=== PATIENT | female | born 1985 | race Caucasian/White ===

== ENCOUNTER 2024-03-19 13:34 | Emergency (ER) | payer BC, SELFPAY ==
[2024-03-19 13:40] VITALS: BP 125/85; PULSE 81; RESP 18; TEMP 36.8; O2SAT 100; BMI 30.1
[2024-03-19 14:13] LABS: Appearance Urine Clear (Clear); Bilirubin Urine Negative (Negative); Blood Urine 3+ (Negative); Color Urine Yellow (Yellow); Glucose Urine Negative (Negative); Ketones Urine Negative (Negative); Leukocyte Esterase Urine Trace (Negative); Nitrite Urine Negative (Negative); Protein Urine Negative (Negative); Urobilinogen Urine 0.2 (0.2-1.0)
[2024-03-19 14:26] LABS: Bacteria Urine Few; RBC Urine 0-2 (0-2); Squamous Epithelial Cell Urine Few (None-Few); WBC Urine 0-2 (0-5)
--- NOTE | 2024-03-19 15:16 | ED_ITS ---
HPI - General Adult General Date Seen: 03/19/24 Chief complaint: Unspecified Complaint, Adult Stated complaint: 22 week/4 days P, UTI symptoms Time Seen by Provider: 03/19/24 14:46 Source: patient History of Present Illness HPI narrative: Patient is a 38-year-old woman, , at around 22 weeks who presents with urinary symptoms. She is from [place], [place] is in the [place] [id number] for the time being over the holidays. Her 1st was uncomplicated. This she has noted some abdominal cramping she says kind of throughout. The cramping has been a little worse over the past day, she attributes this to poor dietary choices over [place], for example eating too much cheese. She has noted urinary urgency over the past day without associated other symptoms. She became concerned about possible UTI. She has not had any vaginal bleeding or discharge. She had a little bit of sharp right upper abdominal pain yesterday but that has since resolved. She has not had any flank pain. He has not had fevers, chills, nausea or vomiting. Related Data Home Medications ?Medication ?Instructions ?Recorded ?Confirmed cholecalciferol (vitamin D3) PO 03/19/24 03/19/24 docosahexaenoic acid [ DHA] PO 03/19/24 03/19/24 ondansetron HCl [Zofran] PO 03/19/24 03/19/24 Allergies Allergy/AdvReac Type Severity Reaction Status Date / Time No Known Drug Allergies Allergy Verified 03/19/24 13:48 Review of Systems Status of ROS: Reports: 10 or more systems reviewed and unremarkable except as noted in History and below PFSH [facility] Social History Smoking Status: Never smoker How often do you have a drink containing alcohol: never How often do you have six or more drinks on one occasion: Never AUDIT-C Alcohol total score: 0 Non-prescribed substance use: denies use service: No Exam Narrative: Exam Narrative: Vital signs reviewed In general, alert, nontoxic young woman. Head: Normocephalic, atraumatic. Eyes: Sclera clear. Pupils equal and reactive. ENT: Mucous membranes moist. Neck: Supple without adenopathy. Heart: Regular rate and rhythm without murmur. Lungs: Clear. No increased work of breathing, crackles or wheezes. Abdomen: Soft, nontender to palpation. Gravid. No CVA tenderness. Extremities: Well perfused, pulses intact. No significant edema. Neurologic: Alert, conversant. Speech fluent, face symmetric. Moves all extremities equally. Skin: Warm, dry well perfused. Affect: Normal. Const: Vital Signs, click to edit/add: Vital Signs - 24 hr 03/19/24 13:40 Temperature 98.3 F Pulse Rate [Right Pulse Oximeter] 81 Respiratory Rate 18 Blood Pressure [Ri ght Upper Arm] 125/85 Pulse Oximetry 100 Oxygen Delivery Me thod Room Air Documenting provider has reviewed patient's vital signs: yes Course Course ED Course: Initially, we obtained a urinalysis. This was read as showing 3+ blood on the dip, but 0-2 red cells and 0-2 white cells on the micro. She did have a few bacteria. Overall, I reviewed with her that the urinalysis is not strongly suggestive of urinary tract infection. She has not had symptoms for very long so it is possible that we are simply catching it early. However, I recommended that we do an ultrasound, make sure that her bladder is emptying appropriately and check for hydronephrosis. We also discussed her abdominal cramping. She feels strongly that this does not represent contractions and does not want any kind of monitoring at this time. Bedside ultrasound done by myself showed a fairly nondistended bladder. She had no hydronephrosis on the left, but she did have hydronephrosis on the right. I discussed her care with Dr. Martin, on-call for Ob here. Of course, patient is from out of town, and gets her care in [place] in terms of the . She is going to be in the lower however for a period of time if she is going from here to [place] and a couple of days and then on to [place] for a while. At this time, she is not significantly symptomatic, she does not have signs of systemic infection and urinalysis is unremarkable. I think if she has a kidney stone as an explanation for her hydronephrosis, it is unlikely to be causing significant problems at this time. As such, I do not think CT scan today is necessary or warranted. However, we discussed that if she develops flank pain, has fevers, chills, vomiting or other significant worsening, she should be seen in an ER where she is and consideration of CT scanning should be done at that time. Otherwise, I have asked her to follow-up with her OB when she gets back to [place]. I did prescribe Keflex on the off chance that this represents urinary tract infection. Discussed that hydronephrosis could be related to although she is fairly early for that finding. She is comfortable with that plan. Vital Signs Vital signs: Initial Vital Signs Temperature 98.3 F 03/19/24 13:40 Temperature Source Temporal Artery Scan 03/19/24 13:40 Pulse Rate 81 03/19/24 13:40 Pulse Rhythm Regular 03/19/24 13:40 Pulse Strength 3+ Normal 03/19/24 13:40 Respiratory Rate 18 03/19/24 13:40 Blood Pressure 125/85 03/19/24 13:40 Blood Pressure Mean 98 03/19/24 13:40 Blood Pressure Position Sitting 03/19/24 13:40 Pulse Oximetry 100 03/19/24 13:40 Oxygen Delivery Method Room Air 03/19/24 13:40 Vital Signs Temperature 98.3 F 03/19/24 13:40 Pulse Rate 81 03/19/24 13:40 Respiratory Rate 18 03/19/24 13:40 Blood Pressure 125/85 03/19/24 13:40 Pulse Oximetry 100 03/19/24 13:40 Oxygen Delivery Method Room Air 03/19/24 13:40 Temperature 98.3 F 03/19/24 13:40 Pulse Rate 81 03/19/24 13:40 Respiratory Rate 18 03/19/24 13:40 Blood Pressure 125/85 03/19/24 13:40 Pulse Oximetry 100 03/19/24 13:40 Oxygen Delivery Method Room Air 03/19/24 13:40 Medical Decision Making Lab Data Labs: Lab Results 03/19/24 Range/Units 14:02 Urine Color Yellow (Yellow) Urine Appearance Clear (Clear) Urine pH 6.0 (5.0-8.5) Ur Specific [place] 1.010 (1.000-1.030) Urine Protein Negative (Negative) Urine Glucose (UA) Negative (Negative) Urine Ketones Negative (Negative) Urine Blood 3+ A (Negative) Urine Nitrite Negative (Negative) Urine Bilirubin Negative (Negative) Urine Urobilinogen 0.2 (0.2-1.0) Ur Leukocyte Esterase Trace A (Negative) Urine RBC 0-2 (0-2) Urine WBC 0-2 (0-5) Ur Squamous Epith Cells Few (None-Few) Urine Bacteria Few A (None) Discharge Plan Discharge Clinical Impression: Urinary urgency, Hydronephrosis of right kidney Patient Disposition: Home, Self-Care Condition: Stable Instructions: Hydronephrosis (ED), Urinary Urgency and Frequency (DC) Additional Instructions: Take Keflex as prescribed. This is an antibiotic. Urine will be sent for culture, if this grows a specific bacteria that is resistant to this antibiotic we will call you. With regard to the findings in your right kidney on ultrasou nd, it is possible these could be caused by a kidney stone. Sometimes this can occur naturally during as the uterus gets bigger. For now, no specific treatment or diagnostic testing is needed. However, if you develop pain in your right flank, if you have fevers, chills, vomiting or otherwise feel sick, you should be seen again in an ER, and CT scan may be worthwhile at that time to see if you have a kidney stone. If you remain asymptomatic, I would recommend follow-up with your OB doctor when you get back home. In that case, you can tell them that we noted hydronephrosis of the right kidney, without significant blood in the urine. Prescriptions: No Action cholecalciferol (vitamin D3) PO docosahexaenoic acid [ DHA] PO ondansetron HCl [Zofran] PO Follow Up/Referrals: Provider,Not a Local [Primary Care Provider] - Stand Alone Forms: [employer] Info Instructions
--- OUTSIDE RECORDS SUMMARY | 2024-03-19 15:29 | XMS_ITS | Continuity of Care Document ---
Author Organization [facility] Address [address] [place] [address] Care Team Providers Care Radiation Therapy Technician Name Role Phone Mikayla James Primary Care Physician [phone] Encounter Date(s): 10/04/21 - 10/04/21 [facility] [address] [facility] [address] Discharge Disposition: Discharge Attending Physician: Tammy hCo, PJ, FUNMI Allergies, Adverse Reactions, Alerts No Known Allergies Assessment and Plan Future Scheduled Tests Laboratory* ALT 04/07/21 * ALT 07/06/21 * CBC w/ Auto Diff 09/14/21 * Hepatitis C Antibody 04/07/21 * Hepatitis C Antibody 07/06/21 * Urinalysis Macroscopic 02/15/21 * Urinalysis Microscopic 02/15/21 * HIV 1/2 Ag/Ab Combo 02/18/21 * HIV 1/2 Ag/Ab Combo 04/07/21 * HIV 1/2 Ag/Ab Combo 07/06/21 * COVID-19 PCR (In-House) 10/11/21 * COVID-19 PCR (In-House) 10/18/21 * COVID-19 PCR (In-House) 03/08/21 * COVID-19 PCR (In-House) 03/15/21 * COVID-19 PCR (In-House) 01/11/21 * COVID-19 PCR (In-House) 01/18/21 * COVID-19 PCR (In-House) 06/14/21 * COVID-19 PCR (In-House) 04/12/21 * COVID-19 PCR (In-House) 04/19/21 * COVID-19 PCR (In-House) 02/07/21 * COVID-19 PCR (In-House) 02/14/21 * COVID-19 PCR (In-House) 08/02/21 Immunizations Given and Recorded Vaccine Date Status Refusal Reason diphtheria/pertussis, acel/tetanus adult 1 09/12/21 Given SARS-CoV-2(C-19) mRNA (12y+ purple)-PFZ 12/23/20 G iven SARS-CoV-2(C-19) mRNA (12y+ purple)-PFZ 04/01/20 G iven SARS-CoV-2(C-19) mRNA (12y+ purple)-PFZ 2 03/11/20 Given influenza vaccine quadrivalent PF >36mo 3 01/12/20 Recorded influenza virus vaccine quadrivalent, in 12/25/18 Recorded influenza virus vaccine quadrivalent, in 01/06/18 Recorded influenza virus vaccine quadrivalent, in 02/04/17 Recorded influenza virus vaccine quadrivalent, in 01/02/16 Recorded influenza virus vaccine quadrivalent, in 01/31/15 Recorded tetanus/diphtheria/pertussis, acel(Tdap) 08/01/15 Recorded 1Early/Late Reason: Early/Late Reason: Nursing Judgment 2Result Comment: will get 2nd dose in [place], via [facility] - in 3 weeks (04/01/20) 3Result Comment: 2020-02-15: EMPLOYEE HEALTH, RISK & BENEFITS DISCUSSED Medications doxylamine 25 mg oral tablet = 0.5 tab(s), Oral, TID, PRN: for nausea, take with pyridoxine (vitamin B6), # 30 tab(s), 1 Refill(s), Start: 07/13/21 9:16:00 ELIANA, Pharmacy: [facility], Prescription Type: Internal Fixed Income Analyst, 178, cm, 06/21/21 16:51:00 ELIANA, H... Start Date: 07/13/21 Status: Ordered hydrOXYzine hydrochloride 10 mg oral tablet = 1 tab(s), Oral, QID, PRN: anxiety, # 30 tab(s), 0 Refill(s), Start: 07/11/21 11:25:00 ELIANA, Pharmacy: [facility], Prescription Type: Internal Fixed Income Analyst, Anxiety disorder, 178, cm, 06/21/21 16:51:00 AKDT, Height/Length Dosing,... Start Date: 07/11/21 Status: Ordered Multivitamins 1, Oral, Daily, 0 Refill(s), Start: 01/24/21 14:03:00 AKDT, Prescription Type: Internal Fixed Income Analyst Start Date: 01/24/21 Status: Ordered Vitamin B6 50 mg oral tablet = 1 tab(s), Oral, TID, PRN: Nausea, Take with doxylamine, # 180 tab(s), 0 Refill(s), Start: 04/24/21 8:55:00 AKST, Pharmacy: [facility], Prescription Type: Internal Fixed Income Analyst, 178, cm, 03/03/21 11:20:00 AKST, Height/Length Dosing... Start Date: 04/24/21 Status: Ordered Vitamin D3 25 mcg, Oral, Daily, 0 Refill(s), Start: 01/24/21 14:03:00 AKDT, Prescription Type: Internal Fixed Income Analyst Start Date: 01/24/21 Status: Ordered ZyrTEC Daily, 0 Refill(s), Start: 09/12/21 15:07:00 AKDT, Prescription Type: Internal Fixed Income Analyst Start Date: 09/12/21 Status: Ordered Problem List Condition Effective Dates Status Health Status Inform ant Anxiety disorder(Confirmed) Active AMA (advanced maternal age) primigravida 35+(Confirmed) Active Exercise-induced asthma(Confirmed) Active Maternal family history of dementia(Confirmed) Active Family history of malignant melanoma of skin(Confirmed) Active 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/21 Active Social History Social History Type Response Tobacco Tobacco Use: Denies tobacco use. 1 Sex Female 1in past >3yr pt would spoke only at parties socially, from [id number] Care Team Personnel Name: Mikayla James MD Address: Address: [address], [place] [address]
--- OUTSIDE RECORDS SUMMARY | 2024-03-19 15:29 | XMS_ITS | Continuity of Care Document ---
Author Organization [facility] Address [address] [place] [address] Care Team Providers Care Stonemason Apprentice Name Role Phone Mikayla James Primary Care Physician Encounter Date(s): 05/31/21 - 05/31/21 [facility] [address] [facility] [place] [address] Discharge Disposition: Discharge Attending Physician: Mikayla James MD Referring Physician: Mikayla James MD Allergies, Adverse Reactions, Alerts No Known Allergies Assessment and Plan Diagnostic Tests Pending * COVID-19 PCR (In-House) 05/31/21 Future Scheduled Tests Laboratory* ALT 04/07/21 * ALT 07/06/21 * Hepatitis C Antibody 04/07/21 * Hepatitis C Antibody 07/06/21 * Urinalysis Macroscopic 02/15/21 * Urinalysis Microscopic 02/15/21 * HIV 1/2 Ag/Ab Combo 02/18/21 * HIV 1/2 Ag/Ab Combo 04/07/21 * HIV 1/2 Ag/Ab Combo 07/06/21 * COVID-19 08/10/20 * COVID-19 PCR (In-House) 03/08/21 * COVID-19 PCR (In-House) 03/15/21 * COVID-19 PCR (In-House) 01/11/21 * COVID-19 PCR (In-House) 01/18/21 * COVID-19 PCR (In-House) 05/24/21 * COVID-19 PCR (In-House) 06/07/21 * COVID-19 PCR (In-House) 06/14/21 * COVID-19 PCR (In-House) 04/12/21 * COVID-19 PCR (In-House) 04/19/21 * COVID-19 PCR (In-House) 02/07/21 * COVID-19 PCR (In-House) 02/14/21 Immunizations Given and Recorded Vaccine Date Status Refusal Reason SARS-CoV-2 mRNA(tozinameran) vaccine-Pfz 12/23/20 Given SARS-CoV-2 mRNA(tozinameran) vaccine-Pfz 04/01/20 Given SARS-CoV-2 mRNA(tozinameran) vaccine-Pfz 1 03/11/20 Given influenza vaccine quadrivalent PF >36mo 2 01/12/20 Recorded influenza virus vaccine quadrivalent, in 12/25/18 Recorded influenza virus vaccine quadrivalent, in 01/06/18 Recorded influenza virus vaccine quadrivalent, in 02/04/17 Recorded influenza virus vaccine quadrivalent, in 01/02/16 Recorded influenza virus vaccine quadrivalent, in 01/31/15 Recorded tetanus/diphtheria/pertussis, acel(Tdap) 08/01/15 Recorded 1Result Comment: will get 2nd dose in [place], via [facility] - in 3 weeks (04/01/20) 2Result Comment: 2020-02-15: EMPLOYEE HEALTH, RISK & BENEFITS DISCUSSED Medications doxylamine 25 mg oral tablet = 0.5 tab(s), Oral, TID, PRN: for nausea, take with pyridoxine (vitamin B6), # 30 tab(s), 0 Refill(s), Start: 04/24/21 8:55:00 AKST, Pharmacy: [facility], Prescription Type: Internal Scuba Diving Instructor, 178, cm, 03/03/21 11:20:[address]... Start Date: 04/24/21 Status: Ordered Multivitamins 1, Oral, Daily, 0 Refill(s), Start: 01/24/21 14:03:00 AKDT, Prescription Type: Internal Scuba Diving Instructor Start Date: 01/24/21 Status: Ordered Vitamin B6 50 mg oral tablet = 1 tab(s), Oral, TID, PRN: Nausea, Take with doxylamine, # 180 tab(s), 0 Refill(s), Start: 04/24/21 8:55:00 AKST, Pharmacy: [facility], Prescription Type: Internal Scuba Diving Instructor, 178, cm, 03/03/21 11:20:00 AKST, Height/Length Dosing... Start Date: 04/24/21 Status: Ordered Vitamin D3 25 mcg, Oral, Daily, 0 Refill(s), Start: 01/24/21 14:03:00 AKDT, Prescription Type: Internal Scuba Diving Instructor Start Date: 01/24/21 Status: Ordered Problem List Condition Effective Dates Status Health Status Inform ant Anxiety disorder(Confirmed) Active AMA (advanced maternal age) primigravida 35+(Confirmed) Active Exercise-induced asthma(Confirmed) Active Maternal family history of dementia(Confirmed) Active Family history of malignant melanoma of skin(Confirmed) Active (Confirmed) 02/27/21 Active Social History Social History Type Response Tobacco Tobacco Use: Denies tobacco use. 1 Sex Female 1in past >3yr pt would spoke only at parties socially, from [phone]
--- OUTSIDE RECORDS SUMMARY | 2024-03-19 15:29 | XMS_ITS | Continuity of Care Document ---
Author Organization [facility] Address [address] [place] [address] Care Team Providers Care Cashier Credit Name Role Phone Mikayla James Primary Care Physician [phone] Encounter Date(s): 11/01/21 - 11/01/21 [facility] [address] [place] [facility] [place] [address] Discharge Disposition: Discharge Attending Physician: Tammy Cho, PJ, FUNMI Allergies, Adverse Reactions, Alerts No [...] Ag/Ab Combo 07/06/21 * COVID-19 PCR (In-House) 03/08/21 * COVID-19 PCR (In-House) 03/15/21 * COVID-19 PCR (In-House) 01/11/21 * COVID-19 PCR (In-House) 01/18/21 * COVID-19 PCR (In-House) 06/14/21 * COVID-19 PCR (In-House) 04/12/21 * COVID-19 PCR (In-House) 04/19/21 * COVID-19 PCR (In-House) 11/08/21 * COVID-19 PCR (In-House) 11/15/21 * COVID-19 PCR (In-House) 11/22/21 * COVID-19 PCR (In-House) 02/07/21 * COVID-19 [...] 2Result Comment: will get 2nd dose in [place], via [facility] - in 3 weeks (04/01/20) 3Result Comment: 2020-02-15: EMPLOYEE HEALTH, RISK & BENEFITS DISCUSSED Medications famotidine 10 mg oral tablet = 1 tab(s), Oral, BID, # 60 tab(s), 1 Refill(s), Start: 10/11/21 13:59:00 AKDT, Pharmacy: [facility], Prescription Type: Internal Hydrator, 178, cm, 10/11/21 13:31:00 AKDT, Height/Length Dosing, 92.9, kg, 10/11/21 13:31:00 AKDT... Start Date: 10/11/21 Status: Ordered hydrOXYzine hydrochloride 10 mg oral tablet = 1 tab(s), Oral, QID, PRN: anxiety, # 30 tab(s), 0 Refill(s), Start: 07/11/21 11:25:00 AKDT, Pharmacy: [facility], Prescription Type: Internal Hydrator, Anxiety disorder, 178, cm, 06/21/21 16:51:00 AKDT, Height/Length Dosing,... Start Date: 07/11/21 Status: Ordered Multivitamins 1, Oral, Daily, 0 Refill(s), Start: 01/24/21 14:03:00 AKDT, Prescription Type: Internal Hydrator Start Date: 01/24/21 Status: Ordered Vitamin B6 50 mg oral tablet = 1 tab(s), Oral, TID, PRN: Nausea, Take with doxylamine, # 180 tab(s), 0 Refill(s), Start: 04/24/21 8:55:00 AKST, Pharmacy: [facility], Prescription Type: Internal Hydrator, 178, cm, 03/03/21 11:20:00 AKST, Height/Length Dosing... Start Date: 04/24/21 Status: Ordered Vitamin D3 25 mcg, Oral, Daily, 0 Refill(s), Start: 01/24/21 14:03:00 AKDT, Prescription Type: Internal Hydrator Start Date: 01/24/21 Status: Ordered ZyrTEC Daily, 0 Refill(s), Start: 09/12/21 15:07:00 AKDT, Prescription Type: Internal Hydrator Start Date: 09/12/21 Status: Ordered Problem List Condition Effective Dates Status Health Status Inform ant Anxiety disorder(Confirmed) Active AMA (advanced maternal age) primigravida 35+(Confirmed) Active Exercise-induced asthma(Confirmed) Active Maternal family history of dementia(Confirmed) Active Family history of malignant melanoma of skin(Confirmed) Active 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/21 Active Results Radiology Reports * Exam Date Time Procedure Performing Provider Status 11/01/21 8:40 AM US OB Limited - One or More Fetuses Elzbieta Webber; Auth (Verified) Notes: (US OB Limited - One or More Fetuses) Reason For Exam: BPP Report Patient Name: DYLON HEREDIA Patient : 1985 Referring Physician: Tammy Cho Exam: US OB Limited - One or More Fetuses Exam Reason: BPP Follow-up OB ultrasound. Comparison: None Findings: Single intrauterine is again demonstrated with fetus in cephalic presentation. The placenta is located posteriorly. The lower uterine segment is obscured by baby's head. The amniotic fluid index measured 12.3 cm. heart rate measured 138 bpm. biophysical profile was assessed as follows: breathing 2/2 tone 2/2 general body movement 2/2 Impression: Single intrauterine with biophysical profile score / Radiologist: Leonora Rodriguez MD Signed: 11/01/2021 8:53 AM Transcribed: 11/01/2021 8:50 AM Leonora Rodriguez MD Final Report Dictated by: Leonora Rodriguez MD Signed by: Leonora Rodriguez MD Signed (Electronic Signature): 11/01/2021 08:53 Transcribed by: LE Social History Social History Type Response Tobacco Tobacco Use: Denies tobacco use. 1 Sex Female 1in past >3yr pt would spoke only at parties socially, from [id number] Imaging * CONTRIBUTOR_SYSTEM, NUANCE: PERFORM Leonora Rodriguez MD: VERIFY, VERIFY Leonora Rodriguez MD: VERIFY, TRANSCRIBE Leonora Rodriguez MD: TRANSCRIBE Event Display: Report Authored Date: [id number] Patient Name: DYLON HEREDIA Patient : 1985 Referring Physician: Tammy Cho Exam: US OB Limited - One or More Fetuses Exam Reason: BPP Follow-up OB ultrasound. Comparison: None Findings: Single intrauterine is again demonstrated with fetus in cephalic presentation. The placenta is located posteriorly. The lower uterine segment is obscured by baby's head. The amniotic fluid index measured 12.3 cm. heart rate measured 138 bpm. biophysical profile was assessed as follows: breathing 2/2 tone 2/2 general body movement 2/2 Impression: Single intrauterine with biophysical profile score / Radiologist: Leonora Rodriguez MD Signed: 11/01/2021 8:53 AM Transcribed: 11/01/2021 8:50 AM Leonora Rodriguez MD Final Report Dictated by: Leonora Rodriguez MD Signed by: Leonora Rodriguez MD Signed (Electronic Signature): 11/01/2021 08:53 Transcribed by: RUSLAN Care Team Care Team Personnel Name: Mikayla James MD Position: Rural Provider ([facility]) Member Role: Primary Care Provider Address: Address: [address] [address]- [place] Care Team Related Persons Name: EARNEST HEREDIA Address: Home [place] Name: EARNEST HEREDIA Address: Home [address] [place] [address] Name: MANJEET ARIAS Address: [address] [address] Address: Home [address] [place] [id number] Address: Mailing [address] [place] [id number]
--- OUTSIDE RECORDS SUMMARY | 2024-03-19 15:29 | XMS_ITS | Continuity of Care Document ---
Author Organization [facility] Address [address] [facility] [place] [address] Care Team Providers Care Curator Of Manuscripts Name Role Phone Mikayla James Primary Care Physician [phone] Encounter Date(s): 06/21/21 - 06/21/21 [facility] [address] [facility] [place] [address] [place] [phone] Encounter Diagnosis (Discharge Diagnosis) - 06/21/21 Rash(Discharge Diagnosis) - 06/21/21 Discharge Disposition: Discharge Attending Physician: Tammy Cho FNP, DNP Allergies, Adverse Reactions, Alerts No Known Allergies Assessment and Plan Extracted from: Title:[facility]: rash Author:Scott Cho FNP, DNP Date:06/21/21 Overall doing well except nausea and now noted rash Continue with conservative management of nausea with small frequent meals. She did not find meds particularly helpful and trying to avoid Delivery- [place] - interested Circumcision- need to discuss at next visit her thoughts Post delivery contraception- need to discuss at next visit Ordered: Office Visit Est 10-19 Min Rash Pictures obtained and sent to [facility] [employer] DDx is broad- could just be eczema that is now more pronounced. Seems early in for PUPPS or intrahepatic cholestasis and it is not itchy. Labs obtained showing now significant red flags Ordered: CBC w/ Auto Diff CMP WB Office Visit Est 10-19 Min Future Scheduled Tests Laboratory* ALT 04/07/21 * [...] PCR (In-House) 01/18/21 * COVID-19 PCR (In-House) 06/28/21 * COVID-19 PCR (In-House) 07/05/21 * COVID-19 PCR (In-House) 07/12/21 * COVID-19 PCR (In-House) 07/19/21 * COVID-19 PCR (In-House) 06/14/21 * COVID-19 [...] 1Result Comment: will get 2nd dose in [place],her [place], via [facility] - in 3 weeks (04/01/20) 2Result Comment: 2020-02-15: EMPLOYEE HEALTH, RISK & BENEFITS DISCUSSED Medications doxylamine 25 mg oral tablet = 0.5 tab(s), Oral, TID, PRN: for nausea, take with pyridoxine (vitamin B6), # 30 tab(s), 1 Refill(s), Start: 06/07/21 14:49:00 AKDT, Pharmacy: [facility], Prescription Type:Internal Coffee Roaster Helper, 178, cm, 03/03/21 11:20:00 AKST,... Start Date: 06/07/21 Status: Ordered Multivitamins 1, Oral, Daily, 0 Refill(s), Start: 01/24/21 14:03:00 AKDT, Prescription Type: Internal Coffee Roaster Helper Start Date: 01/24/21 Status: Ordered Vitamin B6 50 mg oral tablet = 1 tab(s), Oral, TID, PRN: Nausea, Take with doxylamine, # 180 tab(s), 0 Refill(s), Start: 04/24/21 8:55:00 AKST, Pharmacy: [facility], Prescription Type: Internal Coffee Roaster Helper, 178, cm, 03/03/21 11:20:00 AKST, Height/Length Dosing... Start Date: 04/24/21 Status: Ordered Vitamin D3 25 mcg, Oral, Daily, 0 Refill(s), Start: 01/24/21 14:03:00 AKDT, Prescription Type: Internal Coffee Roaster Helper Start Date: 01/24/21 Status: Ordered Problem List Condition Effective Dates Status Health Status Inform ant Anxiety disorder(Confirmed) Active AMA (advanced maternal age) primigravida 35+(Confirmed) Active Exercise-induced asthma(Confirmed) Active Maternal family history of dementia(Confirmed) Active Family history of malignant melanoma of skin(Confirmed) Active (Confirmed) 02/27/21 Active Diagnosis Diagnosis Type Effective Dates Health Status Clini veronique Service Informant Discharge Diagnosis 06/21/21 Non-Specified Rash Discharge Diagnosis 06/21/21 Non-Specified Vital Signs Most recent to oldest [Reference Range]: 1 Temperature Temporal Artery [97.3-100.6 DegF] 97.8 DegF (06/21/21 4:51 PM) Peripheral Pulse Rate [60-100 bpm] 68 bp m (06/21/21 4:51 PM) Respiratory Rate [14-20 br/min] 12 br/mi n *LOW* (06/21/21 4:51 PM) Blood Pressure [90-140/60-90 mmHg] 105/7 3mmHg (06/21/21 4:51 PM) Mean Arterial Pressure, Cuff [59-90 mmHg ] 84 mmHg (06/21/21 4:51 PM) SpO2 100 % (06/21/21 4:51 PM) Social History Social History Type Response Tobacco Tobacco Use: Denies tobacco use. 1 Sex Female 1in past >3yr pt would spoke only at parties socially, from [phone]
--- OUTSIDE RECORDS SUMMARY | 2024-03-19 15:29 | XMS_ITS | Continuity of Care Document ---
Author Organization [facility] [place] [facility] Address [address] [place] [address], [place] [address] Care Team Providers Care Highway Patrol Commander Name Role Phone Mikayla James Primary Care Physician Encounter Date(s): 10/27/21 - 10/27/21 [facility] [address] [facility] [place] [address] [place] [phone] Encounter Diagnosis Circumvallate placenta(Discharge Diagnosis) - 10/27/21 AMA (advanced maternal age) primigravida 35+(Discharge Diagnosis) - 10/27/21 (Discharge Diagnosis) - 10/27/21 Discharge Disposition: Discharge Attending Physician: Tammy Cho FNP, FUNMI Allergies, Adverse Reactions, Alerts No Known Allergies Assessment and Plan Extracted from: Title:[facility]: f/u ob Author:Tammy Cho F FARM TRACTOR OPERATOR, DNP Date:10/27/21 1. Suspect round ligament pain after playing freebee: UA unremarkable -offered pelvic exam to evaluate for BV and /or candidiasis-declines at this time -open to exam if sx continue Due for GBS at 36 weeks Delivery- [place] with Dr. Cuellar or Dr. Frederick - interested Circumcision- if boy would like circumcision Post delivery contraception- condoms Ordered: Office Visit Est 20-29 Min Referral Urinalysis with Reflex Microscopic US OB Limited - One or More Fetuses 2. Circumvallate placenta Will obtain follow up u/s next week to ensure ongoing stable placental and good growth. Ordered: Office Visit Est 20-29 Min 3. AMA (advanced maternal age) primigravida 35+ antepartum monitoring (NST 2x/week and JACQUES weekly) began at 34 weeks or BPP weekly-u/s clinic next week so will obtain BPP-order placed. -Transfer of care at 37 weeks-has housing and apt with tablet coater established Point of Care Ultrasound (POCUS) images JACQUES calculated at 13.9 . No fluid pocket less than cm. Active FM and cardiac activity observed. NST showing good HR variability and no contractures. Plan face to face follow up in 1 week or RTC/call sooner if health status worsens or concerns develop. 20-29 minutes were spent performing the following activities on the day of service: reviewing the patient's medical record, obtaining and/or reviewing separately obtained history, performing a medically appropriate history and examination, counseling and educating the patient/family/caregiver, ordering prescription medications/tests/procedures, referring and communicating with other health care providers during visit, documenting clinical information in the electronic health record, independently interpreting results, communicating results to the patient/family/caregiver, and/or coordinating the care of the patient. Future Scheduled Tests Laboratory* ALT 04/07/21 * [...] PCR (In-House) 04/19/21 * COVID-19 PCR (In-House) 11/01/21 * COVID-19 PCR (In-House) 11/08/21 * COVID-19 PCR (In-House) 11/15/21 * COVID-19 PCR (In-House) 11/22/21 * COVID-19 PCR (In-House) 02/07/21 * COVID-19 PCR (In-House) 02/14/21 * COVID-19 PCR (In-House) 08/02/21 Radiology* US OB Limited - One or More Fetuses 11/01/21 Immunizations Given and Recorded Vaccine Date Status [...] 2Result Comment: will get 2nd dose in [place],her hometown, via [facility] - in 3 weeks (04/01/20) 3Result Comment: 2020-02-15: EMPLOYEE HEALTH, RISK & BENEFITS DISCUSSED Medications famotidine 10 mg oral tablet = 1 tab(s), Oral, BID, # 60 tab(s), 1 Refill(s), Start: 10/11/21 13:59:00 AKDT, Pharmacy: [facility], Prescription Type: Internal Stock Feeder, 178, cm, 10/11/21 13:31:00 AKDT, Height/Length Dosing, 92.9, kg, 10/11/21 13:31:00 AKDT... Start Date: 10/11/21 Status: Ordered hydrOXYzine hydrochloride 10 mg oral tablet = 1 tab(s), Oral, QID, PRN: anxiety, # 30 tab(s), 0 Refill(s), Start: 07/11/21 11:25:00 AKDT, Pharmacy: [facility], Prescription Type: Internal Stock Feeder, Anxiety disorder, 178, cm, 06/21/21 16:51:00 AKDT, Height/Length Dosing,... Start Date: 07/11/21 Status: Ordered Multivitamins 1, Oral, Daily, 0 Refill(s), Start: 01/24/21 14:03:00 AKDT, Prescription Type: Internal Stock Feeder Start Date: 01/24/21 Status: Ordered Vitamin B6 50 mg oral tablet = 1 tab(s), Oral, TID, PRN: Nausea, Take with doxylamine, # 180 tab(s), 0 Refill(s), Start: 04/24/21 8:55:00 AKST, Pharmacy: [facility], Prescription Type: Internal Stock Feeder, 178, cm, 03/03/21 11:20:00 AKST, Height/Length Dosing... Start Date: 04/24/21 Status: Ordered Vitamin D3 25 mcg, Oral, Daily, 0 Refill(s), Start: 01/24/21 14:03:00 AKDT, Prescription Type: Internal Stock Feeder Start Date: 01/24/21 Status: Ordered ZyrTEC Daily, 0 Refill(s), Start: 09/12/21 15:07:00 AKDT, Prescription Type: Internal Stock Feeder Start Date: 09/12/21 Status: Ordered Problem List Condition Effective Dates Status Health Status Inform ant Anxiety disorder(Confirmed) Active AMA (advanced maternal age) primigravida 35+(Confirmed) Active Exercise-induced asthma(Confirmed) Active Maternal family history of dementia(Confirmed) Active Family history of malignant melanoma of skin(Confirmed) Active 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/21 Active Diagnosis Diagnosis Type Effective Dates Health Status Clinical Service Informant Discharge Diagnosis 10/27/21 Circumvallate placenta Discharge Diagnosis 10/27/21 AMA (advanced maternal age) primigravida 35+ Discharge Diagnosis 10/27/21 Results Laboratory List Name Date Urinalysis with Reflex Microscopic 2 Most recent to oldest [Reference Range]: 1 Specific Alba [1.005-1.030] 1.015 (10/27/21 11:22 AM) pH - Urine [5-8] 7.0 (10/27/21 11:22 AM) Leukocytes Esterase [NEGATIVE-NEGATIVE] NEGATIVE (10/27/21: AM) Nitrites [NEGATIVE-NEGATIVE] NEGATIVE (10/27/21 AM) Protein [NEGATIVE-NEGATIVE mg/dL] NEGATI VE mg/dL (10/27/21 11:22 AM) Ketones [NEGATIVE-NEGATIVE mg/dL] NEGATI VE mg/dL (10/27/21: AM) Urobilinogen [0.2-1.0 EU/dL] 0.2 EU/dL (10/27/21 11:22 AM) Bilirubin [NEGATIVE-NEGATIVE] NEGATIVE (10/27/21 AM) Blood [NEGATIVE-NEGATIVE] NEGATIVE (10/27/21 AM) COLOR - Urine [YELLOW] YELLOW (10/27/21: AM) Glucose UA [NEGATIVE-NEGATIVE mg/dL] NEG ATIVE mg/dL (10/27/21: AM) Urine Appearance [CLEAR] CLEAR (10/27/21: AM) Urine Source Clean Catch (10/27/21 11: AM) Vital Signs Most recent to oldest [Reference Range]: 1 Temperature Temporal Artery [97.3-100.6 DegF] 96.8 DegF *LOW* (10/27/21 10:54 AM) Peripheral Pulse Rate [60-100 bpm] 75 bp m (10/27/21 10:54 AM) Respiratory Rate [14-20 br/min] 16 br/mi n (10/27/21 10:54 AM) Blood Pressure [90-140/60-90 mmHg] 116/7 9mmHg (10/27/21 10:54 AM) Mean Arterial Pressure, Cuff [59-90 mmHg ] 91 mmHg *HI* (10/27/21 10:54 AM) SpO2 100 % (10/27/21 10:54 AM) Height/Length Dosing 178 cm (10/27/21 10:54 AM) Height/Length Measured 178 cm (10/27/21 10:54 AM) Weight Measured 94.3 kg (10/27/21 10:54 AM) Weight Dosing 94.3 kg (10/27/21 10:54 AM) Body Mass Index Measured 29.76 kg/m2 (10/27/21 10:54 AM) Social History Social History Type Response Tobacco Tobacco Use: Denies tobacco use. 1 Sex Female 1in past >3yr pt would spoke only at parties socially, from [id number] OB Documentation-Provider * Tammy Cho, INSPECTOR SUBASSEMBLIES, DNP: PERFORM Event Display: OB Documentation-Provider Authored Date: [id number] Chief Complaint OB here for NST and JACQUES Para Information: ??:??1 ??Para Term:??0 ??Para :??0 ??Para Abortions:??0 ??Para Living:??0 BUTCH/EGA Gestational Age (EGA) and BUTCH? * Note: EGA calculated as of 10/27/2021 ?? BUTCH:??12/04/2021?EGA*:??34 weeks 4 days ?Type:??Initial?Method Date:??02/27/2021 ?Method:??Last Menstrual Period??(02/27/2021) ?Confirmation:??Confirmed ?Description:??-- ?Comments:??-- ?Entered by:??Teresa Brooks, LENI on 04/14/2021? Other BUTCH Calculations for this : ?No additional BUTCH calculations have been recorded for this History of Present Illness Ms. Heredia is a evert 35 yo female who is . Today gestation??34 wk and??4 days. BUTCH 12/04/2021. ?? Presents today for OB follow up. Initially evaluated at [place] [facility] for circumvallate placenta but she and baby have been doing well. Now established with Dr. Cuellar/Dr. Frederick in [place]. Plans to travel at 37 weeks to [place] and await delivery. Still having occasional nausea, but much improved. Finds that taking famotidine has been helpful. ?? Shares that she to a nice walk with partner the other day and then played frishbee. Noted after to have lower abd cramping that has been persistent. No BH or contractions. Denies any vaginal discharge. Good movement. Has noted this issues intermittently in , but usually resolves. Review of Systems Patient has vitamins and is compliant. Patient does not have scotoma or other visual disturbance. Patient does not have headache. Patient does occcasionally??have nausea or vomiting. Patient does not have back pain. Patient does??have lower abdominal /pelvic pain. Patient does not have contractions. Patient does not have Anurag Feldman contractions. Patient does not have vaginal discharge present. Patient does not have vaginal bleeding. Patient does not have dysuria. Patient is having?? movement. Patient does not have swelling in the legs/ankles/hands. ?? Physical Exam Vitals & Measurements T:??96.8?F ??(Temporal Artery)?? HR:??75??(Peripheral)?? RR:??16?? BP:??116/79?? SpO2:??100%?? HT:??178??cm?? WT:??94.3??kg?? BMI:??29.76?? Visit Assessment EGA, per Visit: 34W 4D (10/27/21) Weight Measured: 94.3 kg (10/27/21) Fundal Height: 33 cm (10/27/21) Systolic Blood Pressure: 116 mmHg (10/27/21) Diastolic Blood Pressure: 79 (10/27/21) Mean Arterial Pressure, Cuff:??91 mmHg??High (10/27/21) Labor Signs/Symptoms: Pelvic pain (10/27/21) Next Appointment: 1 week(s) (10/27/21) Baby A - Heart Tones: 135 bpm (10/27/21) Baby A - Activity: Present per palpation (10/27/21) GEN: Well developed well nourished??. Patient appears alert and oriented, in no apparent distress. HEENT: Normocephalic, atraumatic. NECK: Symmetrical and Supple without lymphadenopathy or masses. RESP: Lungs clear to auscultation bilaterally. Good air movement and chest expansion. HEART: Regular rate. Capillary refill <2 seconds. Radial pulses +2 bilaterally. ABD: FH 33cm. FHR 135-140 EXT: No clubbing, cyanosis or pedal edema. NEURO: No focal deficits noted.?? Equal strength and coordination noted bilaterally. PSYCH: Normal mood and affect. Good eye contact and engages easily. Reliable historian. ?? 03/31/2021 U HCG Positive ?? 05/14/2021 HBsAg negative HIV non reactive HCV negative RPR negative gluc 94 Hgb A1c 4.7% Vitamin D 53.2 ABO (0) RH (Positive) CBC: wbc 7.5, H/H 13.4/37.2, PLT 308 UA : gluc neg, bili neg, ket neg, SG 1.025, Bld Neg, PH 5.5, Pro neg, Nit neg, leuk neg Chl/GC- negative Urine culture- no growth ? 05/17/2021 [id number]: negative for all testing??completed?06/21/2021 CMP: NA 134, K 3.5, Glu 122 (just ate), CA 9.6, Bun 11, Creat 0.6, ALKP 62, ALT 21, AST 21, Tbil 0.5, TP 6.9, eGFR 113 CBC wbc 10.8, H/H 12.9/35.7, PLT 302: ?? 08/15/2021: 2GTT: 1 Hr (95) 2HR (64) FBS 87 ? CBC: wbc 10.2, HH 10.2/12.9, PLT 313 ?? 09/12/2021: Tdap ? 05/17/2021 U/s [facility] [place]:??per rad read: consistent with 12 weeks 0 days gestation. Large gestational sac showing echogenic structure suggestive of placenta which seems overly large compared to the size of the poles and there is echogenicity surrounding the large portion of this structure concerning??for subchorionic hemorrhage and possible abruption. ?? 05/24/2021 U/s [place]??[place]: per rad read: u/s consistent with 12 w 2d corresponding with BUTCH 12/04/2021. Nuchal translucency is normal measuring 0.9mm. JACQUES normal for a gestation. Placenta posterior with superior eccentric PCI. Early appearance of circumvallate development with no retroplacental collection or abruption suspected. Hyperechoic area on the anterior uterine wall is noted and may represent an old subchorionic collection or previously identified uterine polyp. Follow up recommended at 18 weeks gestation. ?? 05/24/[address] Patel at [place] notes: recommend repeating evaluation??at 18 weeks gestation. Area of concern possible subchorionic collection. posterior placenta??appears to be developing circumvallate with slightly eccentric superior cord insertion. Small anterior retromembranous ech ogenic area may represent prior subchorionic hemorrhage or previously noted polyp. ?? 07/03/[address] Patel at [place] notes: recommended repeating u/s in 8weeks to followup circumvallate placenta and for better visualization of face and heart which were not fully seen on u/s. U/s showed growth 61% and AC is at 55%. Placenta posterior and abnormal in appearance demonstrating folding of the lateral edges. Findings suspected to be that of circumvallate placenta.Uterine wall contraction was note don u/s. ?? 10/05/2021 u/s [facility] rad read: 32 w 4d. appropriate growth. Posterior placenta. CL 3.4. circumvallate placenta unchanged. JACQUES 14.6 Assessment/Plan 1.?? Suspect round ligament pain after playing freebee: UA unremarkable -offered pelvic exam to evaluatefor BV and /or candidiasis-declines at this time -open to exam if sx continue ?? Due for GBS at 36 weeks ?? Delivery- [place] with Dr. Cuellar or Dr. Frederick - interested Circumcision- if boy would like circumcision Post delivery contraception- condoms Ordered: Office Visit Est 20-29 Min Referral Urinalysis with Reflex Microscopic US OB Limited - One or More Fetuses ?? 2.??Circumvallate placenta Will obtain follow up u/s next week to ensure ongoing stable placental and good growth. Ordered: Office Visit Est 20-29 Min ?? 3.??AMA (advanced maternal age) primigravida 35+ antepartum monitoring (NST 2x/week and JACQUES weekly) began at?? 34 weeks or BPP weekly-u/s clinic next week so will obtain BPP-order placed. -Transfer of care at 37 weeks-has housing and apt with tablet coater established ?? Point of Care Ultrasound (POCUS) images? JACQUES calculated at 13.9??.?? No fluid pocket less than cm.?? Active FM and cardiac activity observed.? NST showing good HR variability and no contractures. ? Plan face to face follow up in 1 week??or RTC/call sooner if health status worsens or concerns develop. ?? 20-29 minutes were spent performing the following activities on the day of service:?? reviewing the patient's medical record, obtaining and/or reviewing separately obtained history, performing a medically appropriate history and examination, counseling and educating the patient/family/caregiver,ordering prescription medications/tests/procedures, referring and communicating with other health care providers during visit, documenting clinical information in the electronic health record, independently interpreting results, communicating results to the patient/family/caregiver, and/or coordinating the care of the patient.? Plan No qualifying data available. Medications famotidine 10 mg oral tablet, 10 mg= 1 tab(s), Oral, BID, 1 refills hydrOXYzine hydrochloride 10 mg oral tablet, 10 mg= 1 tab(s), Oral, QID, PRN Multivitamins, 1, Oral, Daily Vitamin B6 50 mg oral tablet, 50 mg= 1 tab(s), Oral, TID, PRN Vitamin D3, 25 mcg, Oral, Daily ZyrTEC, Daily Allergies NKA Gynecological History ?? History?(0,0,0,0)?No previous pregnancies history have been recorded Problem List/Past Medical History Ongoing AMA (advanced maternal age) primigravida 35+ Anxiety disorder Circumvallate placenta Exercise-induced asthma Family history of malignant melanoma of skin Maternal family history of dementia Historical Dysuria Social History Alcohol Denies alcohol use, not drinking due to , 06/21/2021 Current, Beer, Wine, Liquor, 1-2 times per week, Household alcohol concerns: No., 02/15/2020 Substance Abuse Denies substance abuse, 02/15/2020 Tobacco Tobacco Use: Denies tobacco use., 02/15/2020 Risk Factors, Ethnic & Genetic Disorder Screening Risk Factors (Current ) ?No risk factors have been recorded for this . ?? Ethnic Screening ?No ethnicities have been recorded. ?? Genetic Disorders Screening ?No genetic disorders have been recorded. PJ Tate, DNP Care Team Care Team Personnel Name: Mikayla James MD Position: Rural Provider ([facility]) Member Role: Primary Care Provider Address: Address: [address] [address]- Care Team Related Persons Name: EARNEST HEREDIA Address: [facility] Name: EARNEST HEREDIA Address: Home [address] [place] [address] Name: MANJEET ARIAS Address: [address] [address] Address: Home [address] [place] [id number] Address: Mailing [address] [place] [id number]
--- OUTSIDE RECORDS SUMMARY | 2024-03-19 15:29 | XMS_ITS | Continuity of Care Document ---
Author Organization [facility] Address [address] [facility] [place] [address] Care Team Providers Care Signal Helper Name Role Phone Mikayla aJmes Primary Care Physician [phone] Encounter Date(s): 04/12/21 - 04/12/21 [facility] [address] [facility] [place] [address] Discharge Disposition: Discharge Attending Physician: Mikayla James [...] HIV 1/2 Ag/Ab Combo 07/06/21 * COVID-19 05/04/20 * COVID-19 05/11/20 * COVID-19 08/10/20 * COVID-19 PCR (In-House) 03/08/21 * COVID-19 PCR (In-House) 03/15/21 * COVID-19 PCR (In-House) 01/11/21 * COVID-19 PCR (In-House) 01/18/21 * COVID-19 PCR (In-House) 04/12/21 * COVID-19 PCR (In-House) 04/19/21 * COVID-19 PCR (In-House) 02/07/21 * COVID-19 PCR (In-House) 02/14/21 Radiology* US OB 1st Trimester Single Gestation 05/17/21 * US OB Transvaginal 05/17/21 Immunizations Given and Recorded Vaccine Date Status [...] 1Result Comment: will get 2nd dose in [place], via [facility] - in 3 weeks (04/01/20) 2Result Comment: 2020-02-15: EMPLOYEE HEALTH, RISK & BENEFITS DISCUSSED Medications Ativan 1 mg oral tablet = 1 tab(s), Oral, BID, PRN: flight anxiety, # 6 tab(s), 0 Refill(s), Start: 03/02/21 11:51:00 AKST,Stop: 08/23/21 8:00:00 AKDT, Pharmacy: [facility], Prescription Type: Internal Spanish Lecturer, 178, cm, 02/15/21 15:47:00 AKST, Height... Start Date: 03/02/21 Stop Date: 08/23/21 Status: Ordered hydrOXYzine hydrochloride 25 mg oral tablet = 1 tab(s), Oral, QID, PRN: anxiety, # 15 tab(s), 0 Refill(s), Start: 03/02/21 16:46:00 AKST, Stop:05/23/21 12:03:00 AKST, Pharmacy: [facility], Prescription Type: Internal Spanish Lecturer, 178, cm, 02/15/21 15:47:00 AKST, Height/Jessica... Start Date: 03/02/21 Stop Date: 3/1/22 Status: Ordered Multivitamins 1, Oral, Daily, 0 Refill(s), Start: 01/24/21 14:03:00 AKDT, Prescription Type: Internal Spanish Lecturer Start Date: 01/24/21 Status: Ordered Vitamin D3 25 mcg, Oral, Daily, 0 Refill(s), Start: 01/24/21 14:03:00 AKDT, Prescription Type: Internal Spanish Lecturer Start Date: 01/24/21 Status: Ordered Problem List Condition Effective Dates Status Health Status Inform ant Anxiety disorder(Confirmed) Active Exercise-induced asthma(Confirmed) Active Family history of malignant melanoma of skin(Confirmed) Active Social History Social History Type Response Tobacco Tobacco Use: Denies tobacco use. 1 Sex Female 1in past >3yr pt would spoke only at parties socially, from [id number]
--- OUTSIDE RECORDS SUMMARY | 2024-03-19 15:29 | XMS_ITS | Continuity of Care Document ---
Author Organization [facility] Address [address] [place] [id number] Care Team Providers Care Corporate Security Officer Name Role Phone Mikayla James Primary Care Physician [phone] Encounter Date(s): 11/10/21 - 11/10/21 [facility] [address] [place] [address] Encounter Diagnosis (Discharge Diagnosis) - 11/10/21 Febrile(Discharge Diagnosis) - 11/10/21 Nausea(Discharge Diagnosis) - 11/10/21 Headache(Discharge Diagnosis) - 11/10/21 COVID(Discharge Diagnosis) - 11/10/21 Discharge Disposition: Discharge Attending Physician: Tammy Cho FNP, DNP Allergies, Adverse Reactions, Alerts No Known Allergies Assessment and Plan Extracted from: Title:[facility]: COVID and Author:Deb Cho FNP, DNP Date:11/10/21 1. 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 Bebtelovimab 175mg IVP given x1 LR 1 liter x2 Understands need to quarantine for five days then strict mask wearing for 5 days. may use acetaminophen 1000mg po every 6 hours prn - no more than 4000mg in 24 hours Ordered: bebtelovimab, 175 mg, IV Push, Once, Start date: 11/10/21 15:59:00 AKDT, Stop date: 11/10/21 15:59:00 AKDT, Special Instruction: Administer over at least 30 seconds, 11/10/21 15:59:00 AKDT diphenhydrAMINE, 25 mg, Oral, Cap, Once, Start date: 11/10/21 17:51:00 AKDT, Stop date: 11/10/21 17:51:00 AKDT, 11/10/21 17:51:00 AKDT diphenhydrAMINE, = 1 cap(s), Oral, q6hr, PRN: Nausea/Vomiting (NPO), *Dispensed in [place]*, # 15 cap(s), 0 Refill(s), Start: 11/10/21 18:23:00 AKDT, Pharmacy: [facility], Prescription Type: [facility] Dispense, SARS-CoV-2 positive Nause... Lactated Ringers Solution, 175 mL, IV, Once, Stop date: 11/10/21 15:59:00 AKDT metoclopramide, 10 mg, Oral, Tab, Once, Start date: 11/10/21 17:21:00 AKDT, Stop date: 11/10/21 17:21:00 AKDT, 11/10/21 17:21:00 AKDT metoclopramide, 10 mg, IV Push, Soln-Inj, Once, Start date: 11/10/21 17:23:00 AKDT, Stop date: 11/10/21 17:23:00 AKDT, 11/10/21 17:23:00 AKDT Charge - Bebtelovimab 175 mg/2 mL IVP Charge - Metoclopramide 5 mg [id number] Office Visit Est 40-54 Min Urinalysis with Reflex Microscopic 2. NST today showing good heart rate variabilities and no contractions. JACQUES 12.67 with good heart activity and no pockets less than 1cm Ordered: Office Visit Est 40-54 Min 3. Nausea Ondansetron 4mg ODT given x1-nausea relieved Given pre pack of diphenhydramine 25mg po #15 given one to two tablets every six hours for nausea or headache. Ordered: acetaminophen, 325 mg, Oral, Tab, Once, Start date: 11/10/21 16:13:00 AKDT, Stop date: 11/10/21 16:13:00 AKDT, 11/10/21 16:13:00 AKDT diphenhydrAMINE, = 1 cap(s), Oral, q6hr, PRN: Nausea/Vomiting (NPO), *[place]*, # 15 cap(s), 0 Refill(s), Start: 11/10/21 18:23:00 AKDT, Pharmacy: [facility], Prescription Type: [facility] Dispense, SARS-CoV-2 positive Nause... Lactated Ringers Solution, 1,000 mL, IV, Soln-IV, Once, Stop date: 11/10/21 16:13:00 AKDT ondansetron, 4 mg, Oral, Tab-Dis, Once, Start date: 11/10/21 16:13:00 AKDT, Stop date: 11/10/21 16:13:00 AKDT, 11/10/21 16:13:00 AKDT Charge - Ondansetron Oral Dissolving 4 mg Tab [id number] Charge - Tylenol 325mg [id number] Office Visit Est 40-54 Min 4. Febrile Had taken acetaminophen 650mg prior to coming to the clinic. Given another 325mg po on arrival. Afebrile upon d/c Ordered: acetaminophen, 325 mg, Oral, Tab, Once, Start date: 11/10/21 16:13:00 AKDT, Stop date: 11/10/21 16:13:00 AKDT, 11/10/21 16:13:00 AKDT Lactated Ringers Solution, 1,000 mL, IV, Soln-IV, Once, Stop date: 11/10/21 16:13:00 AKDT ondansetron, 4 mg, Oral, Tab-Dis, Once, Start date: 11/10/21 16:13:00 AKDT, Stop date: 11/10/21 16:13:00 AKDT, 11/10/21 16:13:00 AKDT Charge - Ondansetron Oral Dissolving 4 mg Tab [id number] Charge - Tylenol 325mg [id number] Office Visit Est 40-54 Min 5. Headache Headache not improved with acetaminophen Per UTD Given metoclopramide 10mg IV and diphenhydramine 25mg po [place] significantly better with headache resolved after meds and IVFs. UA obtained with no protein in the urine noted. Ordered: Office Visit Est 40-54 Min Orders: COVID-19 (In-House) Rapid Plan face to face follow up in 1 week or RTC/call sooner if health status worsens or concerns develop. Time In 1530 Time Out 1630 Prolonged visit Time was spent performing the following activities on the [...] PCR (In-House) 04/19/21 * COVID-19 PCR (In-House) 11/15/21 * COVID-19 PCR (In-House) 11/22/21 * COVID-19 PCR (In-House) 02/07/21 * COVID-19 PCR (In-House) 02/14/21 * COVID-19 PCR (In-House) 08/02/21 Immunizations Given and Recorded Vaccine Date Status Refusal Reason diphtheria/pertussis, acel/tetanus adult 1 09/12/21 Given SARS-CoV-2(C-19) mRNA (12y+ purple)-PFZ 12/23/20 G iven SARS-CoV-2(C-19) mRNA (12y+ purple)-PFZ 04/01/20 Bucky hernandez SARS-CoV-2(C-19) mRNA (12y+ purple)-PFZ 2 03/11/20 Given [...] 2Result Comment: will get 2nd dose in [place],her hometown, via [facility] - in 3 weeks (04/01/20) 3Result Comment: 2020-02-15: EMPLOYEE HEALTH, RISK & BENEFITS DISCUSSED Medications acetaminophen 325 mg oral tablet 325 mg, Oral, Tab, Once, Start date: 11/10/21 16:13:00 AKDT, Stop date: 11/10/21 16:13:00 AKDT, 11/10/21 16:13:00 AKDT Start Date: 11/10/21 Stop Date: 11/10/21 Status: Completed famotidine 10 mg oral tablet = 1 tab(s), Oral, BID, # 60 tab(s), 1 Refill(s), Start: 10/11/21 13:59:00 AKDT, Pharmacy: [facility], Prescription Type: Internal Family Counselor, 178, cm, 10/11/21 13:31:00 AKDT, Height/Length Dosing, 92.9, kg, 10/11/21 13:31:00 AKDT... Start Date: 10/11/21 Status: Ordered hydrOXYzine hydrochloride 10 mg oral tablet = 1 tab(s), Oral, QID, PRN: anxiety, # 30 tab(s), 0 Refill(s), Start: 07/11/21 11:25:00 AKDT, Pharmacy: [facility], Prescription Type: Internal Family Counselor, Anxiety disorder, 178, cm, 06/21/21 16:51:00 AKDT, Height/Length Dosing,... Start Date: 07/11/21 Status: Ordered Multivitamins 1, Oral, Daily, 0 Refill(s), Start: 01/24/21 14:03:00 AKDT, Prescription Type: Internal Family Counselor Start Date: 01/24/21 Status: Ordered Vitamin B6 50 mg oral tablet = 1 tab(s), Oral, TID, PRN: Nausea, Take with doxylamine, # 180 tab(s), 0 Refill(s), Start: 04/24/21 8:55:00 AKST, Pharmacy: [facility], Prescription Type: Internal Family Counselor, 178, cm, 03/03/21 11:20:00 AKST, Height/Length Dosing... Start Date: 04/24/21 Status: Ordered Vitamin D3 25 mcg, Oral, Daily, 0 Refill(s), Start: 01/24/21 14:03:00 AKDT, Prescription Type: Internal Family Counselor Start Date: 01/24/21 Status: Ordered VPP diphenhydrAMINE 25 mg oral capsule = 1 cap(s), Oral, q6hr, PRN: Nausea/Vomiting (NPO), *[place]*, # 15 cap(s), 0 Refill(s), Start: 11/10/21 18:23:00 AKDT, Pharmacy: [facility], Prescription Type: [facility] Dispense, SARS-CoV-2 positive Nause... Start Date: 11/10/21 Status: Ordered ZyrTEC Daily, 0 Refill(s), Start: 09/12/21 15:07:00 AKDT, Prescription Type: Internal Family Counselor Start Date: 09/12/21 Status: Ordered Problem List Condition Effective Dates Status Health Status Inform ant Anxiety disorder(Confirmed) Active COVID(Confirmed) Active AMA (advanced maternal age) primigravida 35+(Confirmed) Active Exercise-induced asthma(Confirmed) Active Maternal family history of dementia(Confirmed) Active Family history of malignant melanoma of skin(Confirmed) Active Febrile(Confirmed) Active Headache(Confirmed) Active Nausea(Confirmed) Active 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/21 Active (Confirmed) Active Diagnosis Diagnosis Type Effective Dates Health Status Clini veronique Service Informant Nausea Discharge Diagnosis 11/10/21 Febrile Discharge Diagnosis 11/10/21 Discharge Diagnosis 11/10/21 Headache Discharge Diagnosis 11/10/21 COVID Discharge Diagnosis 11/10/21 Results Laboratory List Name Date Urinalysis with Reflex Microscopic Most recent to oldest [Reference Range]: 1 Specific [place] [1.005-1.030] 1.010 (11/10/21 5:21 PM) pH - Urine [5-8] 7.0 (11/10/21 5:21 PM) Leukocytes Esterase [NEGATIVE-NEGATIVE] Negative (11/10/21 5:21 PM) Nitrites [NEGATIVE-NEGATIVE] Negative (11/10/21 5:21 PM) Protein [NEGATIVE-NEGATIVE mg/dL] Negati ve mg/dL (11/10/21 5:21 PM) Ketones [NEGATIVE-NEGATIVE mg/dL] Negati ve mg/dL (11/10/21 5:21 PM) Urobilinogen [0.2-1.0 EU/dL] 0.2 E.U./dL EU/dL (11/10/21 5:21 PM) Bilirubin [NEGATIVE-NEGATIVE] Negative (11/10/21 5:21 PM) Blood [NEGATIVE-NEGATIVE] Negative (11/10/21 5:21 PM) Microscopic NO (11/10/21 5:21 PM) COLOR - Urine [YELLOW] Yellow (11/10/21 5:21 PM) Glucose UA [NEGATIVE-NEGATIVE mg/dL] Neg ative mg/dL (11/10/21 5:21 PM) Urine Appearance [CLEAR] Clear (11/10/21 5:21 PM) Urine Source Clean Catch (11/10/21 5:21 PM) Vital Signs Most recent to oldest [Reference Range]: 1 2 3 Temperature Oral [96.4-99.1 DegF] 99.7 DegF *HI* (11/10/21 6:00 PM) 100.6 DegF *HI* (11/10/21 4:14 PM) 100.6 DegF *HI* (11/10/21 4:00 PM) Peripheral Pulse Rate [60-100 bpm] 103 bpm *HI* (11/10/21 6:00 PM) 108 bpm *HI* (11/10/21 5:30 PM) 119 bpm *HI* (11/10/21 4:15 PM) Respiratory Rate [14-20 br/min] 25 br/min *HI* (11/10/21 4:15 PM) 22 br/min *HI* (11/10/21 4:00 PM) 18 br/min (11/10/21 3:45 PM) Blood Pressure [90-140/60-90 mmHg] 115/79mmHg (11/10/21 6:00 PM) 110/72mmHg (11/10/21 5:30 PM) 132/78mmHg (11/10/21 4:15 PM) Mean Arterial Pressure, Cuff [59-90 mmHg] 91 mmHg *HI* (11/10/21 6:00 PM) 85 mmHg (11/10/21 5:30 PM) 96 mmHg *HI* (11/10/21 4:15 PM) SpO2 100 % (11/10/21 6:00 PM) 100 % (11/10/21 5:30 PM) 100 % (11/10/21 4:15 PM) Oxygen Therapy Room air (11/10/21 4:15 PM) Social History Social History Type Response Tobacco Tobacco Use: Denies tobacco use. 1 Sex Female 1in past >3yr pt would spoke only at parties socially, from [id number] Primary Care Provider Note * Tammy Cho, INDUSTRIAL PSYCHOLOGY TEACHER, DNP: PERFORM Event Display: Primary Care Provider Note Authored Date: Chief Complaint COVID History of Present Illness Ms. Heredia is a 35 yo female who is 36 weeks 4 days gestation who is . BUTCH 12/04/2021. Initially scheduled today for NST and JACQUES, but notes that she tested positive today for COVID and is not feeling well. Began with a slight tickle in her throat and this morning has had nausea, headache, body aches, and fever up to 103. Attempting to stay hydrated. States she has not vomited, but does not feelwell enough to push fluids or eat anything. ?? COVID vaccine Pfizer 2 vaccines and one booster??last dose 12/23/2020 Review of Systems see HPI Physical Exam Vitals & Measurements T:??99.7?F ??(Oral)?? HR:??103??(Peripheral)?? RR:??25?? BP:??115/79?? SpO2:??100%?? GEN: Well developed well nourished??. Patient appears alert and oriented, in no apparent distress. HEENT: Normocephalic, atraumatic. NECK: Symmetrical and Supple without lymphadenopathy or masses. RESP: Lungs clear to auscultation bilaterally. Good air movement and chest expansion. HEART: Regular rate. Capillary refill <2 seconds. Radial pulses +2 bilaterally. ABD:FHR 135-140 EXT: No clubbing, cyanosis or pedal edema. NEURO: No focal deficits noted.?? Equal strength and coordination noted bilaterally. Able to get on and off exam table without assistance. PSYCH: Normal mood and affect. Good eye contact and engages easily. Reliable historian. ?? Assessment/Plan 1.??COVID COVID positive Symptom day #2 Criteria for treatment 36 weeks 4 days ?? 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 ?? Bebtelovimab 175mg IVP given x1 LR 1 liter x2 ?? Understands need to quarantine for five days then strict mask wearing for 5 days. ?? may use acetaminophen 1000mg po every 6 hours prn - no more than 4000mg in 24 hours Ordered: bebtelovimab, 175 mg, IV Push, Once, Start date: 11/10/21 15:59:00 AKDT, Stop date: 11/10/21 15:59:00 AKDT, Special Instruction: Administer over at least 30 seconds, 11/10/21 15:59:00 AKDT diphenhydrAMINE, 25 mg, Oral, Cap, Once, Start date: 11/10/21 17:51:00 AKDT, Stop date: 11/10/21 17:51:00 AKDT, 11/10/21 17:51:00 AKDT diphenhydrAMINE, = 1 cap(s), Oral, q6hr, PRN: Nausea/Vomiting (NPO), *[place]*, # 15 cap(s), 0 Refill(s), Start: 11/10/21 18:23:00 AKDT, Pharmacy: [facility], Prescription Type: [facility] Dispense, SARS-CoV-2 positive Nause... Lactated Ringers Solution, 175 mL, IV, Once, Stop date: 11/10/21 15:59:00 AKDT metoclopramide, 10 mg, Oral, Tab, Once, Start date: 11/10/21 17:21:00 AKDT, Stop date: 11/10/21 17:21:00 AKDT, 11/10/21 17:21:00 AKDT metoclopramide, 10 mg, IV Push, Soln-Inj, Once, Start date: 11/10/21 17:23:00 AKDT, Stop date: 11/10/21 17:23:00 AKDT, 11/10/21 17:23:00 AKDT Charge - Bebtelovimab 175 mg/2 mL IVP Charge - Metoclopramide 5 mg [id number] Office Visit Est 40-54 Min Urinalysis with Reflex Microscopic ?? 2.?? NST today showing good heart rate variabilities and no contractions. JACQUES 12.67 with good heart activity and no pockets less than 1cm Ordered: Office Visit Est 40-54 Min ?? 3.??Nausea Ondansetron 4mg ODT given x1-nausea relieved ?? Given pre pack of diphenhydramine 25mg po #15 given one to two??tablets every six hours for nausea or headache. Ordered: acetaminophen, 325 mg, Oral, Tab, Once, Start date: 11/10/21 16:13:00 AKDT, Stop date: 11/10/21 16:13:00 AKDT, 11/10/21 16:13:00 AKDT diphenhydrAMINE, = 1 cap(s), Oral, q6hr, PRN: Nausea/Vomiting (NPO), *[place]pensed in [place]*, # 15 cap(s), 0 Refill(s), Start: 11/10/21 18:23:00 AKDT, Pharmacy: [facility], Prescription Type: [facility] Dispense, SARS-CoV-2 positive Nause... Lactated Ringers Solution, 1,000 mL, IV, Soln-IV, Once, Stop date: 11/10/21 16:13:00 AKDT ondansetron, 4 mg, Oral, Tab-Dis, Once, Start date: 11/10/21 16:13:00 AKDT, Stop date: 11/10/21 16:13:00 AKDT, 11/10/21 16:13:00 AKDT Charge - Ondansetron Oral Dissolving 4 mg Tab [id number] Charge - Tylenol 325mg [id number] Office Visit Est 40-54 Min ?? 4.??Febrile Had taken acetaminophen 650mg prior to coming to the clinic. Given another 325mg po on arrival. Afebrile upon d/c Ordered: acetaminophen, 325 mg, Oral, Tab, Once, Start date: 11/10/21 16:13:00 AKDT, Stop date: 11/10/21 16:13:00 AKDT, 11/10/21 16:13:00 AKDT Lactated Ringers Solution, 1,000 mL, IV, Soln-IV, Once, Stop date: 11/10/21 16:13:00 AKDT ondansetron, 4 mg, Oral, Tab-Dis, Once, Start date: 11/10/21 16:13:00 AKDT, Stop date: 11/10/21 16:13:00 AKDT, 11/10/21 16:13:00 AKDT Charge - Ondansetron Oral Dissolving 4 mg Tab [id number] Charge - Tylenol 325mg [id number] Office Visit Est 40-54 Min ?? 5.??Headache Headache not improved with acetaminophen Per UTD Given metoclopramide 10mg IV and diphenhydramine 25mg po [place] significantly better with headache resolved after meds and IVFs. ?? UA obtained with no protein in the urine noted. Ordered: Office Visit Est 40-54 Min ?? Orders: COVID-19 (In-House) Rapid Plan face to face follow up in 1 week or??RTC/call sooner if health status worsens or concerns develop. ?? Time In 1530 Time Out 1630 ?? Prolonged visit ?? Time was??spent performing the following activities on the day of service:?? reviewing the patient's medical record, obtaining and/or reviewing separately obtained history, performing a medically appropriate history and examination, counseling and educating the patient/family/caregiver, orderingprescription medications/tests/procedures, referring and communicating with other health care providers during visit, documenting clinical information in the electronic health record, independently interpreting results, communicating results to the patient/family/caregiver, and/or coordinating the care of the patient.? Lab Results Test Name Test Result Date/TimeCOLOR - Urine Yellow 11/10/2021 17:21 AKDT Urine Appearance Clear 11/10/2021 17:21 AKDT Urine Source Clean Catch 11/10/2021 17:21 AKDT Specific [place] 1.010 11/10/2021 17:21 AKDT pH - Urine 7.0 11/10/2021 17:21 AKDT Leukocytes Esterase Negative 11/10/2021 17:21 AKDT Nitrites Negative 11/10/2021 17:21 AKDT Protein Negative 11/10/2021 17:21 AKDT Glucose UA Negative 11/10/2021 17:21 AKDT Ketones Negative 11/10/2021 17:21 AKDT Urobilinogen 0.2 E.U./dL 11/10/2021 17:21 AKDT Bilirubin Negative 11/10/2021 17:21 AKDT Blood Negative 11/10/2021 17:21 AKDT Medications famotidine 10 mg oral tablet, 10 mg= 1 tab(s), Oral, BID, 1 refills hydrOXYzine hydrochloride 10 mg oral tablet, 10 mg= 1 tab(s), Oral, QID, PRN Multivitamins, 1, Oral, Daily Vitamin B6 50 mg oral tablet, 50 mg= 1 tab(s), Oral, TID, PRN Vitamin D3, 25 mcg, Oral, Daily VPP diphenhydrAMINE 25 mg oral capsule, 25 mg= 1 cap(s), Oral, q6hr, PRN ZyrTEC, Daily Allergies NKA Problem List/Past Medical History Ongoing AMA (advanced maternal age) primigravida 35+ Anxiety disorder Circumvallate placenta COVID Exercise-induced asthma Family history of malignant melanoma of skin Febrile Headache Maternal family history of dementia Nausea Historical Dysuria Social History Alcohol Denies alcohol use, not drinking due to , 06/21/2021 Current, Beer, Wine, Liquor, 1-2 times per week, Household alcohol concerns: No., 02/15/2020 Substance Abuse Denies substance abuse, 02/15/2020 Tobacco Tobacco Use: Denies tobacco use., 02/15/2020 Health Maintenance Health Maintenance ?Pending??(in the next year) ?OverDue ?SCR - Cervical Cancer Screening - Age 21-65 PAP every 3 Yrs OR Age 30-65 PAP/HPV every5 Yrs due?11/06/19?and every 3?yr ?SCR - Alcohol Abuse Screening due?02/14/21?and every 1?yr ?SCR - Domestic Violence Screening due?02/14/21?and every 1?yr ?Due?COU - Abnormal Weight Counseling due?11/10/21?and every 1?yr ?IMM - Hepatitis B Vaccine Dose 1 due?11/10/21?One-time only ?Due In Future?IMM - Influenza Vaccine - Age 9 + not due until?11/23/21?and every 1?yr ?DEN - Dental Exam not due until?09/13/22?and every 1?yr ?SCR - Depression Screening not due until?10/27/22?and every 1?yr ?Satisfied??(in the past 1 year) ?Satisfied?DEN - Dental Exam on?09/13/21.?Satisfied by Janet Sandoval?Reason: ExpectationSatisfied Elsewhere ?IMM - Tetanus Vaccine - Age 19+ (Verify that Tdap has been given after age 11yrs. ??Ifnot give Tdap instead) on?09/12/21.?Satisfied by Irasema Morel RN ?SCR - Depression Screening on?08/05/22.?Satisfied by Adina Hernandes, RN ?SCR - HIV Screening on?01/07/21.?Satisfied by UNKNOWN, PERSONNEL ?SCR - Hepatitis C Screening on?01/07/21.?Satisfied by UNKNOWN, PERSONNEL ?? PJ Tate, DNP Care Team Care Team Personnel Name: Mikayla James MD Position: Rural Provider ([facility]) Member Role: Primary Care Provider Address: Address: [address] [address]- Care Team Related Persons Name: EARNEST HEREDIA Address: [facility] Name: EARNEST HEREDIA Address: Home [address] [place] [address] Name: MANJEET ARIAS Address: [address] [address] Address: Home [address] [place] [id number] Address: Mailing [address] [place] [phone]
--- OUTSIDE RECORDS SUMMARY | 2024-03-19 15:30 | XMS_ITS | Continuity of Care Document ---
Author Organization [facility] Address [address] [place] [id number] Care Team Providers Care Orthodontist Small Business Owner Name Role Phone Mikayla James Primary Care Physician Encounter Date(s): 09/20/21 - 09/20/21 [facility] [place] [facility] [address] [facility] [place] [id number] Discharge Disposition: Discharge Attending Physician: Mikayla James MD Referring Physician: Mikayla James MD Allergies, Adverse Reactions, Alerts No Known Allergies Assessment and Plan Diagnostic Tests Pending * COVID-19 PCR (In-House) 09/20/21 Future Scheduled Tests Laboratory* ALT 04/07/21 * [...] COVID-19 PCR (In-House) 08/02/21 Radiology* US OB Follow Up 10/04/21 Immunizations Given and Recorded Vaccine Date Status [...] 2Result Comment: will get 2nd dose in [place],her hometown, via [facility] - in 3 weeks (04/01/20) 3Result Comment: 2020-02-15: EMPLOYEE HEALTH, RISK & BENEFITS DISCUSSED Medications doxylamine 25 mg oral tablet = 0.5 tab(s), Oral, TID, PRN: for nausea, take with pyridoxine (vitamin B6), # 30 tab(s), 1 Refill(s), Start: 07/13/21 9:16:00 ELIANA, Pharmacy: [facility], Prescription Type: Internal Insurance Specialist, 178, cm, 06/21/21 16:51:00 ELIANA, H... Start Date: 07/13/21 Status: Ordered hydrOXYzine hydrochloride 10 mg oral tablet = 1 tab(s), Oral, QID, PRN: anxiety, # 30 tab(s), 0 Refill(s), Start: 07/11/21 11:25:00 ELIANA, Pharmacy: [facility], Prescription Type: Internal Insurance Specialist, Anxiety disorder, 178, cm, 06/21/21 16:51:00 AKDT, Height/Length Dosing,... Start Date: 07/11/21 Status: Ordered Multivitamins 1, Oral, Daily, 0 Refill(s), Start: 01/24/21 14:03:00 AKDT, Prescription Type: Internal Insurance Specialist Start Date: 01/24/21 Status: Ordered Vitamin B6 50 mg oral tablet = 1 tab(s), Oral, TID, PRN: Nausea, Take with doxylamine, # 180 tab(s), 0 Refill(s), Start: 04/24/21 8:55:00 AKST, Pharmacy: [facility], Prescription Type: Internal Insurance Specialist, 178, cm, 03/03/21 11:20:00 AKST, Height/Length Dosing... Start Date: 04/24/21 Status: Ordered Vitamin D3 25 mcg, Oral, Daily, 0 Refill(s), Start: 01/24/21 14:03:00 AKDT, Prescription Type: Internal Insurance Specialist Start Date: 01/24/21 Status: Ordered ZyrTEC Daily, 0 Refill(s), Start: 09/12/21 15:07:00 AKDT, Prescription Type: Internal Insurance Specialist Start Date: 09/12/21 Status: Ordered Problem List [...] would spoke only at parties socially, from [id number] Care Team Personnel Name: Mikayla James MD Address: Address: [address], [place] [address]
--- OUTSIDE RECORDS SUMMARY | 2024-03-19 15:30 | XMS_ITS | Continuity of Care Document ---
Author Organization [facility] Address [address] [place] [address] Care Team Providers Care Allergist/Immunologist Name Role Phone Mikayla James Primary Care Physician Encounter Date(s): 10/04/21 - 10/04/21 [facility] [place] [facility] [address] [facility] [address] Discharge Disposition: Discharge Attending Physician: Mikayla James MD Referring Physician: Mikayla James MD Allergies, Adverse Reactions, Alerts No Known Allergies Assessment and Plan Diagnostic Tests Pending * COVID-19 PCR (In-House) 10/04/21 Future Scheduled Tests Laboratory* ALT 04/07/21 * [...] 2Result Comment: will get 2nd dose in [place], via [facility] - in 3 weeks (04/01/20) 3Result Comment: 2020-02-15: EMPLOYEE HEALTH, RISK & BENEFITS DISCUSSED Medications doxylamine 25 mg oral tablet = 0.5 tab(s), Oral, TID, PRN: for nausea, take with pyridoxine (vitamin B6), # 30 tab(s), 1 Refill(s), Start: 07/13/21 9:16:00 ELIANA, Pharmacy: [facility], Prescription Type: Internal Instrumentation And Controls Designer, 178, cm, 06/21/21 16:51:00 ELIANA, H... Start Date: 07/13/21 Status: Ordered hydrOXYzine hydrochloride 10 mg oral tablet = 1 tab(s), Oral, QID, PRN: anxiety, # 30 tab(s), 0 Refill(s), Start: 07/11/21 11:25:00 AKDT, Pharmacy: [facility], Prescription Type: Internal Instrumentation And Controls Designer, Anxiety disorder, 178, cm, 06/21/21 16:51:00 AKDT, Height/Length Dosing,... Start Date: 07/11/21 Status: Ordered Multivitamins 1, Oral, Daily, 0 Refill(s), Start: 01/24/21 14:03:00 AKDT, Prescription Type: Internal Instrumentation And Controls Designer Start Date: 01/24/21 Status: Ordered Vitamin B6 50 mg oral tablet = 1 tab(s), Oral, TID, PRN: Nausea, Take with doxylamine, # 180 tab(s), 0 Refill(s), Start: 04/24/21 8:55:00 AKST, Pharmacy: [facility], Prescription Type: Internal Instrumentation And Controls Designer, 178, cm, 03/03/21 11:20:00 AKST, Height/Length Dosing... Start Date: 04/24/21 Status: Ordered Vitamin D3 25 mcg, Oral, Daily, 0 Refill(s), Start: 01/24/21 14:03:00 AKDT, Prescription Type: Internal Instrumentation And Controls Designer Start Date: 01/24/21 Status: Ordered ZyrTEC Daily, 0 Refill(s), Start: 09/12/21 15:07:00 AKDT, Prescription Type: Internal Instrumentation And Controls Designer Start Date: 09/12/21 Status: Ordered Problem List [...] would spoke only at parties socially, from [id number] Care Team Personnel Name: Mikayla James MD Address: Address: [address] [place] [address]- [place]
--- OUTSIDE RECORDS SUMMARY | 2024-03-19 15:30 | XMS_ITS | Continuity of Care Document ---
Author Organization [facility] Address [address] [place] [address] Care Team Providers Care Qc Manager Name Role Phone Mikayla James Primary Care Physician [phone] Encounter Date(s): 08/16/21 - 08/16/21 [facility] [place] [facility] [address] [facility] [place] [address] Discharge Disposition: Discharge Attending Physician: Mikayla James MD Referring Physician: Mikayla James MD Allergies, Adverse Reactions, Alerts No Known Allergies Assessment and Plan Diagnostic Tests Pending * COVID-19 PCR (In-House) 08/16/21 Future Scheduled Tests Laboratory* ALT 04/07/21 * [...] PCR (In-House) 01/18/21 * COVID-19 PCR (In-House) 08/23/21 * COVID-19 PCR (In-House) 08/30/21 * COVID-19 PCR (In-House) 09/06/21 * COVID-19 PCR (In-House) 09/13/21 * COVID-19 PCR (In-House) 09/20/21 * COVID-19 PCR (In-House) 06/14/21 * COVID-19 PCR (In-House) 04/12/21 * COVID-19 PCR (In-House) 04/19/21 * COVID-19 PCR (In-House) 02/07/21 * COVID-19 PCR (In-House) 02/14/21 * COVID-19 PCR (In-House) 08/02/21 Immunizations Given and Recorded Vaccine Date Status Refusal Reason SARS-CoV-2(C-19) mRNA (12y+ purple)-PFZ 12/23/20 G iven SARS-CoV-2(C-19) mRNA (12y+ purple)-PFZ 04/01/20 G iven SARS-CoV-2(C-19) mRNA (12y+ purple)-PFZ 1 03/11/20 Given influenza vaccine quadrivalent PF >36mo 2 01/12/20 Recorded influenza virus vaccine quadrivalent, in 12/25/18 Recorded influenza virus vaccine quadrivalent, in 01/06/18 Recorded influenza virus vaccine quadrivalent, in 02/04/17 Recorded influenza virus vaccine quadrivalent, in 01/02/16 Recorded influenza virus vaccine quadrivalent, in 01/31/15 Recorded tetanus/diphtheria/pertussis, acel(Tdap) 08/01/15 Recorded 1Result Comment: will get 2nd dose in [place],her hometown, via [facility] - in 3 weeks (04/01/20) 2Result Comment: 2020-02-15: EMPLOYEE HEALTH, RISK & BENEFITS DISCUSSED Medications doxylamine 25 mg oral tablet = 0.5 tab(s), Oral, TID, PRN: for nausea, take with pyridoxine (vitamin B6), # 30 tab(s), 1 Refill(s), Start: 07/13/21 9:16:00 ELIANA, Pharmacy: [facility], Prescription Type: Internal Energy Trading Analyst, 178, cm, 06/21/21 16:51:00 ELIANA H... Start Date: 07/13/21 Status: Ordered hydrOXYzine hydrochloride 10 mg oral tablet = 1 tab(s), Oral, QID, PRN: anxiety, # 30 tab(s), 0 Refill(s), Start: 07/11/21 11:25:00 AKDT, Pharmacy: [facility], Prescription Type: Internal Energy Trading Analyst, Anxiety disorder, 178, cm, 06/21/21 16:51:00 AKDT, Height/Length Dosing,... Start Date: 07/11/21 Status: Ordered Multivitamins 1, Oral, Daily, 0 Refill(s), Start: 01/24/21 14:03:00 AKDT, Prescription Type: Internal Energy Trading Analyst Start Date: 01/24/21 Status: Ordered Vitamin B6 50 mg oral tablet = 1 tab(s), Oral, TID, PRN: Nausea, Take with doxylamine, # 180 tab(s), 0 Refill(s), Start: 04/24/21 8:55:00 AKST, Pharmacy: [facility], Prescription Type: Internal Energy Trading Analyst, 178, cm, 03/03/21 11:20:00 AKST, Height/Length Dosing... Start Date: 04/24/21 Status: Ordered Vitamin D3 25 mcg, Oral, Daily, 0 Refill(s), Start: 01/24/21 14:03:00 AKDT, Prescription Type: Internal Energy Trading Analyst Start Date: 01/24/21 Status: Ordered Problem List [...] would spoke only at parties socially, from [id number]
--- OUTSIDE RECORDS SUMMARY | 2024-03-19 15:30 | XMS_ITS | Continuity of Care Document ---
Author Organization [facility] Address [address] [facility] [place] [address] Care Team Providers Care Manager Organizational Name Role Phone Mikayla James Primary Care Physician [phone] Encounter Date(s): 09/13/21 - 09/13/21 [facility] [place] [facility] [address] [facility] [place] [address] Discharge Disposition: Discharge Attending Physician: Mikayla James MD Referring Physician: Mikayla James MD Allergies, Adverse Reactions, Alerts No Known Allergies Assessment and Plan Diagnostic Tests Pending * COVID-19 PCR (In-House) 09/13/21 Future Scheduled Tests Laboratory* ALT 04/07/21 * [...] PCR (In-House) 01/18/21 * COVID-19 PCR (In-House) 09/20/21 * COVID-19 [...] 2Result Comment: will get 2nd dose in [place], via [facility] - in 3 weeks (04/01/20) 3Result Comment: 2020-02-15: EMPLOYEE HEALTH, RISK & BENEFITS DISCUSSED Medications doxylamine 25 mg oral tablet = 0.5 tab(s), Oral, TID, PRN: for nausea, take with pyridoxine (vitamin B6), # 30 tab(s), 1 Refill(s), Start: 07/13/21 9:16:00 ELIANA, Pharmacy: [facility], Prescription Type: Internal Foster Care Case Manager, 178, cm, 06/21/21 16:51:00 ELIANA, H... Start Date: 07/13/21 Status: Ordered hydrOXYzine hydrochloride 10 mg oral tablet = 1 tab(s), Oral, QID, PRN: anxiety, # 30 tab(s), 0 Refill(s), Start: 07/11/21 11:25:00 AKDT, Pharmacy: [facility], Prescription Type: Internal Foster Care Case Manager, Anxiety disorder, 178, cm, 06/21/21 16:51:00 AKDT, Height/Length Dosing,... Start Date: 07/11/21 Status: Ordered Multivitamins 1, Oral, Daily, 0 Refill(s), Start: 01/24/21 14:03:00 AKDT, Prescription Type: Internal Foster Care Case Manager Start Date: 01/24/21 Status: Ordered Vitamin B6 50 mg oral tablet = 1 tab(s), Oral, TID, PRN: Nausea, Take with doxylamine, # 180 tab(s), 0 Refill(s), Start: 04/24/21 8:55:00 AKST, Pharmacy: [facility], Prescription Type: Internal Foster Care Case Manager, 178, cm, 03/03/21 11:20:00 AKST, Height/Length Dosing... Start Date: 04/24/21 Status: Ordered Vitamin D3 25 mcg, Oral, Daily, 0 Refill(s), Start: 01/24/21 14:03:00 AKDT, Prescription Type: Internal Foster Care Case Manager Start Date: 01/24/21 Status: Ordered ZyrTEC Daily, 0 Refill(s), Start: 09/12/21 15:07:00 AKDT, Prescription Type: Internal Foster Care Case Manager Start Date: 09/12/21 Status: Ordered Problem List [...] would spoke only at parties socially, from [phone] Care Team Personnel Name: Mikayla James MD Address: Address: [address], [place] [address]
--- OUTSIDE RECORDS SUMMARY | 2024-03-19 15:30 | XMS_ITS | Continuity of Care Document ---
Author Organization [facility] Address [address] [place] [id number] Care Team Providers Care Motor Expert Name Role Phone Mikayla James Primary Care Physician Encounter Date(s): 03/10/24 - 03/10/24 [facility] [address] [place] [address] [place] [phone] Encounter Diagnosis (Discharge Diagnosis) - 03/10/24 Discharge Disposition: Discharge Attending Physician: Mikayla James MD Allergies, Adverse Reactions, Alerts No Known Allergies Assessment and Plan Extracted from: Title:[facility] Return Pre Visit Note Author:Mikayla James MD Date:03/10/24 38 y/o at 21w 1d per LM P c/w first trimester US, BUTCH 07/20/24 Father _: Jair Doty s Doctor: ALEX Aneuploidy screening: low risk Carrier screening: discussed labs: GC/C: neg Syphilis 04/27 trim: [_] Pap: 02/13 NILM Influenza vaccine: UTD Tdap: 28w RSV: 32-36w RhoGam: n/a Gestational diabetes screen: [_] GBS: [_] Term Packet: [_] : _ yes Contraception: [ considering_] Delivery Location: [[place]] ULTRASOUND: 12/25/23: Single IUP at 10w 3d, BUTCH 07/20/23 02/27/24: EFW 63%, anterior placenta, inadequate cardiac and digit visualization #AMA: low risk NIPT, consider antepartum monitoring prior to transfer #h/o exercise induced asthma #h/o circumvallate placenta: normal placenta per recent anatomy scan #h/o anxiety, now off sertraline 1. Second trimester precautions reviewed. F/u q4 weekly until 32 weeks, then q2 weekly. 24-28 week labs ordered. F/u anatomy US ordered. Covid vaccine today. Ordered: Referral Orders: SARS-CoV-2 (COVID-19) mRNA-LNP vaccine (cvx 312), 0.5 mL, IM, Once, Stop date: 03/10/24 13:55:00 AKST Charge - COVID-19 20-29 minutes were spent performing the following [...] of the patient. Future Scheduled Tests Laboratory* RPR, Quant 04/12/24 * CBC w/ Auto Diff 04/12/24 * POC Urinalysis 11/18/23 * 2HR Glucose Tolerance (GTT) 04/12/24 Radiology* US OB Follow Up 03/02/24 * US Lower Extremity Limited Non-Vascular Right 02/25/24 Immunizations Given and Recorded Vaccine Date Status Refusal Reason SARS-CoV-2 (COVID-19) mRNA-LNP (cvx 312) 03/10/24 Given diphtheria/pertussis, acel/tetanus adult 1 09/12/21 Given SARS-CoV-2(C-19) mRNA (12y+ purple)-PFZ 12/23/20 G iven SARS-CoV-2(C-19) mRNA (12y+ purple)-PFZ 04/01/20 G iven SARS-CoV-2(C-19) mRNA (12y+ purple)-PFZ 2 03/11/20 Given influenza vaccine quadrivalent PF 3 01/12/20 Recor ded influenza virus vaccine quadrivalent, in 12/25/18 Recorded influenza virus vaccine quadrivalent, in 01/06/18 Recorded influenza virus vaccine quadrivalent, in 02/04/17 Recorded influenza virus vaccine quadrivalent, in 01/02/16 Recorded influenza virus vaccine quadrivalent, in 01/31/15 Recorded tetanus/diphtheria/pertussis, acel(Tdap) 5/9/16 Recorded 1Early/Late Reason: Early/Late Reason: Nursing Judgment 2Result Comment: will get 2nd dose in [place], via [facility] - in 3 weeks (04/01/20) 3Result Comment: 2020-02-15: EMPLOYEE HEALTH, RISK & BENEFITS DISCUSSED Medications albuterol 90 mcg/inh inhalation aerosol = 2 puff(s), INH, q6hr, PRN PRN Wheezing or Shortness of Breath, # 1 EA, 0 Refill(s), Start: 02/13/24 10:15:00 AM AKST, Pharmacy: [facility], Prescription Type: Internal PickUp, Exercise-induced asthma, 178, cm, 01/01/24 9:56:00 AKDT, Height/Length Dosing, 90.72, kg, 02/13/24 9:04:00 AKST, Weight Dosing Start Date: 02/13/24 Status: Ordered Multivitamins 1, Oral, Daily, 0 Refill(s), Start: 01/24/21 2:03:00 PM AKDT, Prescription Type: Internal Food Production Supervisor Start Date: 01/24/21 Status: Ordered Senna-docusate 8.6 mg-50 mg oral tablet = 1 tab(s), Oral, Once a day (at bedtime), PRN PRN Constipation, # 12 tab(s), 0 Refill(s), Start: 01/01/24 11:51:00 AM AKDT, Pharmacy: [facility], Prescription Type: Internal Food Production Supervisor, Nausea and vomiting in , 178, cm, 01/01/24 9:56:00 AKDT, Height/Length Dosing, 85.7, kg, 11/18/23 16:08:00 AKDT, Weight Dosing Start Date: 01/01/24 Status: Ordered SPACER CHAMBER SPACER CHAMBER, See Instructions, Attach to inhaler and use for each dose for improved medication delivery to lungs, # 1 EA, 0 Refill(s), Pharmacy: [facility], Prescription Type: External Prescription, 178, cm, 01/01/24 9:56:00 AKDT, Height/Length Dosing, 90.72, kg, 02/13/24 9:04:00 AKST, Weight Dosing Start Date: 02/13/24 Status: Ordered spacer, chamber See Instructions, use with inhaler, # 1 EA, 0 Refill(s), Start: 02/13/24 9:32:00 AM AKST, Prescription Type: Internal Food Production Supervisor, Exercise-induced asthma Start Date: 02/13/24 Status: Ordered Vitamin D3 25 mcg, Oral, Daily, 0 Refill(s), Start: 01/24/21 2:03:00 PM AKDT, Prescription Type: Internal Food Production Supervisor Start Date: 01/24/21 Status: Ordered Zofran ODT 4 mg oral tablet, disintegrating 1 - 2 tab(s), Oral, TID, PRN: nausea and vomiting, # 30 tab(s), 1 Refill(s), Start: 02/13/24 9:39:00 AM AKST, Pharmacy: [facility], Prescription Type: Internal Food Production Supervisor, Nausea Positive test, 178, cm, 01/01/24 9:56:00 AKDT, Height/Length Dosing, 90.72, kg, 02/13/24 9:04:00 AKST, Weight Dosing Start Date: 02/13/24 Status: Ordered Problem List Condition Confirmation Course Effective Dates Status H ealth Status Informant Anxiety disorder Confirmed Active AMA (advanced maternal age) primigravida 35+ Confirmed Active Exercise-induced asthma Confirmed Active Maternal family history of dementia Confirmed Active Family history of malignant melanoma of skin Confirmed Active Nausea and vomiting in Confirmed Active 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 Rt groin pain Confirmed Active Diagnosis Diagnosis Type Effective Dates Health Status Clini veronique Service Informant Discharge Diagnosis 03/10/24 Vital Signs Most recent to oldest [Reference Range]: 1 Temperature Oral [96.4-99.1 DegF] 98.1 D egF (03/10/24 1:33 PM) Peripheral Pulse Rate [60-100 bpm] 88 bp m (03/10/24 1:33 PM) Respiratory Rate [14-20 br/min] 18 br/mi n (03/10/24 1:33 PM) Blood Pressure [90-140/60-90 mmHg] 113/7 7mmHg (03/10/24 1:33 PM) SpO2 97 % (03/10/24 1:33 PM) Height/Length Measured 178 cm (03/10/24 1:33 PM) Weight Measured 94 kg (03/10/24 1:33 PM) Weight Dosing 94 kg (03/10/24 1:33 PM) Body Mass Index Measured 29.67 kg/m2 (03/10/24 1:33 PM) Social History Social History Type Response Tobacco Tobacco Use: Denies tobacco use. 1 Sex Female 1in past >3yr pt would spoke only at parties socially, from [id number] OB Documentation-Provider * Mikayla James MD: PERFORM Event Display: OB Documentation-Provider Authored Date: [id number] Chief Complaint 21 1/ week gestation Para Information: ??:??2 ??Para Term:??1 ??Para :??0 ??Para Abortions:??0 ??Para Living:??1 BUTCH/EGA Gestational Age (EGA) and BUTCH? * Note: EGA calculated as of 03/10/2024 ?? BUTCH:??07/20/2024?EGA*:??21 weeks 1 day ?Type:??Authoritative?MethodDate:??10/14/2023 ?Method:??Last Menstrual Period??(10/14/2023) ?Confirmation:??Confirmed ?Description:??-- ?Comments:??-- ?Entered by:??Teresa Brooks RN on 11/20/2023? Other BUTCH Calculations for this : ?Method:??Ultrasound ?Method Date:??12/25/2023 ?BUTCH:??07/19/2024 ?EGA (At Entry):??10 weeks 3 days ?Type:??Non-Authoritative ?Comments:??-- ?Entered by:??Teresa Brooks RN on 12/29/2023 Subjective Visit Date:??03/10/2024 11:59:02 Provider:??Mikayla James MD Gestational Age:?? 21w 1d Comments:?? Reports continued nausea, worse at night.??Also struggling with constipation.?? Has trialed increased fruits/veg in diet, increased hydration, movement all of which helps.?? Has yet to trial bulking agent due to nausea.?? Still using docusate prn.?? Also notes some round ligament discomfort with standing that relieves with movement.?? Good movement.? Visit Date: 02/13/24 Provider: Deb Cho NP Gestational Age 17w 3d Comments: Reports nausea improving and not occurring every day still using ondansetron prn.??Notingsome lower abd cramping not associated with activity or full bladder, maybe associated with constipation as does improve with passing flatus. Had similar events with previous . Right groin pain resolved- feels maybe related to previous constipation. Has upcoming u/s scheduled to evaluate for hernia. States has had three URIs the past several months and has lingering cough. Requesting refill of inhaler prn if??needed.? Visit Date:??01/14/2024 09:27:01 Provider:??Mikayla James MD Gestational Age:?? 13w 1d Comments:?? Dyoln presents with continued persistent nausea/anorexia and occasional vomiting.?? Thinks it may be getting better (had period of time yesterday morning where she felt good).?? Notes symptoms better in the morning, worse in the evening.?? Feels like she is chronically dehydrated; has tried to drink both hot and cold liquids but struggles with both.?? Notes urine is often concentrated.?? Does not vomit every day but feels nauseous and fatigued most of the time.?? Currently taking Zofran during the days (usually 4mg BID) and Benadryl at night.?Notes??self d/c of all meds including PNVs since??around 8 weeks.?? Just got ??gummies and is trying to take those.?? Notes co nstipation as well.?? Had mostly normal BM yesterday but prior to that went 4 days.?? Docusate makes her stomach feel upset.?? Has h/o circumvallate placenta and notes concerns for possible recurrence.?? Also notes some R groin discomfort with cough/sneezing, some movements.?? This was present during her first but not apparent after she delivered. ?? Visit Date: 01/01/2024?? Provider:??Deb Cho NP Gestataional??Age: 11w 2d Comments:??ongoing nausea that has not been controlled with ondansetron, vitamin B6, and Benadryl.??Has been struggling with n/v since beginning of . She reports that while her vomiting is not constant, she has not vomited since Saturday. However, she remains extremely nauseous, consuming only sips of water and a small amount of food. She has been unable to keep her vitamins down for the past few days to weeks. Additionally, she is struggling with constipation and is unsure if this is related to the ondansetron.??She also reports left ear pain and sinus fullness. Her and 2-year-old son have also been ill. She conducted a home COVID-19 test, which returned negative res ults. ?? Visit??Date 12/09/23 Provider:??Vidal James?? Gestational Age: 8w0d?? Comments:?A0 at??with complicated by AMA??presenting to clinic this morning reporting??persistent??nausea and intermittent??emesis.??Patient notes??waxing and waning intense nausea??with occasional episode of emesis??and associated anorexia??that is persistent over the past 7 days at a level??that is more intense than my last .?? No report of subjective fevers, chills, myalgias,??headache, photophobia, neck stiffness, chest pain/pressure, discernible palpitations,??SOA/FAY,??hematemesis,??localized abdominal??cramping/pain, wo rsening constipation in the context of daily??docusate use,??known sick contacts, associated condition taste aversion, or known adverse effect from her current??doxylamine??and pyridoxine??regimen.??Patient notes that she would be amenable??to IVF??and a trial of antihistamine therapy??this afternoon.??NKDA confirmed. ? Visit Date??12/04/23- telephone call Provider: Erika,??Vidal ALICIA Gestational Age: Comments:?Called and spoke with Dylon.?? Having severe related nausea without vomiting, feeling essentially like she needs to throw up at all times.?? Able to keep relatively hydrated.?? Is using behavioral interventions such as small meals, crackers by the bedside, etc. 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 She??has also tried??oral Zofran, but feels that this does not work as well.?? Reports she has read the??up-to-date and a cog guidance on??the use of Zofran in ??and understands??the rationale behind using it??on an as-needed basis.?? Currently she is using 1-2??tabs of Zofran daily, but feels like they are not working??as well as the ODT's did.?? Reviewed risks/benefits and alternative options.?? New prescription wrote for Zofran??ODT.?? Dosing discussed, recommended??4-8mg Zofran ODT??up to 3 times daily as needed. ?? Visit Date 11/18/23 Provider: Erika,?Ari ALICIA Gestational Age: Comments:??Dylon presents for confirmation.?? Reports she is only a few weeks ; LMP 10/14/23.?? Feeling well overall.?? Went a week without her SSRI and really noticed the difference.?? Wishes to continue with SSRI during ; has researched risks.?? Does note that she feels her anxiety is not optimally controlled and wonders if she might actually have ADHD.?? Has been reading a lot about the diagnosis online and feels like the sensation of internal agitation/irritabilitymight actually be ADHD.?? Filled out ADHD self report scale together; see Ad Hoc form.?? Also notes light brown lesion on her leg which has been there a while and is not changing.?? She notes family history of melanoma in both of her parents.? Objective Vitals & Measurements T:??98.1?F ??(Oral)?? HR:??88??(Peripheral)?? RR:??18?? BP:??113/77?? SpO2:??97%?? HT:??178??cm?? WT:??94??kg?? BMI:??29.67?? Visits Assessment EGA, per Visit: 21W 1D (03/10/24) Weight Measured: 94 kg (03/10/24) Systolic Blood Pressure: 113 mmHg (03/10/24) Diastolic Blood Pressure: 77 (03/10/24) Labor Signs/Symptoms: None (03/10/24) Next Appointment: 4 week(s) (03/10/24) Baby A - Heart Tones: 145 bpm (03/10/24) Assessment/Plan 38 y/o at 21w 1d per LMP c/w first trimester US, BUTCH 07/20/24 ?? Father???_: Jair Baby???s Doctor: TBD Aneuploidy screening: low risk Carrier screening:??discussed labs:?? GC/C: neg Syphilis 04/27 trim:??[_] Pap: 02/13 NILM Influenza vaccine: UTD Tdap: 28w RSV:??32-36w RhoGam: n/a Gestational diabetes screen: [_] GBS: [_] Term Packet: [_] :?_??yes Contraception:??[ considering_] Delivery Location:??[[place]_] ?? ULTRASOUND: 12/25/23:?? Single IUP at 10w 3d, BUTCH 07/20/23 02/27/24:?? EFW 63%, anterior placenta, inadequate cardiac and digit visualization ?? #AMA:?? low risk NIPT, consider antepartum monitoring prior to transfer?? #h/o exercise induced asthma #h/o circumvallate placenta:?? normal placenta per recent anatomy scan #h/o anxiety, now off sertraline ?? 1.?? Second trimester precautions reviewed.?? F/u q4 weekly until 32 weeks, then q2 weekly. 24-28 week labs ordered. F/u anatomy US ordered. Covid vaccine today. Ordered: Referral ?? Orders: SARS-CoV-2 (COVID-19) mRNA-LNP vaccine (cvx 312), 0.5 mL, IM, Once, Stop date: 03/10/24 13:55:00 MACIEL Charge - COVID-19 20-29 minutes were spent performing the following activities on the day of service:?? reviewing thepatient's medical record, obtaining and/or reviewing separately obtained history, performing a medically appropriate history and examination, counseling and educating the patient/family/caregiver, ordering prescription medications/tests/procedures, referring and communicating with other health careproviders during visit, documenting clinical information in the electronic health record, independently interpreting results, communicating results to the patient/family/caregiver, and/or coordinating the care of the patient.? Medications albuterol 90 mcg/inh inhalation aerosol, 2 puff(s), INH, q6hr, PRN Multivitamins, 1, Oral, Daily Senna-docusate 8.6 mg-50 mg oral tablet, 1 tab(s), Oral, Once a day (at bedtime), PRN SPACER CHAMBER, See Instructions spacer, chamber, See Instructions Vitamin D3, 25 mcg, Oral, Daily Zofran ODT 4 mg oral tablet, disintegrating, 1 - 2 tab(s), Oral, TID, PRN, 1 refills Allergies NKA Mikayla James MD Patient Care team information Care Team Personnel Name: Mikayla James MD Position: Rural Provider ([facility]) Member Role: Primary Care Provider Address: Address: [address] [address]- Care Team Related Persons Name: EARNEST HEREDIA Address: Home [place] Name: EARNEST HEREDIA Address: Home [address] [place] [address] Name: MANJEET ARIAS Address: [address] [address] Address: Home [address] [place] [id number] Address: Mailing [address] [place] [id number]
--- OUTSIDE RECORDS SUMMARY | 2024-03-19 15:30 | XMS_ITS | Continuity of Care Document ---
Author Organization [facility] Address [address] [place] [address] Care Team Providers Care Community Life Director Name Role Phone Mikayla James Primary Care Physician Encounter Date(s): 07/05/21 - 07/05/21 [facility] [address] [place] [address] Discharge Disposition: Discharge Attending Physician: Mikayla James MD Referring Physician: Mikayla James MD Allergies, Adverse Reactions, Alerts No Known Allergies Assessment and Plan Diagnostic Tests Pending * COVID-19 PCR (In-House) 07/05/21 Future Scheduled Tests Laboratory* ALT 04/07/21 * [...] PCR (In-House) 01/18/21 * COVID-19 PCR (In-House) 07/12/21 * COVID-19 [...] 1Result Comment: will get 2nd dose in [place], via [facility] - in 3 weeks (04/01/20) 2Result Comment: 2020-02-15: EMPLOYEE HEALTH, RISK & BENEFITS DISCUSSED Medications doxylamine 25 mg oral tablet = 0.5 tab(s), Oral, TID, PRN: for nausea, take with pyridoxine (vitamin B6), # 30 tab(s), 1 Refill(s), Start: 06/07/21 14:49:00 AKDT, Pharmacy: [facility], Prescription Type:Internal Manufacturing Industrial Engineer, 178, cm, 03/03/21 11:20:00 AKST,... Start Date: 06/07/21 Status: Ordered Multivitamins 1, Oral, Daily, 0 Refill(s), Start: 01/24/21 14:03:00 AKDT, Prescription Type: Internal Manufacturing Industrial Engineer Start Date: 01/24/21 Status: Ordered Vitamin B6 50 mg oral tablet = 1 tab(s), Oral, TID, PRN: Nausea, Take with doxylamine, # 180 tab(s), 0 Refill(s), Start: 04/24/21 8:55:00 AKST, Pharmacy: [facility], Prescription Type: Internal Manufacturing Industrial Engineer, 178, cm, 03/03/21 11:20:00 AKST, Height/Length Dosing... Start Date: 04/24/21 Status: Ordered Vitamin D3 25 mcg, Oral, Daily, 0 Refill(s), Start: 01/24/21 14:03:00 AKDT, Prescription Type: Internal Manufacturing Industrial Engineer Start Date: 01/24/21 Status: Ordered Problem List [...] would spoke only at parties socially, from [id number]
--- OUTSIDE RECORDS SUMMARY | 2024-03-19 15:30 | XMS_ITS | Continuity of Care Document ---
Author Organization [facility] Address [address] [place] [address], [place] [address] Care Team Providers Care Tab Machine Operator Name Role Phone Mikayla James Primary Care Physician Encounter Date(s): 12/26/23 - 12/26/23 [facility] [address] [place] [address] Discharge Disposition: Discharge Attending Physician: Mikayla James MD Allergies, Adverse Reactions, Alerts No Known Allergies Assessment and Plan Diagnostic Tests Pending * [id number] Plus Core ESS SCA - No Sex 12/26/23 * Hemoglobin A1c 12/26/23 * Glucose Random 12/26/23 * Rubella Antibody IgG 12/26/23 * Hepatitis B Surface Antigen 12/26/23 * Hepatitis C Antibody 12/26/23 * HIV 1/2 Ag/Ab Combo 12/26/23 * RPR, Quant 12/26/23 * Vitamin D 25 OH, Total 12/26/23 Future Scheduled Tests Laboratory* Urine Culture 11/18/23 * CT/NG (Swab/Urine/PAP) 11/18/23 * POC Urinalysis 11/18/23 Immunizations Given and Recorded Vaccine Date Status Refusal Reason diphtheria/pertussis, acel/tetanus adult 1 09/12/21 Given SARS-CoV-2(C-19) mRNA (12y+ purple)-PFZ 12/23/20 G iven SARS-CoV-2(C-19) mRNA (12y+ purple)-PFZ 04/01/20 G iven SARS-CoV-2(C-19) mRNA (12y+ purple)-PFZ 2 03/11/20 Given influenza vaccine quadrivalent PF 3 10/20/20 Recor ded influenza virus vaccine quadrivalent, in 12/25/18 Recorded influenza virus vaccine quadrivalent, in 01/06/18 Recorded influenza virus vaccine quadrivalent, in 02/04/17 Recorded influenza virus vaccine quadrivalent, in 01/02/16 Recorded influenza virus vaccine quadrivalent, in 01/31/15 Recorded tetanus/diphtheria/pertussis, acel(Tdap) 08/01/15 Recorded 1Early/Late Reason: Early/Late Reason: Nursing Judgment 2Result Comment: will get 2nd dose in [place],her hometown, via [facility] - in 3 weeks (04/01/20) 3Result Comment: 2020-02-15: EMPLOYEE HEALTH, RISK & BENEFITS DISCUSSED Medications diphenhydrAMINE 25 mg oral capsule = 1 cap(s), Oral, q6hr, PRN: Nausea/Vomiting (NPO), Take 1-2 tablets every 6 hours., # 100 cap(s), 0 Refill(s), Start: 12/09/23 10:00:00 AM AKDT, Pharmacy: [facility], Prescription Type: Internal Business Analytics Intern, Nausea and vomiting in , 178, cm, 12/09/23 8:51:00 AKDT, Height/Length Dosing, 85.7, kg, 11/18/23 16:08:00 AKDT, Weight Dosing Start Date: 12/09/23 Status: Ordered doxylamine 25 mg oral tablet = 0.5 tab(s), Oral, TID, PRN: for nausea, take with pyridoxine (vitamin B6), # 45 tab(s), 0 Refill(s), Start: 11/29/23 9:52:00 AM AKDT, Stop: 12/29/23 8:00:00 AM AKDT, Pharmacy: [facility], Prescription Type: Internal Business Analytics Intern, Positive test Nausea, 178, cm, 11/18/23 16:08:00 AKDT, Height/Length Dosing, 85.7, kg, 11/18/23 16:08:00 AKDT, Weight Dosing Start Date: 11/29/23 Stop Date: 12/29/23 Status: Ordered Multivitamins 1, Oral, Daily, 0 Refill(s), Start: 01/24/21 2:03:00 PM AKDT, Prescription Type: Internal Business Analytics Intern Start Date: 01/24/21 Status: Ordered pyridoxine 50 mg oral tablet = 1 tab(s), Oral, TID, PRN: Nausea, Take with doxylamine, # 90 tab(s), 0 Refill(s), Start: 11/29/23 9:52:00 AM AKDT, Stop: 12/29/23 8:00:00 AM AKDT, Pharmacy: [facility], Prescription Type: Internal Business Analytics Intern, Positive test Nausea, 178, cm, 11/18/23 16:08:00 AKDT, Hei ght/Length Dosing, 85.7, kg, 11/18/23 16:08:00 AKDT, Weight Dosing Start Date: 11/29/23 Stop Date: 12/29/23 Status: Ordered sertraline 25 mg oral tablet = 1 tab(s), Oral, Daily, # 90 tab(s), 4 Refill(s), Start: 05/30/23 12:56:00 PM AKST, Pharmacy: [facility], Prescription Type: Internal Business Analytics Intern, 178, cm, 09/17/22 13:29:00 AKDT,Height/Length Dosing, 87, kg, 09/17/22 13:29:00 AKDT, Weight Dosing Start Date: 05/30/23 Status: Ordered Vitamin D3 25 mcg, Oral, Daily, 0 Refill(s), Start: 01/24/21 2:03:00 PM AKDT, Prescription Type: Internal Business Analytics Intern Start Date: 01/24/21 Status: Ordered Zofran 4 mg oral tablet = 1 tab(s), Oral, TID, PRN for nausea, # 30 tab(s), 0 Refill(s), Start: 11/29/23 10:02:00 AM AKDT, Stop: 12/29/23 8:00:00 AM AKDT, Pharmacy: [facility], Prescription Type: Internal Business Analytics Intern, Positive test Nausea, 178, cm, 11/18/23 16:08:00 AKDT, Height/Length Dosing, 85.7, kg, 11/18/23 16:08:00 AKDT, Weight Dosing Start Date: 11/29/23 Stop Date: 12/29/23 Status: Ordered Zofran ODT 4 mg oral tablet, disintegrating 1 - 2 tab(s), Oral, TID, PRN: nausea and vomiting, # 30 tab(s), 1 Refill(s), Start: 12/04/23 3:00:00PM AKDT, Stop: 12/03/24 8:00:00 AM AKDT, Pharmacy: [facility], PrescriptionType: Internal Business Analytics Intern, Nausea Positive test, 178, cm, 11/18/23 16:08:00 AKDT, Height/Length Dosing, 85.7, kg, 11/18/23 16:08:00 AKDT, Weight Dosing Start Date: 12/04/23 Stop Date: 12/03/24 Status: Ordered Problem List Condition Confirmation Course Effective Dates Status H ealth Status Informant Anxiety disorder Confirmed Active AMA (advanced maternal age) primigravida 35+ Confirmed Active Exercise-induced asthma Confirmed Active Maternal family history of dementia Confirmed Active Family history of malignant melanoma of skin Confirmed Active Nausea and vomiting in Confirmed Active 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 Results Laboratory List Name Date CBC w/ Auto Diff 12/26/23 Most recent to oldest [Reference Range]: 1 WBC [4.0-12.0 K/uL] 9.0 K/uL (12/26/23 7:34 AM) RBC [3.43-5.21 M/uL] 4.39 M/uL (12/26/23 7:34 AM) HGB [10.3-14.8 gm/dL] 14.0 gm/dL (12/26/23 7:34 AM) HCT [32.5-46.2 %] 39.3 % (12/26/23 7:34 AM) MCV [82.5-98.0 fL] 89.5 fL (12/26/23 7:34 AM) MCH [26.1-32.9 pg] 31.9 pg (12/26/23 7:34 AM) MCHC [30.7-34.9 gm/dL] 35.6 gm/dL *HI* (12/26/23 7:34 AM) RDW [11.8-16.4 %] 12.4 % (12/26/23 7:34 AM) MPV [7.9-13.1 fL] 9.1 fL (12/26/23 7:34 AM) Platelet Count [136.0-388.0 K/uL] 337.0 K/uL (12/26/23 7:34 AM) Neutrophils, Percentage: [49.1-76.9 %] 6 7.4 % (12/26/23 7:34 AM) Lymphocytes, Percentage: [13.9-44.4 %] 2 4.8 % (12/26/23 7:34 AM) Absolute Neutrophils: [2.4-7.5 K/uL] 6.1 K/uL (12/26/23 7:34 AM) Absolute Lymphocytes: [1.0-3.4 K/uL] 2.2 K/uL (12/26/23 7:34 AM) Mixed Cells % [4.7-13.3 %] 7.8 % (12/26/23 7:34 AM) Mixed Cells Absolute [0.3-1.1 K/uL] 0.7 K/uL (12/26/23 7:34 AM) Social History Social History Type Response Tobacco Tobacco Use: Denies tobacco use. 1 Sex Female 1in past >3yr pt would spoke only at parties socially, from [phone] Patient Care team information Care Team Personnel Name: Mikayla James MD Position: Rural Provider ([facility]) Member Role: Primary Care Provider Address: Address: [address] [address]- Care Team Related Persons Name: EARNEST HEREDIA Address: [facility] Name: EARNEST HEREDIA Address: Home [address] [place] [address] Name: MANJEET ARIAS Address: [address] [address] Address: Home [address] [place] [address] Address: Mailing [address] [facility] [address]
--- OUTSIDE RECORDS SUMMARY | 2024-03-19 15:30 | XMS_ITS | Continuity of Care Document ---
Author Organization [facility] Address [address] [place] [address] Care Team Providers Care Business English Instructor Name Role Phone Mikayla James Primary Care Physician Encounter Date(s): 10/11/21 - 10/11/21 [facility] [place] Out[facility] [address] [facility] [place] [address] Discharge Disposition: Discharge Attending Physician: Mikayla James MD Referring Physician: Mikayla James MD Allergies, Adverse Reactions, Alerts No Known Allergies Assessment and Plan Diagnostic Tests Pending * COVID-19 PCR (In-House) 10/11/21 Future Scheduled Tests Laboratory* ALT 04/07/21 * ALT 07/06/21 * CBC w/ Auto Diff 09/14/21 * Hepatitis C Antibody 04/07/21 * Hepatitis C Antibody 07/06/21 * Urinalysis Macroscopic 02/15/21 * Urinalysis Microscopic 02/15/21 * HIV 1/2 Ag/Ab Combo 02/18/21 * HIV 1/2 Ag/Ab Combo 04/07/21 * HIV 1/2 Ag/Ab Combo 07/06/21 * COVID-19 PCR (In-House) 10/18/21 * COVID-19 [...] 2Result Comment: will get 2nd dose in [place] hometown, via [facility] - in 3 weeks (04/01/20) 3Result Comment: 2020-02-15: EMPLOYEE HEALTH, RISK & BENEFITS DISCUSSED Medications famotidine 10 mg oral tablet = 1 tab(s), Oral, BID, # 60 tab(s), 1 Refill(s), Start: 10/11/21 13:59:00 AKDT, Pharmacy: [facility], Prescription Type: Internal Investor Relations Manager, 178, cm, 10/11/21 13:31:00 AKDT, Height/Length Dosing, 92.9, kg, 10/11/21 13:31:00 AKDT... Start Date: 10/11/21 Status: Ordered hydrOXYzine hydrochloride 10 mg oral tablet = 1 tab(s), Oral, QID, PRN: anxiety, # 30 tab(s), 0 Refill(s), Start: 07/11/21 11:25:00 AKDT, Pharmacy: [facility], Prescription Type: Internal Investor Relations Manager, Anxiety disorder, 178, cm, 06/21/21 16:51:00 AKDT, Height/Length Dosing,... Start Date: 07/11/21 Status: Ordered Multivitamins 1, Oral, Daily, 0 Refill(s), Start: 01/24/21 14:03:00 AKDT, Prescription Type: Internal Investor Relations Manager Start Date: 01/24/21 Status: Ordered Vitamin B6 50 mg oral tablet = 1 tab(s), Oral, TID, PRN: Nausea, Take with doxylamine, # 180 tab(s), 0 Refill(s), Start: 04/24/21 8:55:00 AKST, Pharmacy: [facility], Prescription Type: Internal Investor Relations Manager, 178, cm, 03/03/21 11:20:00 AKST, Height/Length Dosing... Start Date: 04/24/21 Status: Ordered Vitamin D3 25 mcg, Oral, Daily, 0 Refill(s), Start: 01/24/21 14:03:00 AKDT, Prescription Type: Internal Investor Relations Manager Start Date: 01/24/21 Status: Ordered ZyrTEC Daily, 0 Refill(s), Start: 09/12/21 15:07:00 AKDT, Prescription Type: Internal Investor Relations Manager Start Date: 09/12/21 Status: Ordered Problem [...] would spoke only at parties socially, from [id number] Care Team Personnel Name: Mikayla James MD Address: Address: [address], [place] [address]
--- OUTSIDE RECORDS SUMMARY | 2024-03-19 15:30 | XMS_ITS | Continuity of Care Document ---
Author Organization [facility] Address [address] [place] [address] Care Team Providers Care Wood Molder Name Role Phone Mikayla James Primary Care Physician [phone] Encounter Date(s): 07/26/21 - 07/26/21 [facility] [place] [facility] [address] [facility] [place] [address] Discharge Disposition: Discharge Attending Physician: Mikayla James MD Referring Physician: Mikayla James MD Allergies, Adverse Reactions, Alerts No Known Allergies Assessment and Plan Diagnostic Tests Pending * COVID-19 PCR (In-House) 07/26/21 Future Scheduled Tests Laboratory* ALT 04/07/21 * ALT 07/06/21 * CBC w/ Auto Diff 07/11/21 * Hepatitis C Antibody 04/07/21 * Hepatitis C Antibody 07/06/21 * Urinalysis Macroscopic 02/15/21 * Urinalysis Microscopic 02/15/21 * HIV 1/2 Ag/Ab Combo 02/18/21 * HIV 1/2 Ag/Ab Combo 04/07/21 * HIV 1/2 Ag/Ab Combo 07/06/21 * 2HR Glucose Tolerance (GTT) 07/11/21 * COVID-19 08/10/20 * COVID-19 PCR (In-House) 03/08/21 * COVID-19 PCR (In-House) 03/15/21 * COVID-19 PCR (In-House) 01/11/21 * COVID-19 PCR (In-House) 01/18/21 * COVID-19 PCR (In-House) 06/14/21 * COVID-19 PCR (In-House) 04/12/21 * COVID-19 PCR (In-House) 04/19/21 * COVID-19 PCR (In-House) 02/07/21 * COVID-19 PCR (In-House) 02/14/21 * COVID-19 PCR (In-House) 08/02/21 * COVID-19 PCR (In-House) 08/09/21 * COVID-19 PCR (In-House) 08/16/21 Radiology* US OB Follow Up 08/09/21 Immunizations Given and Recorded Vaccine Date Status [...] 1Result Comment: will get 2nd dose in [place], via [facility] - in 3 weeks (04/01/20) 2Result Comment: 2020-02-15: EMPLOYEE HEALTH, RISK & BENEFITS DISCUSSED Medications doxylamine 25 mg oral tablet = 0.5 tab(s), Oral, TID, PRN: for nausea, take with pyridoxine (vitamin B6), # 30 tab(s), 1 Refill(s), Start: 07/13/21 9:16:00 ELIANA, Pharmacy: [facility], Prescription Type: Internal Candy Bar Attendant, 178, cm, 06/21/21 16:51:00 ELIANA H... Start Date: 07/13/21 Status: Ordered hydrOXYzine hydrochloride 10 mg oral tablet = 1 tab(s), Oral, QID, PRN: anxiety, # 30 tab(s), 0 Refill(s), Start: 07/11/21 11:25:00 AKDT, Pharmacy: [facility], Prescription Type: Internal Candy Bar Attendant, Anxiety disorder, 178, cm, 06/21/21 16:51:00 AKDT, Height/Length Dosing,... Start Date: 07/11/21 Status: Ordered Multivitamins 1, Oral, Daily, 0 Refill(s), Start: 01/24/21 14:03:00 AKDT, Prescription Type: Internal Candy Bar Attendant Start Date: 01/24/21 Status: Ordered Vitamin B6 50 mg oral tablet = 1 tab(s), Oral, TID, PRN: Nausea, Take with doxylamine, # 180 tab(s), 0 Refill(s), Start: 04/24/21 8:55:00 AKST, Pharmacy: [facility], Prescription Type: Internal Candy Bar Attendant, 178, cm, 03/03/21 11:20:00 AKST, Height/Length Dosing... Start Date: 04/24/21 Status: Ordered Vitamin D3 25 mcg, Oral, Daily, 0 Refill(s), Start: 01/24/21 14:03:00 AKDT, Prescription Type: Internal Candy Bar Attendant Start Date: 01/24/21 Status: Ordered Problem List [...] would spoke only at parties socially, from [phone]
--- OUTSIDE RECORDS SUMMARY | 2024-03-19 15:30 | XMS_ITS | Continuity of Care Document ---
Author Organization [facility] Address [address] [place] [address], [place] [address] Care Team Providers Care Bridge Engineer Name Role Phone Mikayla James Primary Care Physician Encounter Date(s): 12/25/23 - 12/25/23 [facility] [address] [facility] [place] [address] [place] [phone] Discharge Disposition: Discharge Attending Physician: Mikayla James MD Allergies, Adverse Reactions, Alerts No Known Allergies Assessment and Plan Future Scheduled Tests Laboratory* RPR, Quant 11/18/23 * Glucose Random 11/18/23 * CBC w/ Auto Diff 11/18/23 * Hemoglobin A1c 11/18/23 * Hepatitis B Surface Antigen 11/18/23 * Hepatitis C Antibody 11/18/23 * Urine Culture 11/18/23 * Vitamin D 25 OH, Total 11/18/23 * HIV 1/2 Ag/Ab Combo 11/18/23 * CT/NG (Swab/Urine/PAP) 11/18/23 * POC Urinalysis 11/18/23 * Rubella Antibody IgG 11/18/23 * Type and Screen 11/18/23 * [id number] Plus Core ESS SCA - No Sex 12/19/23 Immunizations Given and Recorded Vaccine Date Status [...] 2Result Comment: will get 2nd dose in [place] hometown, via [facility] - in 3 weeks (04/01/20) 3Result Comment: 2020-02-15: EMPLOYEE HEALTH, RISK & BENEFITS DISCUSSED Medications diphenhydrAMINE 25 mg oral capsule = 1 cap(s), Oral, q6hr, PRN: Nausea/Vomiting (NPO), Take 1-2 tablets every 6 hours., # 100 cap(s), 0 Refill(s), Start: 12/09/23 10:00:00 AM AKDT, Pharmacy: [facility], Prescription Type: Internal Health Educator, Nausea and vomiting in , 178, cm, 12/09/23 8:51:00 AKDT, Height/Length Dosing, 85.7, kg, 11/18/23 16:08:00 AKDT, Weight Dosing Start Date: 12/09/23 Status: Ordered doxylamine 25 mg oral tablet = 0.5 tab(s), Oral, TID, PRN: for nausea, take with pyridoxine (vitamin B6), # 45 tab(s), 0 Refill(s), Start: 11/29/23 9:52:00 AM AKDT, Stop: 12/29/23 8:00:00 AM AKDT, Pharmacy: [facility], Prescription Type: Internal Health Educator, Positive test Nausea, 178, cm, 11/18/23 16:08:00 AKDT, Height/Length Dosing, 85.7, kg, 11/18/23 16:08:00 AKDT, Weight Dosing Start Date: 11/29/23 Stop Date: 12/29/23 Status: Ordered Multivitamins 1, Oral, Daily, 0 Refill(s), Start: 01/24/21 2:03:00 PM AKDT, Prescription Type: Internal Health Educator Start Date: 01/24/21 Status: Ordered pyridoxine 50 mg oral tablet = 1 tab(s), Oral, TID, PRN: Nausea, Take with doxylamine, # 90 tab(s), 0 Refill(s), Start: 11/29/23 9:52:00 AM AKDT, Stop: 12/29/23 8:00:00 AM AKDT, Pharmacy: [facility], Prescription Type: Internal Health Educator, Positive test Nausea, 178, cm, 11/18/23 16:08:00 AKDT, Hei ght/Length Dosing, 85.7, kg, 11/18/23 16:08:00 AKDT, Weight Dosing Start Date: 11/29/23 Stop Date: 12/29/23 Status: Ordered sertraline 25 mg oral tablet = 1 tab(s), Oral, Daily, # 90 tab(s), 4 Refill(s), Start: 05/30/23 12:56:00 PM AKST, Pharmacy: [facility], Prescription Type: Internal Health Educator, 178, cm, 09/17/22 13:29:00 AKDT,Height/Length Dosing, 87, kg, 09/17/22 13:29:00 AKDT, Weight Dosing Start Date: 05/30/23 Status: Ordered Vitamin D3 25 mcg, Oral, Daily, 0 Refill(s), Start: 01/24/21 2:03:00 PM AKDT, Prescription Type: Internal Health Educator Start Date: 01/24/21 Status: Ordered Zofran 4 mg oral tablet = 1 tab(s), Oral, TID, PRN for nausea, # 30 tab(s), 0 Refill(s), Start: 11/29/23 10:02:00 AM AKDT, Stop: 12/29/23 8:00:00 AM AKDT, Pharmacy: [facility], Prescription Type: Internal Health Educator, Positive test Nausea, 178, cm, 11/18/23 16:08:00 AKDT, Height/Length Dosing, 85.7, kg, 11/18/23 16:08:00 AKDT, Weight Dosing Start Date: 11/29/23 Stop Date: 12/29/23 Status: Ordered Zofran ODT 4 mg oral tablet, disintegrating 1 - 2 tab(s), Oral, TID, PRN: nausea and vomiting, # 30 tab(s), 1 Refill(s), Start: 12/04/23 3:00:00PM AKDT, Stop: 12/03/24 8:00:00 AM AKDT, Pharmacy: [facility], PrescriptionType: Internal Health Educator, Nausea Positive test, 178, cm, 11/18/23 16:08:00 [...] placenta Confirmed Active Confirmed 10/14/23 Active Results Radiology Reports * Exam Date Time Procedure Performing Provider Status 12/25/23 10:40 AM US OB 1st Trimester Single Gestation Natalie Pinon; Yoon (Verified) Notes: (US OB 1st Trimester Single Gestation) Reason For Exam: Dating Report Patient Name: DYLON HEREDIA Patient : 1985 Referring Physician: Mikayla James Exam: US OB 1st Trimester Single Gestation Exam Reason: Dating First trimester OB ultrasound using transabdominal imaging. Comparison: None. Findings: There is a single intrauterine gestational sac noted with a yolk sac measuring 4.0 mm geraldine pole with a crown-rump length 3.46 cm consistent with an 10w3d gestation and an estimated date of delivery of 07/19/2024. heart rate was measured at 163 bpm. The ovaries bilaterally hadnormal appearance with the right ovary measuring 1.0 x 2.2 x 2.2 cm and the left ovary measuring 2.5 x 3.2 x 3.1 cm. There is no free fluid or adnexal masses. Impression: Single intrauterine with an 10w3d gestation and an estimated date of deliveryof 07/19/2024 . Radiologist: Leonora Rodriguez MD Signed: 12/25/2023 11:05 AM Transcribed: 12/25/2023 11:04 AM Leonora Rodriguez MD Final Report Dictated by: Leonora Rodriguez MD Signed by: Leonora Rodriguez MD Signed (Electronic Signature): 12/25/2023 11:05 Transcribed by: RUSLAN Social History Social History Type Response Tobacco Tobacco Use: Denies tobacco use. 1 Sex Female 1in past >3yr pt would spoke only at parties socially, from 8203-3930 Patient Care team information Care Team Personnel Name: Mikayla James MD Position: Rural Provider ([facility]) Member Role: Primary Care Provider Address: Address: [address] [address]- Care Team Related Persons Name: EARNEST HEREDIA Address: Home [place] Name: EARNEST HEREDIA Address: Home [address] [place] [place] [address] Name: MANJEET ARIAS Address: [facility] [address] [place] [address] Address: Home [address] [place] [address] Address: Mailing [address] [address]
--- OUTSIDE RECORDS SUMMARY | 2024-03-19 15:30 | XMS_ITS | Continuity of Care Document ---
Author Organization [facility] Address [address] [place] [address] Care Team Providers Care Atm Servicer Name Role Phone Mikayla James Primary Care Physician Encounter Date(s): 10/18/21 - 11/17/21 [facility] [place] [facility] [address] [facility] [address] [place] [phone] Referring Physician: Mikayla James MD Allergies, Adverse [...] 2Result Comment: will get 2nd dose in [place], via [facility] - in 3 weeks (04/01/20) 3Result Comment: 2020-02-15: EMPLOYEE HEALTH, RISK & BENEFITS DISCUSSED Medications famotidine 10 mg oral tablet = 1 tab(s), Oral, BID, # 60 tab(s), 1 Refill(s), Start: 10/11/21 13:59:00 ELIANA, Pharmacy: [facility], Prescription Type: Internal Tmr Teacher, 178, cm, 10/11/21 13:31:00 AKDT, Height/Length Dosing, 92.9, kg, 10/11/21 13:31:00 AKDT... Start Date: 10/11/21 Status: Ordered hydrOXYzine hydrochloride 10 mg oral tablet = 1 tab(s), Oral, QID, PRN: anxiety, # 30 tab(s), 0 Refill(s), Start: 07/11/21 11:25:00 AKFITO, Pharmacy: [facility], Prescription Type: Internal Tmr Teacher, Anxiety disorder, 178, cm, 06/21/21 16:51:00 AKDT, Height/Length Dosing,... Start Date: 07/11/21 Status: Ordered Multivitamins 1, Oral, Daily, 0 Refill(s), Start: 01/24/21 14:03:00 AKDT, Prescription Type: Internal Tmr Teacher Start Date: 01/24/21 Status: Ordered Vitamin B6 50 mg oral tablet = 1 tab(s), Oral, TID, PRN: Nausea, Take with doxylamine, # 180 tab(s), 0 Refill(s), Start: 04/24/21 8:55:00 AKST, Pharmacy: [facility], Prescription Type: Internal Tmr Teacher, 178, cm, 03/03/21 11:20:00 AKST, Height/Length Dosing... Start Date: 04/24/21 Status: Ordered Vitamin D3 25 mcg, Oral, Daily, 0 Refill(s), Start: 01/24/21 14:03:00 AKDT, Prescription Type: Internal Tmr Teacher Start Date: 01/24/21 Status: Ordered VPP diphenhydrAMINE 25 mg oral capsule = 1 cap(s), Oral, q6hr, PRN: Nausea/Vomiting (NPO), *Dispensed in [place]*, # 15 cap(s), 0 Refill(s), Start: 11/10/21 18:23:00 AKDT, Pharmacy: [facility], Prescription Type: [facility], SARS-CoV-2 positive Nause... Start Date: 11/10/21 Status: Ordered ZyrTEC Daily, 0 Refill(s), Start: 09/12/21 15:07:00 AKDT, Prescription Type: Internal Tmr Teacher Start Date: 09/12/21 Status: Ordered Problem List Condition Effective Dates Status Health Status Inform ant Anxiety disorder(Confirmed) Active AMA (advanced maternal age) primigravida 35+(Confirmed) Active Exercise-induced asthma(Confirmed) Active Maternal family history of dementia(Confirmed) Active Family history of malignant melanoma of skin(Confirmed) Active Febrile(Confirmed) Active Headache(Confirmed) Active Nausea(Confirmed) Active 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/21 Active (Confirmed) Active Social History Social History Type Response Tobacco Tobacco Use: Denies tobacco use. 1 Sex Female 1in past >3yr pt would spoke only at parties socially, from 8870-1476 Care Team Care Team Personnel Name: Mikayla James MD Position: Rural Provider ([facility]) Member Role: Primary Care Provider Address: Address: [address] [address]- Care Team Related Persons Name: EARNEST HEREDIA Address: Home [address] [place] [address] Name: EARNEST HEREDIA Address: [facility] Name: MANJEET ARIAS Address: [address] [address] Address: Home [address] [place] [address] Address: Mailing [address] [facility] [address]
--- OUTSIDE RECORDS SUMMARY | 2024-03-19 15:30 | XMS_ITS | Continuity of Care Document ---
Author Organization [facility] Address [address] [place] [address] Care Team Providers Care Agriculture Engineer Name Role Phone Mikayla James Primary Care Physician [phone] Encounter Date(s): 10/25/21 - 10/25/21 [facility] [address] [facility] [address] Discharge Disposition: Discharge Attending Physician: Mikayla James MD Referring Physician: Mikayla James MD Allergies, Adverse Reactions, Alerts No Known Allergies Assessment and Plan Diagnostic Tests Pending * COVID-19 PCR (In-House) 10/25/21 Future Scheduled Tests Laboratory* ALT 04/07/21 * [...] 2Result Comment: will get 2nd dose in [place] hometown, via [facility] - in 3 weeks (04/01/20) 3Result Comment: 2020-02-15: EMPLOYEE HEALTH, RISK & BENEFITS DISCUSSED Medications famotidine 10 mg oral tablet = 1 tab(s), Oral, BID, # 60 tab(s), 1 Refill(s), Start: 10/11/21 13:59:00 AKFITO, Pharmacy: [facility], Prescription Type: Internal Gymnastics Instructor, 178, cm, 10/11/21 13:31:00 AKDT, Height/Length Dosing, 92.9, kg, 10/11/21 13:31:00 AKDT... Start Date: 10/11/21 Status: Ordered hydrOXYzine hydrochloride 10 mg oral tablet = 1 tab(s), Oral, QID, PRN: anxiety, # 30 tab(s), 0 Refill(s), Start: 07/11/21 11:25:00 AKDT, Pharmacy: [facility], Prescription Type: Internal Gymnastics Instructor, Anxiety disorder, 178, cm, 06/21/21 16:51:00 AKDT, Height/Length Dosing,... Start Date: 07/11/21 Status: Ordered Multivitamins 1, Oral, Daily, 0 Refill(s), Start: 01/24/21 14:03:00 AKDT, Prescription Type: Internal Gymnastics Instructor Start Date: 01/24/21 Status: Ordered Vitamin B6 50 mg oral tablet = 1 tab(s), Oral, TID, PRN: Nausea, Take with doxylamine, # 180 tab(s), 0 Refill(s), Start: 04/24/21 8:55:00 AKST, Pharmacy: [facility], Prescription Type: Internal Gymnastics Instructor, 178, cm, 03/03/21 11:20:00 AKST, Height/Length Dosing... Start Date: 04/24/21 Status: Ordered Vitamin D3 25 mcg, Oral, Daily, 0 Refill(s), Start: 01/24/21 14:03:00 AKDT, Prescription Type: Internal Gymnastics Instructor Start Date: 01/24/21 Status: Ordered ZyrTEC Daily, 0 Refill(s), Start: 09/12/21 15:07:00 AKDT, Prescription Type: Internal Gymnastics Instructor Start Date: 09/12/21 Status: Ordered Problem List [...] would spoke only at parties socially, from [phone] Care Team Care Team Personnel Name: Mikayla James MD Position: Rural Provider ([facility]) Member Role: Primary Care Provider Address: Address: [address] [address]- Care Team Related Persons Name: EARNEST HEREDIA Address: Home [address] [place] [address] Name: EARNEST HEREDIA Address: Home [place] Name: MANJEET ARIAS Address: [address] [address] Address: Home [address] [place] [address] Address: Mailing [address] [place] [id number]
--- OUTSIDE RECORDS SUMMARY | 2024-03-19 15:30 | XMS_ITS | Continuity of Care Document ---
Author Organization [facility] Address [address] [place] [address] Care Team Providers Care Buyer Assistant Name Role Phone Mikayla James Primary Care Physician [phone] Encounter Date(s): 08/23/21 - 08/23/21 [facility] Out[facility] [address] [place] [address] Discharge Disposition: Discharge Attending Physician: Mikayla James MD Referring Physician: Mikayla James MD Allergies, Adverse Reactions, Alerts No Known Allergies Assessment and Plan Diagnostic Tests Pending * COVID-19 PCR (In-House) 08/23/21 Future Scheduled Tests Laboratory* ALT 04/07/21 * [...] PCR (In-House) 01/18/21 * COVID-19 PCR (In-House) 08/30/21 * COVID-19 [...] 1Result Comment: will get 2nd dose in [place] hometown, via [facility] - in 3 weeks (04/01/20) 2Result Comment: 2020-02-15: EMPLOYEE HEALTH, RISK & BENEFITS DISCUSSED Medications doxylamine 25 mg oral tablet = 0.5 tab(s), Oral, TID, PRN: for nausea, take with pyridoxine (vitamin B6), # 30 tab(s), 1 Refill(s), Start: 07/13/21 9:16:00 ELIANA, Pharmacy: [facility], Prescription Type: Internal Fire Equipment Inspector Helper, 178, cm, 06/21/21 16:51:00 ELIANA H... Start Date: 07/13/21 Status: Ordered hydrOXYzine hydrochloride 10 mg oral tablet = 1 tab(s), Oral, QID, PRN: anxiety, # 30 tab(s), 0 Refill(s), Start: 07/11/21 11:25:00 AKDT, Pharmacy: [facility], Prescription Type: Internal Fire Equipment Inspector Helper, Anxiety disorder, 178, cm, 06/21/21 16:51:00 AKDT, Height/Length Dosing,... Start Date: 07/11/21 Status: Ordered Multivitamins 1, Oral, Daily, 0 Refill(s), Start: 01/24/21 14:03:00 AKDT, Prescription Type: Internal Fire Equipment Inspector Helper Start Date: 01/24/21 Status: Ordered Vitamin B6 50 mg oral tablet = 1 tab(s), Oral, TID, PRN: Nausea, Take with doxylamine, # 180 tab(s), 0 Refill(s), Start: 04/24/21 8:55:00 AKST, Pharmacy: [facility], Prescription Type: Internal Fire Equipment Inspector Helper, 178, cm, 03/03/21 11:20:00 AKST, Height/Length Dosing... Start Date: 04/24/21 Status: Ordered Vitamin D3 25 mcg, Oral, Daily, 0 Refill(s), Start: 01/24/21 14:03:00 AKDT, Prescription Type: Internal Fire Equipment Inspector Helper Start Date: 01/24/21 Status: Ordered Problem [...] would spoke only at parties socially, from [id number]
--- OUTSIDE RECORDS SUMMARY | 2024-03-19 15:31 | XMS_ITS | Continuity of Care Document ---
Author Organization [facility] Address [address] [place] [address] Care Team Providers Care Grinder Operator External Tool Name Role Phone Mikayla James Primary Care Physician [phone] Encounter Date(s): 04/12/21 - 04/12/21 [facility] Outpatient [address] [facility] [place] [address] Discharge Disposition: Discharge Attending Physician: Mikayla James MD Referring Physician: Mikayla James MD Allergies, Adverse Reactions, Alerts No Known Allergies Assessment and Plan Diagnostic Tests Pending * COVID-19 PCR (In-House) 04/12/21 Future Scheduled Tests Laboratory* ALT 04/07/21 * [...] 1Result Comment: [place] [facility] - in 3 weeks (04/01/20) 2Result Comment: 2020-02-15: EMPLOYEE HEALTH, RISK & BENEFITS DISCUSSED Medications Ativan 1 mg oral tablet = 1 tab(s), Oral, BID, PRN: flight anxiety, # 6 tab(s), 0 Refill(s), Start: 03/02/21 11:51:00 AKST,Stop: 08/23/21 8:00:00 AKDT, Pharmacy: [facility], Prescription Type: Internal Audio Video Technician, 178, cm, 02/15/21 15:47:00 AKST, Height... Start Date: 03/02/21 Stop Date: 08/23/21 Status: Ordered hydrOXYzine hydrochloride 25 mg oral tablet = 1 tab(s), Oral, QID, PRN: anxiety, # 15 tab(s), 0 Refill(s), Start: 03/02/21 16:46:00 AKST, Stop:05/23/21 12:03:00 AKST, Pharmacy: [facility], Prescription Type: Internal Audio Video Technician, 178, cm, 02/15/21 15:47:00 AKST, Height/Jessica... Start Date: 03/02/21 Stop Date: 05/23/21 Status: Ordered Multivitamins 1, Oral, Daily, 0 Refill(s), Start: 01/24/21 14:03:00 AKDT, Prescription Type: Internal Audio Video Technician Start Date: 01/24/21 Status: Ordered Vitamin D3 25 mcg, Oral, Daily, 0 Refill(s), Start: 01/24/21 14:03:00 AKDT, Prescription Type: Internal Audio Video Technician Start Date: 01/24/21 Status: Ordered Problem List Condition Effective Dates Status Health Status Inform ant Anxiety disorder(Confirmed) Active Exercise-induced asthma(Confirmed) Active Family history of malignant melanoma of skin(Confirmed) Active Social History Social History Type Response Tobacco Tobacco Use: Denies tobacco use. 1 Sex Female 1in past >3yr pt would spoke only at parties socially, from [phone]
--- OUTSIDE RECORDS SUMMARY | 2024-03-19 15:31 | XMS_ITS | Continuity of Care Document ---
Author Organization [facility] Address [address] [place] [address] Care Team Providers Care Field Nurse Case Manager Name Role Phone Mikayla James Primary Care Physician [phone] Encounter Date(s): 09/12/21 - 09/12/21 [facility] Outpatient [address] [place] [address] [place] [phone] Encounter Diagnosis (Discharge Diagnosis) - 09/12/21 Circumvallate placenta(Discharge Diagnosis) - 09/12/21 Discharge Disposition: Discharge Attending Physician: Mikayla James MD Allergies, Adverse Reactions, Alerts No Known Allergies Assessment and Plan Extracted from: Title:[facility] Return Author:Tara James MD Date:09/12/21 35 y/o at 28 weeks 1 da y per LMP c/w first tri US, BUTCH 12/04/21 1. -Anemia screen and 2hr GTT wnl -O+ so Rhogam not indicated -Has been referred to PT for pelvic floor strengthening -Tdap today -Delivery Plans: [facility]. Has establish care appointment with them in early September. - Plans: Plans to breastfeed -Contraception Plans: Condoms -Circumcision Plans: Discussed, unsure if baby is a boy if they would want circumcision. Ordered: Referral 2. Circumvallate placenta -Reviewed MFM consult note. -Reassurance provided that growth has been normal! -Patient understands associated risks. -F/u growth US 5-6 weeks after last US (already scheduled). -Likely start antepartum monitoring 32 weeks. Ordered: Referral Orders: tetanus/diphth/pertuss (Tdap) adult/adol, 0.5 mL, IM, Susp-Inj, Once, Stop date: 09/12/21 15:10:00 AKDT 20-29 minutes were spent performing the following [...] PCR (In-House) 01/18/21 * COVID-19 PCR (In-House) 09/13/21 * COVID-19 [...] 2Result Comment: will get 2nd dose in [place], via [facility] - in 3 weeks (04/01/20) 3Result Comment: 2020-02-15: EMPLOYEE HEALTH, RISK & BENEFITS DISCUSSED Medications doxylamine 25 mg oral tablet = 0.5 tab(s), Oral, TID, PRN: for nausea, take with pyridoxine (vitamin B6), # 30 tab(s), 1 Refill(s), Start: 07/13/21 9:16:00 AKDT, Pharmacy: [facility], Prescription Type: Internal Commercial Parts Professional, 178, cm, 06/21/21 16:51:00 AKDT, H... Start Date: 07/13/21 Status: Ordered hydrOXYzine hydrochloride 10 mg oral tablet = 1 tab(s), Oral, QID, PRN: anxiety, # 30 tab(s), 0 Refill(s), Start: 07/11/21 11:25:00 AKDT, Pharmacy: [facility] [employer], Prescription Type: Internal Commercial Parts Professional, Anxiety disorder, 178, cm, 06/21/21 16:51:00 AKDT, Height/Length Dosing,... Start Date: 07/11/21 Status: Ordered Multivitamins 1, Oral, Daily, 0 Refill(s), Start: 01/24/21 14:03:00 AKDT, Prescription Type: Internal Commercial Parts Professional Start Date: 01/24/21 Status: Ordered Vitamin B6 50 mg oral tablet = 1 tab(s), Oral, TID, PRN: Nausea, Take with doxylamine, # 180 tab(s), 0 Refill(s), Start: 04/24/21 8:55:00 AKST, Pharmacy: [facility], Prescription Type: Internal Commercial Parts Professional, 178, cm, 03/03/21 11:20:00 AKST, Height/Length Dosing... Start Date: 04/24/21 Status: Ordered Vitamin D3 25 mcg, Oral, Daily, 0 Refill(s), Start: 01/24/21 14:03:00 AKDT, Prescription Type: Internal Commercial Parts Professional Start Date: 01/24/21 Status: Ordered ZyrTEC Daily, 0 Refill(s), Start: 09/12/21 15:07:00 AKDT, Prescription Type: Internal Commercial Parts Professional Start Date: 09/12/21 Status: Ordered Problem List Condition Effective Dates Status Health Status Inform ant Anxiety disorder(Confirmed) Active AMA (advanced maternal age) primigravida 35+(Confirmed) Active Exercise-induced asthma(Confirmed) Active Maternal family history of dementia(Confirmed) Active Family history of malignant melanoma of skin(Confirmed) Active 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/21 Active Diagnosis Diagnosis Type Effective Dates Health Status Clinical Service Informant Circumvallate placenta Discharge Diagnosis 09/12/21 Discharge Diagnosis 09/12/21 Vital Signs Most recent to oldest [Reference Range]: 1 Temperature Temporal Artery [97.3-100.6 DegF] 97 DegF *LOW* (09/12/21 3:04 PM) Peripheral Pulse Rate [60-100 bpm] 73 bp m (09/12/21 3:04 PM) Respiratory Rate [14-20 br/min] 16 br/mi n (09/12/21 3:04 PM) Blood Pressure [90-140/60-90 mmHg] 115/6 7mmHg (09/12/21 3:04 PM) Mean Arterial Pressure, Cuff [59-90 mmHg ] 83 mmHg (09/12/21 3:04 PM) SpO2 98 % (09/12/21 3:04 PM) Social History Social History Type Response Tobacco Tobacco Use: Denies tobacco use. 1 Sex Female 1in past >3yr pt would spoke only at parties socially, from [phone] Care Team Personnel Name: Mikayla James MD Address: Address: [address], [place] [address]
--- OUTSIDE RECORDS SUMMARY | 2024-03-19 15:31 | XMS_ITS | Continuity of Care Document ---
Author Organization [facility] Address [address] [place] [id number] Care Team Providers Care Television Presenter Name Role Phone Mikayla James Primary Care Physician Encounter Date(s): 02/13/24 - 02/13/24 [facility] [address] [place] [address] [place] [phone] Encounter Diagnosis Anxiety disorder(Discharge Diagnosis) - 02/13/24 AMA (advanced maternal age) primigravida 35+(Discharge Diagnosis) - 02/13/24 Abdominal cramping(Discharge Diagnosis) - 02/13/24 (Discharge Diagnosis) - 02/13/24 Exercise-induced asthma(Discharge Diagnosis) - 02/13/24 Rt groin pain(Discharge Diagnosis) - 02/13/24 Nausea and vomiting in (Discharge Diagnosis) - 02/13/24 Discharge Disposition: Discharge Attending Physician: Tammy Cho FNP, DNP Allergies, Adverse Reactions, Alerts No Known Allergies Assessment and Plan Extracted from: Title:[facility]: f/u ob Author:Tammy Cho F CIVIL RIGHTS ATTORNEY, FUNMI Date:02/13/24 38 y/o at 17w 3d per LM P c/w first trimester US, BUTCH 07/20/24 Father _: Jair Baby s Doctor: ALEX Aneuploidy screening: low risk Carrier screening: discussed labs: GC/C: neg Syphilis 04/27 trim: [_] Pap: 02/13 NILM Influenza vaccine: UTD Tdap: 28w RSV: 32-36w RhoGam: n/a Gestational diabetes screen: [_] GBS: [_] Term Packet: [_] : _ yes Contraception: [ considering_] Delivery Location: [[place]_] ULTRASOUND: 12/25/23: Single IUP at 10w 3d, BUTCH 07/20/23 1. F/u q4 weeks, sooner as needed for nausea management. Second trimester precautions reviewed. H/o circumvallate placenta noted. Need to review delivery notes from first delivery. Has apt for anatomy screening 02/25/24 Ordered: Multiplex Vaginal Panel (MVP) Urinalysis Microscopic Urinalysis with Reflex Microscopic Urine Culture 2. Exercise-induced asthma Given refill of albuterol with spacer. Use prn if needed. Reviewed UTD risks. Per UTD hold on Symbicort as animal adverse events noted Ordered: albuterol, = 2 puff(s), INH, q6hr, # 1 EA, 0 Refill(s), Start: 02/13/24 9:32:00 AKST, Pharmacy: [facility], Prescription Type: Internal Rhic Systems Safety Engineer, Exercise-induced asthma, 178, cm, 01/01/24 9:56:00 AKDT, Height/Length Dosing, 90.72, kg, 11... spacer, chamber, See Instructions, use with inhaler, # 1 EA, 0 Refill(s), Start: 02/13/24 9:32:00 AKST, Prescription Type: Internal Rhic Systems Safety Engineer, Exercise-induced asthma 3. AMA (advanced maternal age) primigravida 35+ AMA- consider at 34 weeks monitoring and AFIs Ordered: Multiplex Vaginal Panel (MVP) Urinalysis Microscopic Urinalysis with Reflex Microscopic Urine Culture 4. Abdominal cramping Will obtain MVP and UA and culture today Ordered: Multiplex Vaginal Panel (MVP) Urinalysis Microscopic Urinalysis with Reflex Microscopic Urine Culture 5. Rt groin pain Has u/s to evaluate for hernia 02/25/2024 Resolved 02/13/24 6. Anxiety disorder Stopped sertraline 25mg daily May consider resuming in the future as winter and holidays can increase symptoms 7. Nausea and vomiting in Improving slowly Still using ondansetron 4mg ODT prn - maybe every other day currently Orders: Misc Prescription, SPACER CHAMBER, See Instructions, Attach to inhaler and use for each dose for improved medication delivery to lungs, # 1 EA, 0 Refill(s), Pharmacy: [facility], Prescription Type: External Prescription, 178, cm, 01/01/24 9:56:0... ondansetron, 1 - 2 tab(s), Oral, TID, PRN: nausea and vomiting, # 30 tab(s), 1 Refill(s), Start: 02/13/24 9:39:00 AKST, Pharmacy: [facility], Prescription Type: Internal Rhic Systems Safety Engineer, Nausea Positive test, 178, cm, 01/01/24 9:56:00... ondansetron, 1 - 2 tab(s), Oral, TID, PRN: nausea and vomiting, # 30 tab(s), 1 Refill(s), Start: 01/09/24 5:57:00 AKDT, Stop: 02/13/24 9:39:00 AKST, Pharmacy: [facility], Prescription Type: Internal Rhic Systems Safety Engineer, Nausea Positive lala... Diagnostic Tests Pending * Urine Culture 02/13/24 * Multiplex Vaginal Panel (MVP) 02/13/24 * Urinalysis Microscopic 02/13/24 Future Scheduled Tests Laboratory* POC Urinalysis 11/18/23 Radiology* US OB After 1st Trimester Single Gest 02/25/24 * US Lower Extremity Limited Non-Vascular Right [...] 2Result Comment: will get 2nd dose in [place],her [place], via [facility] - in 3 weeks (04/01/20) 3Result Comment: 2020-02-15: EMPLOYEE HEALTH, RISK & BENEFITS DISCUSSED Medications albuterol 90 mcg/inh inhalation aerosol = 2 puff(s), INH, q6hr, PRN PRN Wheezing or Shortness of Breath, # 1 EA, 0 Refill(s), Start: 02/13/24 10:15:00 AM AKST, Pharmacy: [facility], Prescription Type: Internal PickUp, Exercise-induced asthma, 178, cm, 01/01/24 9:56:00 AKDT, Height/Length Dosing, 90.72, kg, 02/13/24 9:04:00 AKST, Weight Dosing Start Date: 02/13/24 Status: Ordered diphenhydrAMINE 25 mg oral capsule = 1 cap(s), Oral, q6hr, PRN: Nausea/Vomiting (NPO), Take 1-2 tablets every 6 hours., # 100 cap(s), 0 Refill(s), Start: 12/09/23 10:00:00 AM AKDT, Pharmacy: [facility], Prescription Type: Internal Rhic Systems Safety Engineer, Nausea and vomiting in , 178, cm, 12/09/23 8:51:00 AKDT, Height/Length Dosing, 85.7, kg, 11/18/23 16:08:00 AKDT, Weight Dosing Start Date: 12/09/23 Status: Ordered Multivitamins 1, Oral, Daily, 0 Refill(s), Start: 01/24/21 2:03:00 PM AKDT, Prescription Type: Internal Rhic Systems Safety Engineer Start Date: 01/24/21 Status: Ordered Senna-docusate 8.6 mg-50 mg oral tablet = 1 tab(s), Oral, Once a day (at bedtime), PRN PRN Constipation, # 12 tab(s), 0 Refill(s), Start: 01/01/24 11:51:00 AM AKDT, Pharmacy: [facility], Prescription Type: Internal Rhic Systems Safety Engineer, Nausea and vomiting in , 178, cm, 01/01/24 9:56:00 AKDT, Height/Length Dosing, 85.7, kg, 11/18/23 16:08:00 AKDT, Weight Dosing Start Date: 01/01/24 Status: Ordered sertraline 25 mg oral tablet = 1 tab(s), Oral, Daily, # 90 tab(s), 4 Refill(s), Start: 05/30/23 12:56:00 PM AKST, Pharmacy: [facility], Prescription Type: Internal Rhic Systems Safety Engineer, 178, cm, 09/17/22 13:29:00 AKDT,Height/Length Dosing, 87, kg, 09/17/22 13:29:00 AKDT, Weight Dosing Start Date: 05/30/23 Status: Ordered SPACER CHAMBER SPACER CHAMBER, See Instructions, Attach to inhaler and use for each dose for improved medication delivery to lungs, # 1 EA, 0 Refill(s), Pharmacy: [facility], Prescription Type: External Prescription, 178, cm, 01/01/24 9:56:00 AKDT, Height/Length Dosing, 90.72, kg, 02/13/24 9:04:00 AKST, Weight Dosing Start Date: 02/13/24 Status: Ordered spacer, chamber See Instructions, use with inhaler, # 1 EA, 0 Refill(s), Start: 02/13/24 9:32:00 AM AKST, Prescription Type: Internal Rhic Systems Safety Engineer, Exercise-induced asthma Start Date: 02/13/24 Status: Ordered Vitamin D3 25 mcg, Oral, Daily, 0 Refill(s), Start: 01/24/21 2:03:00 PM AKDT, Prescription Type: Internal Rhic Systems Safety Engineer Start Date: 01/24/21 Status: Ordered Zofran ODT 4 mg oral tablet, disintegrating 1 - 2 tab(s), Oral, TID, PRN: nausea and vomiting, # 30 tab(s), 1 Refill(s), Start: 02/13/24 9:39:00 AM AKST, Pharmacy: [facility], Prescription Type: Internal Rhic Systems Safety Engineer, Nausea Positive test, 178, cm, 01/01/24 9:56:00 [...] Health Status Clinical Service Informant Discharge Diagnosis 02/13/24 AMA (advanced maternal age) primigravida 35+ Discharge Diagnosis 02/13/24 Abdominal cramping Discharge Diagnosis 02/13/24 Exercise-induced asthma Discharge Diagnosis 02/13/24 Rt groin pain Discharge Diagnosis 02/13/24 Anxiety disorder Discharge Diagnosis 02/13/24 Nausea and vomiting in Discharge Diagnosis 02/13/24 Results Laboratory List Name Date Urinalysis with Reflex Microscopic 02/12 Most recent to oldest [Reference Range]: 1 Specific [place] [1.005-1.030] 1.020 (02/13/24 9:25 AM) pH - Urine [5.0-8.0] 7.0 (02/13/24 9:25 AM) Leukocytes Esterase [NEGATIVE-NEGATIVE] Small *ABN* (02/13/24 9:25 AM) Nitrites [NEGATIVE-NEGATIVE] Negative (02/13/24 9:25 AM) Protein [NEGATIVE-NEGATIVE mg/dL] Negati ve mg/dL (02/13/24 9:25 AM) Ketones [NEGATIVE-NEGATIVE] Negative (02/13/24 9:25 AM) Urobilinogen [0.2, 1.0 EU/dL] 0.2 EU/dL (02/13/24 9:25 AM) Bilirubin [NEGATIVE-NEGATIVE] Negative (02/13/24 9:25 AM) Blood [NEGATIVE-NEGATIVE] Trace-intact *ABN* (02/13/24 9:25 AM) Microscopic YES (02/13/24 9:25 AM) COLOR - Urine [YELLOW] Yellow (02/13/24 9:25 AM) Glucose UA [NEGATIVE-NEGATIVE mg/dL] Neg ative mg/dL (02/13/24 9:25 AM) Urine Appearance [CLEAR] Clear (02/13/24 9:25 AM) Urine Source Clean Catch (02/13/24 9:25 AM) Vital Signs Most recent to oldest [Reference Range]: 1 Temperature Temporal Artery [97.3-100.6 DegF] 98.9 DegF (02/13/24 9:04 AM) Peripheral Pulse Rate [60-100 bpm] 85 bp m (02/13/24 9:04 AM) Respiratory Rate [14-20 br/min] 16 br/mi n (02/13/24 9:04 AM) Blood Pressure [90-140/60-90 mmHg] 116/7 3mmHg (02/13/24 9:04 AM) SpO2 97 % (02/13/24 9:04 AM) Height/Length Measured 178 cm (02/13/24 9:04 AM) Weight Measured 90.72 kg (02/13/24 9:04 AM) Weight Dosing 90.72 kg (02/13/24 9:04 AM) Body Mass Index Measured 28.63 kg/m2 (02/13/24 9:04 AM) Social History Social History Type Response Tobacco Tobacco Use: Denies tobacco use. 1 Sex Female 1in past >3yr pt would spoke only at parties socially, from [id number] OB Documentation-Provider * Tammy Cho, PJ, DNP: PERFORM Event Display: OB Documentation-Provider Authored Date: Chief Complaint 17w 3day OB Para Information: ??:??2 ??Para Term:??1 ??Para :??0 ??Para Abortions:??0 ??Para Living:??1 BUTCH/EGA Gestational Age (EGA) and BUTCH? * Note: EGA calculated as of 02/13/2024 ?? BUTCH:??07/20/2024?EGA*:??17 weeks 3 days ?Type:??Authoritative?Method Date:??10/14/2023 ?Method:??Last Menstrual Period??(10/14/2023) ?Confirmation:??Confirmed ?Description:??-- ?Comments:??-- ?Entered by:??Teresa Brooks RN on 11/20/2023? Other BUTCH Calculations for this : ?Method:??Ultrasound ?Method Date:??12/25/2023 ?BUTCH:??07/19/2024 ?EGA (At Entry):??10 weeks 3 days ?Type:??Non-Authoritative ?Comments:??-- ?Entered by:??Teresa Brooks RN on 12/29/2023 History of Present Illness Visit Date: 02/13/24 Provider: Deb Cho NP [...] James MD Gestational Age:?? 13w 1d Comments:?? Dylon presents with continued persistent nausea/anorexia and occasional [...] as needed. ?? Visit Date 11/18/23 Provider: Erika,??Vidal ALICIA Gestational Age: Comments:??Dylon presents for confirmation.?? [...] of melanoma in both of her parents.? Review of Systems Patient has vitamins and is??compliant. Patient does not have scotoma or other visual disturbance. Patient does not have headache. Patient does not have nausea or vomiting. Patient does not have back pain. Patient does not have abdominal pain.-lower abd??cramping occasionally Patient does not have contractions. Patient does not have Anurag Feldman contractions. Patient does not have vaginal discharge present. Patient does not have vaginal bleeding. Patient does not have dysuria. Patient is having movement. Patient does not have swelling in the legs/ankles/hands. Physical Exam Vitals & Measurements T:??98.9?F ??(Temporal Artery)?? HR:??85??(Peripheral)?? RR:??16?? BP:??116/73?? SpO2:??97%?? HT:??178??cm?? WT:??90.72??kg?? BMI:??28.63?? Visit Assessment EGA, per Visit: 17W 3D (02/13/24) Weight Measured: 90.72 kg (02/13/24) Systolic Blood Pressure: 116 mmHg (02/13/24) Diastolic Blood Pressure: 73 (02/13/24) Labor Signs/Symptoms: None (02/13/24) Next Appointment: 4 week(s) (02/13/24) Baby A - Heart Tones: 145 bpm (02/13/24) Baby A - Activity: Present per patient (02/13/24) GEN: Well developed well nourished??. Patient appears alert and oriented, in no apparent distress. HEENT: Normocephalic, atraumatic.?? NECK: Symmetrical and??Supple without lymphadenopathy or masses. RESP: Lungs clear to auscultation bilaterally. Good air movement and chest expansion. HEART: Regular rate. Capillary refill <2 seconds. Radial pulses +2 bilaterally. ABD: FHR 145-150's EXT: No clubbing, cyanosis or pedal edema. NEURO: No focal deficits noted.?? Equal strength and coordination noted bilaterally.?? PSYCH: Normal mood and affect. Good eye contact and engages easily. Reliable historian. ?? Assessment/Plan 38 y/o at 17w 3d per LMP c/w first trimester US, BUTCH 07/20/24 ?? Father???_: Jair Baby???s Doctor: TBD Aneuploidy screening: low risk Carrier screening:??discussed labs:?? GC/C: neg Syphilis 04/27 trim:??[_] Pap: 02/13 NILM Influenza vaccine: UTD Tdap: 28w RSV:??32-36w RhoGam: n/a Gestational diabetes screen: [_] GBS: [_] Term Packet: [_] :?_??yes Contraception:??[ considering_] Delivery Location:??[[place]_] ?? ULTRASOUND: 12/25/23:?? Single IUP at 10w 3d, BUTCH 07/20/23 ?? 1.?F/u q4 weeks, sooner as needed for nausea management.? Second trimester precautions reviewed.? H/o circumvallate placenta noted.?? Need to review delivery notes from first delivery. Has apt for anatomy screening 02/25/24 ?? Ordered: Multiplex Vaginal Panel (MVP) Urinalysis Microscopic Urinalysis with Reflex Microscopic Urine Culture ?? 2.??Exercise-induced asthma ??Given refill of albuterol with spacer. Use prn if needed. Reviewed UTD risks. Per UTD hold on Symbicort??as animal adverse events noted Ordered: albuterol, = 2 puff(s), INH, q6hr, # 1 EA, 0 Refill(s), Start: 02/13/24 9:32:00 AKST, Pharmacy: [facility], Prescription Type: Internal Rhic Systems Safety Engineer, Exercise-induced asthma, 178,cm, 01/01/24 9:56:00 AKDT, Height/Length Dosing, 90.72, kg, 11... spacer, chamber, See Instructions, use with inhaler, # 1 EA, 0 Refill(s), Start: 02/13/24 9:32:00 AKST, Prescription Type: Internal Rhic Systems Safety Engineer, Exercise-induced asthma ?? 3.??AMA (advanced maternal age) primigravida 35+ ??AMA- consider at 34 weeks monitoring and AFIs Ordered: Multiplex Vaginal Panel (MVP) Urinalysis Microscopic Urinalysis with Reflex Microscopic Urine Culture ?? 4.??Abdominal cramping ??Will obtain MVP and UA and culture today Ordered: Multiplex Vaginal Panel (MVP) Urinalysis Microscopic Urinalysis with Reflex Microscopic Urine Culture ?? 5.??Rt groin pain Has u/s to evaluate for hernia 02/25/2024?? Resolved??02/13/24 ?? 6.??Anxiety disorder ??Stopped sertraline 25mg daily May consider resuming in the future as winter and holidays can increase symptoms ?? 7.??Nausea and vomiting in ??Improving slowly Still using ondansetron 4mg ODT prn??- maybe every other day currently ?? Orders: Misc Prescription, SPACER CHAMBER, See Instructions, Attach to inhaler and use for each dose for improved medication delivery to lungs, # 1 EA, 0 Refill(s), Pharmacy: [facility], Prescription Type: External Prescription, 178, cm, 01/01/24 9:56:0... ondansetron, 1 - 2 tab(s), Oral, TID, PRN: nausea and vomiting, # 30 tab(s), 1 Refill(s), Start: 02/13/24 9:39:00 AKST, Pharmacy: [facility], Prescription Type: Internal PickUp, Nausea Positive test, 178, cm, 01/01/24 9:56:00... ondansetron, 1 - 2 tab(s), Oral, TID, PRN: nausea and vomiting, # 30 tab(s), 1 Refill(s), Start: 01/09/24 5:57:00 AKDT, Stop: 02/13/24 9:39:00 AKST, Pharmacy: [facility], Prescription Type: Internal Rhic Systems Safety Engineer, Nausea Positive lala... Plan No qualifying data available. Lab Results Test Name Test Result Date/TimeWBC 7.2 K/uL 01/01/2024 10:08 AKDT WBC 9.0 K/uL 12/26/2023 07:34 AKDT WBC 6.7 K/uL 09/27/2022 08:02 AKDT HGB 13.2 gm/dL 01/01/2024 10:08 AKDT HGB 14.0 gm/dL 12/26/2023 07:34 AKDT HGB 14.7 gm/dL 09/27/2022 08:02 AKDT HCT 37.0 % 01/01/2024 10:08 AKDT HCT 39.3 % 12/26/2023 07:34 AKDT HCT 42.2 % 09/27/2022 08:02 AKDT Platelet Count 274.0 K/uL 01/01/2024 10:08 AKDT Platelet Count 337.0 K/uL 12/26/2023 07:34 AKDT Platelet Count 314.0 K/uL 09/27/2022 08:02 AKDT RBC 4.22 M/uL 01/01/2024 10:08 AKDT RBC 4.39 M/uL 12/26/2023 07:34 AKDT RBC 4.85 M/uL 09/27/2022 08:02 AKDT MCV 87.7 fL 01/01/2024 10:08 AKDT MCV 89.5 fL 12/26/2023 07:34 AKDT MCV 87.0 fL 09/27/2022 08:02 AKDT MCH 31.3 pg 01/01/2024 10:08 AKDT MCH 31.9 pg 12/26/2023 07:34 AKDT MCH 30.3 pg 09/27/2022 08:02 AKDT MCHC 35.7 gm/dL (High) 01/01/2024 10:08 AKDT MCHC 35.6 gm/dL (High) 12/26/2023 07:34 AKDT MCHC 34.8 gm/dL 09/27/2022 08:02 AKDT RDW 12.0 % 01/01/2024 10:08 AKDT RDW 12.4 % 12/26/2023 07:34 AKDT RDW 12.7 % 09/27/2022 08:02 AKDT MPV 9.7 fL 01/01/2024 10:08 AKDT MPV 9.1 fL 12/26/2023 07:34 AKDT MPV 9.6 fL 09/27/2022 08:02 AKDT Neutrophils, Percentage: 76.0 % 01/01/2024 10:08 AKDT Neutrophils, Percentage: 67.4 % 12/26/2023 07:34 AKDT Neutrophils, Percentage: 46.9 % (Low) 09/27/2022 08:02 AKDT Lymphocytes, Percentage: 15.9 % 01/01/2024 10:08 AKDT Lymphocytes, Percentage: 24.8 % 12/26/2023 07:34 AKDT Lymphocytes, Percentage: 41.1 % 09/27/2022 08:02 AKDT Absolute Neutrophils: 5.5 K/uL 01/01/2024 10:08 AKDT Absolute Neutrophils: 6.1 K/uL 12/26/2023 07:34 AKDT Absolute Neutrophils: 3.1 K/uL 09/27/2022 08:02 AKDT Absolute Lymphocytes: 1.1 K/uL 01/01/2024 10:08 AKDT Absolute Lymphocytes: 2.2 K/uL 12/26/2023 07:34 AKDT Absolute Lymphocytes: 2.8 K/uL 09/27/2022 08:02 AKDT Mixed Cells % 8.1 % 01/01/2024 10:08 AKDT Mixed Cells % 7.8 % 12/26/2023 07:34 AKDT Mixed Cells % 12.0 % 09/27/2022 08:02 AKDT Mixed Cells Absolute 0.6 K/uL 01/01/2024 10:08 AKDT Mixed Cells Absolute 0.7 K/uL 12/26/2023 07:34 AKDT Mixed Cells Absolute 0.8 K/uL 09/27/2022 08:02 AKDT BUN/Creatinine Ratio 19 09/27/2022 08:02 AKDT GFR (estimated) 113 mL/min 01/01/2024 10:08 AKDT eGFR Non- 106 09/27/2022 08:02 AKDT Sodium 140 mmol/L 01/01/2024 10:08 AKDT Sodium 140 mmol/L 09/27/2022 08:02 AKDT Potassium 3.8 mmol/L 01/01/2024 10:08 AKDT Potassium 3.9 mmol/L 09/27/2022 08:02 AKDT Chloride 105 mmol/L 01/01/2024 10:08 AKDT Chloride 101 mmol/L 09/27/2022 08:02 AKDT CO2 24 mmol/L 01/01/2024 10:08 AKDT CO2 24 mmol/L 09/27/2022 08:02 AKDT BUN 9 mg/dL 01/01/2024 10:08 AKDT BUN 14 mg/dL 09/27/2022 08:02 AKDT CREATININE 0.7 mg/dL (Low) 01/01/2024 10:08 AKDT CREATININE 0.75 mg/dL 09/27/2022 08:02 AKDT Glucose Level 98 mg/dL 01/01/2024 10:08 AKDT Glucose Level 85 mg/dL 12/26/2023 07:34 AKDT Glucose Level 84 mg/dL 09/27/2022 08:02 AKDT Calcium 9.2 mg/dL 01/01/2024 10:08 AKDT Calcium 9.5 mg/dL 09/27/2022 08:02 AKDT Magnesium 2.0 mg/dL 01/01/2024 10:11 AKDT Protein,Total 6.5 gm/dL 01/01/2024 10:08 AKDT Protein,Total 6.8 gm/dL 09/27/2022 08:02 AKDT AST (SGOT) 28 U/L 01/01/2024 10:08 AKDT AST (SGOT) 16 IntUnit/L 09/27/2022 08:02 AKDT ALT (SGPT) 11 U/L 01/01/2024 10:08 AKDT ALT (SGPT) 15 IntUnit/L 09/27/2022 08:02 AKDT Alkaline Phosphatase 52 U/L 01/01/2024 10:08 AKDT Alkaline Phosphatase 79 IntUnit/L 09/27/2022 08:02 AKDT Bilirubin, Total 0.6 mg/dL 01/01/2024 10:08 AKDT Bilirubin, Total 0.5 mg/dL 09/27/2022 08:02 AKDT Anion Gap 11.0 01/01/2024 10:08 AKDT Hemoglobin A1C 4.9 % 12/26/2023 07:34 AKDT Hemoglobin A1C 5.0 % 09/27/2022 08:02 AKDT GESTATIONAL AGE Yes 12/26/2023 07:34 AKDT GESTATIONAL AGE [place] 12/26/2023 07:34 AKDT ALBUMIN: 3.1 gm/dL (Low) 01/01/2024 10:08 AKDT VITAMIN D, 25-OH TOTAL 27 ng/mL (Low) 12/26/2023 07:34 AKDT ALB/GLOB RATIO 2.0 09/27/2022 08:02 AKDT GLOBULIN 2.3 gm/dL 09/27/2022 08:02 AKDT UR HCG Qualitative Positive (Abnormal) 11/18/2023 16:21 AKDT COLOR - Urine Yellow 01/01/2024 10:09 AKDT Urine Appearance Clear 01/01/2024 10:09 AKDT Urine Source Clean Catch 01/01/2024 10:09 AKDT Urine Source Clean Catch 01/01/2024 10:09 AKDT Specific [place] 1.025 01/01/2024 10:09 AKDT pH - Urine 6.0 01/01/2024 10:09 AKDT Leukocytes Esterase Trace (Abnormal) 01/01/2024 10:09 AKDT Nitrites Negative 01/01/2024 10:09 AKDT Protein Negative 01/01/2024 10:09 AKDT Glucose UA Negative 01/01/2024 10:09 AKDT Ketones Negative 01/01/2024 10:09 AKDT Urobilinogen 0.2 EU/dL 01/01/2024 10:09 AKDT Bilirubin Negative 01/01/2024 10:09 AKDT Blood Negative 01/01/2024 10:09 AKDT RBC Urine Manual 0-2 (Abnormal) 01/01/2024 10:09 AKDT White Cell Urine Manual 0-2 (Abnormal) 01/01/2024 10:09 AKDT Bacteria Urine Manual 1+ (Abnormal) 01/01/2024 10:09 AKDT Mucus Urine Manual OCCASIONAL (Abnormal) 01/01/2024 10:09 AKDT Epithelial Cells Urine Manual 10-20 (Abnormal) 01/01/2024 10:09 AKDT Casts Urine Manual NONE OBSERVED 01/01/2024 10:09 AKDT Crystals Urine Manual NONE OBSERVED 01/01/2024 10:09 AKDT Yeast Urine Manual OCCASIONAL (Abnormal) 01/01/2024 10:09 AKDT Hep C Ab,Total Non Reactive 12/26/2023 07:34 AKDT Hep B Surface Ag Negative 12/26/2023 07:34 AKDT HIV-1/2 Antigen and Antibodies, 4th Gene NON-REACTIVE 12/26/2023 07:34 AKDT RPR Non Reactive 12/26/2023 07:34 AKDT Rubella Immune Status IgG 4.12 Index 12/26/2023 07:34 AKDT Fluid Type Urine 01/01/2024 12:00 AKDT ABO/RH CONFIRMED ABO/RH MUST BE CONFIRMED BEFORE RELEASE OF BLOOD PRODUCTS. SUBMIT A PURPLE TOP TO LAB UPON ADMIT. NO ADDITIONAL ORDER REQUIRED (FOR T+S ORDER) 01/01/2024 12:01 AKDT Antibody Screen NEGATIVE 01/01/2024 12:01 AKDT PATIENT ABO O 01/01/2024 12:01 AKDT PATIENT Rh POSITIVE 01/01/2024 12:01 AKDT Trisomy 21 (Down Syndrome) Negative 12/26/2023 07:34 AKDT Trisomy 18 (Perea Syndrome) Negative 12/26/2023 07:34 AKDT Trisomy 13 ([place] Syndrome) Negative 12/26/2023 07:34 AKDT Monosomy X (Kan Syndrome) Not Detected 12/26/2023 07:34 AKDT XYY (Wells Syndrome) Not Detected 12/26/2023 07:34 AKDT XXY (Klinefelter Syndrome) Not Detected 12/26/2023 07:34 AKDT XXX (Triple X Syndrome) Not Detected 12/26/2023 07:34 AKDT Fraction 17% 12/26/2023 07:34 AKDT [id number] Interpretation Negative 12/26/2023 07:34 AKDT Y Chromosome Opt-Out 12/26/2023 07:34 AKDT 22q11 Deletion (DiGeorge) Not Detected 12/26/2023 07:34 AKDT 15q11 deletion (PW Angleman) Not Detected 12/26/2023 07:34 AKDT 11q23 deletion (Tiny) Not Detected 12/26/2023 07:34 AKDT 8q24 deletion (Millie-Giedion) Not Detected 12/26/2023 07:34 AKDT 5p15 deletion (Cri-du-chat) Not Detected 12/26/2023 07:34 AKDT 4p16 deletion (Marin-Hirschhorn) Not Detected 12/26/2023 07:34 AKDT 1p36 deletion syndrome Not Detected 12/26/2023 07:34 AKDT Trisomy 16 Not Detected 12/26/2023 07:34 AKDT Trisomy 22 Not Detected 12/26/2023 07:34 AKDT Chlamydia trachomatis DNA NOT DETECTED 01/01/2024 12:00 AKDT Neisseria gonorrhoeae DNA NOT DETECTED 01/01/2024 12:00 AKDT Diagnostic Results (12/25/2023 10:40 AKDT US OB 1st Trimester Single Gestation) ?? Reason For Exam Dating ?? Report ? Patient Name: DYLON HEREDIA ?? Patient : ??1985 ?? Referring Physician: Mikayla James ? Exam: US OB 1st Trimester Single Gestation ?? Exam Reason: Dating ? First trimester OB ultrasound using transabdominal imaging. ?? Comparison: None. ?? Findings: There is a single intrauterine gestational sac noted with a yolk sac measuring 4.0 mm geraldine pole with a crown-rump length 3.46 cm consistent with an 10w3d gestation and an estimated date of delivery of 07/19/2024. ?? heart rate was measured at 163 bpm. ??The ovaries bilaterallyhad normal appearance with the right ovary measuring 1.0 x 2.2 x ??2.2 cm and the left ovary measuring 2.5 x 3.2 x 3.1 cm. ??There is no free fluid or adnexal masses. ?? Impression: Single intrauterine with an 10w3d ??gestation and an estimated date of delivery of 07/19/2024 . ? Radiologist: Leonora Rodriguez MD ?? Signed: ?12/25/2023 11:05 AM ?Transcribed: 12/25/2023 11:04 AM ?? Leonora Rodriguez MD ?? [1] Medications albuterol 90 mcg/inh inhalation aerosol, 2 puff(s), INH, q6hr diphenhydrAMINE 25 mg oral capsule, 25 mg= 1 cap(s), Oral, q6hr, PRN Multivitamins, 1, Oral, Daily Senna-docusate 8.6 mg-50 mg oral tablet, 1 tab(s), Oral, Once a day (at bedtime), PRN sertraline 25 mg oral tablet, 25 mg= 1 tab(s), Oral, Daily, 4 refills SPACER CHAMBER, See Instructions spacer, chamber, See Instructions Vitamin D3, 25 mcg, Oral, Daily Zofran ODT 4 mg oral tablet, disintegrating, 1 - 2 tab(s), Oral, TID, PRN, 1 refills Allergies NKA Gynecological History ?? History?(1,0,0,1)? # 1 ?Baby 1 ?Outcome Date:??12/05/2021?Outcome or Result:??Vaginal, Vacuum Assist ?Gest Age:??40 weeks 1 days ? Outcome:??Live ? Sex:??Male?Wt:?2800 g ?Maternal Complications:??Advanced maternal age; Intrauterine growth restriction.; Oligohydramnios ? Complications:??Meconium stained; Vacuum delivery ? Complications:??Meconium aspiration ?Child's Name:??Kendrick White ?Name of Father/Guardian of :??Guillermo White ?Hospital:??[facility] Problem List/Past Medical History Ongoing AMA (advanced maternal age) primigravida 35+ Anxiety disorder Circumvallate placenta Exercise-induced asthma Family history of malignant melanoma of skin Maternal family history of dementia Nausea and vomiting in Rt groin pain Historical Dysuria Febrile Headache Left otitis media Nausea Right otitis media Social History Alcohol Denies alcohol use, not [...] Screening ?No genetic disorders have been recorded. [1]??US OB 1st Trimester Single Gestation; Leonora Rodriguez MD 12/25/2023 10:40 AKFITO Tammy Emerita Cho, DRIVER EXAMINER, DNP Patient Care team information Care Team Personnel Name: Mikayla James MD Position: Rural Provider ([facility]) Member Role: Primary Care Provider Address: Address: [address] [address]- [place] Care Team Related Persons Name: EARNEST HEREDIA Address: Home [address] [place] [address] Name: EARNEST HEREDIA Address: [facility] Name: GUILLERMO WHITE Address: [address] [address] Address: Home [address] [place] [address] Address: Mailing [address] [place] [address]
--- OUTSIDE RECORDS SUMMARY | 2024-03-19 15:31 | XMS_ITS | Continuity of Care Document ---
Author Organization [facility] Out[facility] nt Address [address] [place] [address] Care Team Providers Care Interactive Marketing Strategist Name Role Phone Mikayla James Primary Care Physician Encounter Date(s): 06/07/21 - 06/07/21 [facility] Outpatient [address] [place] [address] Discharge Disposition: Discharge Attending Physician: Mikayla James MD Referring Physician: Mikayla James MD Allergies, Adverse Reactions, Alerts No Known Allergies Assessment and Plan Diagnostic Tests Pending * COVID-19 PCR (In-House) 06/07/21 Future Scheduled Tests Laboratory* ALT 04/07/21 * [...] PCR (In-House) 01/18/21 * COVID-19 PCR (In-House) 06/21/21 * COVID-19 PCR (In-House) 06/28/21 * COVID-19 PCR (In-House) 07/05/21 * COVID-19 PCR (In-House) 07/12/21 * COVID-19 PCR (In-House) 07/19/21 * COVID-19 PCR (In-House) 06/07/21 * COVID-19 [...] 1Result Comment: will get 2nd dose in [place], via [facility] - in 3 weeks (04/01/20) 2Result Comment: 2020-02-15: EMPLOYEE HEALTH, RISK & BENEFITS DISCUSSED Medications doxylamine 25 mg oral tablet = 0.5 tab(s), Oral, TID, PRN: for nausea, take with pyridoxine (vitamin B6), # 30 tab(s), 1 Refill(s), Start: 06/07/21 14:49:00 AKDT, Pharmacy: [facility], Prescription Type:Internal Sleever, 178, cm, 03/03/21 11:20:00 AKST,... Start Date: 06/07/21 Status: Ordered Multivitamins 1, Oral, Daily, 0 Refill(s), Start: 01/24/21 14:03:00 AKDT, Prescription Type: Internal Sleever Start Date: 01/24/21 Status: Ordered Vitamin B6 50 mg oral tablet = 1 tab(s), Oral, TID, PRN: Nausea, Take with doxylamine, # 180 tab(s), 0 Refill(s), Start: 04/24/21 8:55:00 AKST, Pharmacy: [facility], Prescription Type: Internal Sleever, 178, cm, 03/03/21 11:20:00 AKST, Height/Length Dosing... Start Date: 04/24/21 Status: Ordered Vitamin D3 25 mcg, Oral, Daily, 0 Refill(s), Start: 01/24/21 14:03:00 AKDT, Prescription Type: Internal Sleever Start Date: 01/24/21 Status: Ordered Problem List [...] would spoke only at parties socially, from [phone]
--- OUTSIDE RECORDS SUMMARY | 2024-03-19 15:31 | XMS_ITS | Continuity of Care Document ---
Author Organization [facility] nt Address [address] [place] [address] Care Team Providers Care Vice President Of Product Marketing Name Role Phone Mikayla James Primary Care Physician [phone] Encounter Date(s): 08/15/21 - 08/15/21 [facility] [address] [facility] [address] Discharge Disposition: Discharge Attending Physician: Mikayla James MD Allergies, Adverse Reactions, Alerts No Known Allergies Assessment and Plan Diagnostic Tests Pending * 2HR Glucose Tolerance (GTT) 08/15/21 Future Scheduled Tests Laboratory* ALT 04/07/21 * [...] PCR (In-House) 08/02/21 * COVID-19 PCR (In-House) 08/16/21 Immunizations Given and Recorded Vaccine Date Status [...] 1Result Comment: will get 2nd dose in [place], via [facility] - in 3 weeks (04/01/20) 2Result Comment: 2020-02-15: EMPLOYEE HEALTH, RISK & BENEFITS DISCUSSED Medications doxylamine 25 mg oral tablet = 0.5 tab(s), Oral, TID, PRN: for nausea, take with pyridoxine (vitamin B6), # 30 tab(s), 1 Refill(s), Start: 07/13/21 9:16:00 ELIANA, Pharmacy: [facility], Prescription Type: Internal Technical Laboratory Asst, 178, cm, 06/21/21 16:51:00 ELIANA H... Start Date: 07/13/21 Status: Ordered hydrOXYzine hydrochloride 10 mg oral tablet = 1 tab(s), Oral, QID, PRN: anxiety, # 30 tab(s), 0 Refill(s), Start: 07/11/21 11:25:00 AKDT, Pharmacy: [facility], Prescription Type: Internal Technical Laboratory Asst, Anxiety disorder, 178, cm, 06/21/21 16:51:00 AKDT, Height/Length Dosing,... Start Date: 07/11/21 Status: Ordered Multivitamins 1, Oral, Daily, 0 Refill(s), Start: 01/24/21 14:03:00 AKDT, Prescription Type: Internal Technical Laboratory Asst Start Date: 01/24/21 Status: Ordered Vitamin B6 50 mg oral tablet = 1 tab(s), Oral, TID, PRN: Nausea, Take with doxylamine, # 180 tab(s), 0 Refill(s), Start: 04/24/21 8:55:00 AKST, Pharmacy: [facility], Prescription Type: Internal Technical Laboratory Asst, 178, cm, 03/03/21 11:20:00 AKST, Height/Length Dosing... Start Date: 04/24/21 Status: Ordered Vitamin D3 25 mcg, Oral, Daily, 0 Refill(s), Start: 01/24/21 14:03:00 AKDT, Prescription Type: Internal Technical Laboratory Asst Start Date: 01/24/21 Status: Ordered Problem List Condition Effective Dates Status Health Status Inform ant Anxiety disorder(Confirmed) Active AMA (advanced maternal age) primigravida 35+(Confirmed) Active Exercise-induced asthma(Confirmed) Active Maternal family history of dementia(Confirmed) Active Family history of malignant melanoma of skin(Confirmed) Active (Confirmed) 02/27/21 Active Results Laboratory List Name Date CBC w/ Auto Diff 08/15/21 Most recent to oldest [Reference Range]: 1 WBC [4.0-12.0 K/uL] 10.2 K/uL (08/15/21 8:02 AM) RBC [3.43-5.21 M/uL] 3.87 M/uL (08/15/21 8:02 AM) HGB [10.3-14.8 gm/dL] 12.9 gm/dL (08/15/21 8:02 AM) HCT [32.5-46.2 %] 35.7 % (08/15/21 8:02 AM) MCV [82.5-98.0 fL] 92.2 fL (08/15/21 8:02 AM) MCH [26.1-32.9 pg] 33.3 pg *HI* (08/15/21 8:02 AM) MCHC [30.7-34.9 gm/dL] 36.1 gm/dL *HI* (08/15/21 8:02 AM) RDW [11.8-16.4 %] 12.6 % (08/15/21 8:02 AM) MPV [7.9-13.3 fL] 9.7 fL (08/15/21 8:02 AM) Platelet Count [136.0-388.0 K/uL] 313.0 K/uL (08/15/21 8:02 AM) Neutrophils, Percentage: [49.1-76.9 %] 7 3.4 % (08/15/21 8:02 AM) Lymphocytes, Percentage: [13.9-44.4 %] 1 9.3 % (08/15/21 8:02 AM) Absolute Neutrophils: [2.4-7.5 K/uL] 7.5 K/uL (08/15/21 8:02 AM) Absolute Lymphocytes: [1.0-3.4 K/uL] 2.0 K/uL (08/15/21 8:02 AM) Mixed Cells % [4.7-13.3 %] 7.3 % (08/15/21 8:02 AM) Mixed Cells Absolute [0.3-1.1 K/uL] 0.7 K/uL (08/15/21 8:02 AM) Social History Social History Type Response Tobacco Tobacco Use: Denies tobacco use. 1 Sex Female 1in past >3yr pt would spoke only at parties socially, from [phone]
--- OUTSIDE RECORDS SUMMARY | 2024-03-19 15:31 | XMS_ITS | Continuity of Care Document ---
Author Organization [facility] Address [address] [place] [address] Care Team Providers Care Branch Account Manager Name Role Phone Mikayla James Primary Care Physician Encounter Date(s): 07/12/21 - 07/12/21 [facility] Out[facility] [address] [place] [address] Discharge Disposition: Discharge Attending Physician: Mikayla James MD Referring Physician: Mikayla James MD Allergies, Adverse Reactions, Alerts No Known Allergies Assessment and Plan Diagnostic Tests Pending * COVID-19 PCR (In-House) 07/12/21 Future Scheduled Tests Laboratory* ALT 04/07/21 * [...] PCR (In-House) 01/18/21 * COVID-19 PCR (In-House) 07/19/21 * COVID-19 PCR (In-House) 06/14/21 * COVID-19 PCR (In-House) 04/12/21 * COVID-19 PCR (In-House) 04/19/21 * COVID-19 PCR (In-House) 02/07/21 * COVID-19 PCR (In-House) 02/14/21 Radiology* US OB Follow Up 08/09/21 Immunizations [...] 1Result Comment: will get 2nd dose in [place] hometown, via [facility] - in 3 weeks (04/01/20) 2Result Comment: 2020-02-15: EMPLOYEE HEALTH, RISK & BENEFITS DISCUSSED Medications doxylamine 25 mg oral tablet = 0.5 tab(s), Oral, TID, PRN: for nausea, take with pyridoxine (vitamin B6), # 30 tab(s), 1 Refill(s), Start: 06/07/21 14:49:00 AKFITO, Pharmacy: [facility], Prescription Type:Internal Kitchen Assistant, 178, cm, 03/03/21 11:20:00 AKST,... Start Date: 06/07/21 Status: Ordered hydrOXYzine hydrochloride 10 mg oral tablet = 1 tab(s), Oral, QID, PRN: anxiety, # 30 tab(s), 0 Refill(s), Start: 07/11/21 11:25:00 AKFITO, Pharmacy: [facility], Prescription Type: Internal Kitchen Assistant, Anxiety disorder, 178, cm, 06/21/21 16:51:00 AKDT, Height/Length Dosing,... Start Date: 07/11/21 Status: Ordered Multivitamins 1, Oral, Daily, 0 Refill(s), Start: 01/24/21 14:03:00 AKDT, Prescription Type: Internal Kitchen Assistant Start Date: 01/24/21 Status: Ordered Vitamin B6 50 mg oral tablet = 1 tab(s), Oral, TID, PRN: Nausea, Take with doxylamine, # 180 tab(s), 0 Refill(s), Start: 04/24/21 8:55:00 AKST, Pharmacy: [facility], Prescription Type: Internal Kitchen Assistant, 178, cm, 03/03/21 11:20:00 AKST, Height/Length Dosing... Start Date: 04/24/21 Status: Ordered Vitamin D3 25 mcg, Oral, Daily, 0 Refill(s), Start: 01/24/21 14:03:00 AKDT, Prescription Type: Internal Kitchen Assistant Start Date: 01/24/21 Status: Ordered Problem List [...] would spoke only at parties socially, from [phone]
--- OUTSIDE RECORDS SUMMARY | 2024-03-19 15:31 | XMS_ITS | Continuity of Care Document ---
Author Organization [facility] Out[facility] nt Address [address] [place] [address] Care Team Providers Care Drum Stenciler Name Role Phone Mikayla James Primary Care Physician Encounter Date(s): 05/17/21 - 05/17/21 [facility] Outpatient [address] [place] [address] [place] [phone] Encounter Diagnosis (Discharge Diagnosis) - 05/17/21 Abnormal placental ultrasound(Discharge Diagnosis) - 05/17/21 AMA (advanced maternal age) primigravida 35+(Discharge Diagnosis) - 05/17/21 Discharge Disposition: Discharge Attending Physician: Mikayla James MD Allergies, Adverse Reactions, Alerts No Known Allergies Assessment and Plan Extracted from: Title:[facility] First Author:David James MD Date:05/17/21 35 y/o at 11 weeks 2 da ys per LMP c/w first trimester US, BUTCH 12/04/21 1. -First labs reviewed, wnl. Genetic testing pending. -RF AMA. -Second trimester precautions reviewed. Currently patient is not having any bleeding/spotting or significant pelvic cramping. 2. Abnormal placental ultrasound -Reviewed US with tech and discussed images with Dr. Robledo, [facility]--ddx includes subchorionic hemorrhage vs. placental growth such as placental lobe/shelf or angioma). -He recommended MFM referral, subchorionic hemorrhage restrictions including pelvic rest and light activity until MFM consult. -Patient elects referral to [facility] in [facility]. Requested nursing put image on CD to take with her and send electronically. -Reassurance provided that growth normal indicating normal placental function. -Appreciate input from MFM regarding continued management and follow up. Orders: COVID-19 PCR (In-House) US OB 1st Trimester Single Gestation US OB Transvaginal 20-29 minutes were spent performing the following [...] PCR (In-House) 05/24/21 * COVID-19 PCR (In-House) 05/31/21 * COVID-19 PCR (In-House) 06/07/21 * COVID-19 [...] Comment: will get 2nd dose in [place], via [facility] - in 3 weeks (04/01/20) 2Result Comment: 2020-02-15: EMPLOYEE HEALTH, RISK & BENEFITS DISCUSSED Medications doxylamine 25 mg oral tablet = 0.5 tab(s), Oral, TID, PRN: for nausea, take with pyridoxine (vitamin B6), # 30 tab(s), 0 Refill(s), Start: 04/24/21 8:55:00 AKST, Pharmacy: [facility], Prescription Type: Internal Tank Systems Maintainer, 178, cm, 03/03/21 11:20:00 AKST, He... Start Date: 04/24/21 Status: Ordered Multivitamins 1, Oral, Daily, 0 Refill(s), Start: 01/24/21 14:03:00 AKDT, Prescription Type: Internal Tank Systems Maintainer Start Date: 01/24/21 Status: Ordered Vitamin B6 50 mg oral tablet = 1 tab(s), Oral, TID, PRN: Nausea, Take with doxylamine, # 180 tab(s), 0 Refill(s), Start: 04/24/21 8:55:00 AKST, Pharmacy: [facility], Prescription Type: Internal Tank Systems Maintainer, 178, cm, 03/03/21 11:20:00 AKST, Height/Length Dosing... Start Date: 04/24/21 Status: Ordered Vitamin D3 25 mcg, Oral, Daily, 0 Refill(s), Start: 01/24/21 14:03:00 AKDT, Prescription Type: Internal Tank Systems Maintainer Start Date: 01/24/21 Status: Ordered Problem List Condition Effective Dates Status Health Status Inform ant Anxiety disorder(Confirmed) Active AMA (advanced maternal age) primigravida 35+(Confirmed) Active Exercise-induced asthma(Confirmed) Active Maternal family history of dementia(Confirmed) Active Family history of malignant melanoma of skin(Confirmed) Active (Confirmed) 02/27/21 Active Diagnosis Diagnosis Type Effective Dates Health Status Clinical Service Informant Discharge Diagnosis 05/17/21 Abnormal placental ultrasound Discharge Diagnosis 05/17/21 AMA (advanced maternal age) primigravida 35+ Discharge Diagnosis 05/17/21 Vital Signs Most recent to oldest [Reference Range]: 1 Temperature Temporal Artery [97.3-100.6 DegF] 97.8 DegF (05/17/21 3:56 PM) Peripheral Pulse Rate [60-100 bpm] 74 bp m (05/17/21 3:56 PM) Respiratory Rate [14-20 br/min] 16 br/mi n (05/17/21 3:56 PM) Blood Pressure [90-140/60-90 mmHg] 110/6 8mmHg (05/17/21 3:56 PM) SpO2 99 % (05/17/21 3:56 PM) Social History Social History Type Response Tobacco Tobacco Use: Denies tobacco use. 1 Sex Female 1in past >3yr pt would spoke only at parties socially, from [phone]
--- OUTSIDE RECORDS SUMMARY | 2024-03-19 15:31 | XMS_ITS | Continuity of Care Document ---
Author Organization [facility] nt Address [address] [place] [address] [place] [address] Care Team Providers Care Recordak Operator Name Role Phone Mikayla James Primary Care Physician Encounter Date(s): 11/18/23 - 11/18/23 [facility] Out[facility] [address] [place] [address] [place] [phone] Encounter Diagnosis (Discharge Diagnosis) - 11/18/23 Skin lesion(Discharge Diagnosis) - 11/18/23 Anxiety disorder(Discharge Diagnosis) - 11/18/23 Discharge Disposition: Discharge Attending Physician: Mikayla James [...] IgG 11/18/23 * Type and Screen 11/18/23 Radiology* US OB 1st Trimester Single Gestation 11/18/23 * US OB Transvaginal 11/18/23 Immunizations Given and Recorded Vaccine Date [...] 2Result Comment: will get 2nd dose in [place] - in [facility] weeks (04/01/20) 3Result Comment: 2020-02-15: EMPLOYEE HEALTH, RISK & BENEFITS DISCUSSED Medications Multivitamins 1, Oral, Daily, 0 Refill(s), Start: 01/24/21 2:03:00 PM AKDT, Prescription Type: Internal Help Desk Manager Start Date: 01/24/21 Status: Ordered sertraline 25 mg oral tablet = 1 tab(s), Oral, Daily, # 90 tab(s), 4 Refill(s), Start: 05/30/23 12:56:00 PM AKST, Pharmacy: [facility], Prescription Type: Internal Help Desk Manager, 178, cm, 09/17/22 13:29:00 AKDT,Height/Length Dosing, 87, kg, 09/17/22 13:29:00 AKDT, Weight Dosing Start Date: 05/30/23 Status: Ordered Vitamin D3 25 mcg, Oral, Daily, 0 Refill(s), Start: 01/24/21 2:03:00 PM AKDT, Prescription Type: Internal Help Desk Manager Start Date: 01/24/21 Status: Ordered Problem List Condition Confirmation Course Effective Dates Status H ealth Status Informant Anxiety disorder Confirmed Active AMA (advanced maternal age) primigravida 35+ Confirmed Active Exercise-induced asthma Confirmed Active Maternal family history of dementia Confirmed Active Family history of malignant melanoma of skin Confirmed Active Circumvallate placenta Confirmed Active Diagnosis Diagnosis Type Effective Dates Health Status Cl inical Service Informant Discharge Diagnosis 11/18/23 Anxiety disorder Discharge Diagnosis 11/18/23 Skin lesion Discharge Diagnosis 11/18/23 Results Laboratory List Name Date Beta hCG Qualitative Urine 11/18/23 Most recent to oldest [Reference Range]: 1 UR HCG Qualitative [NEGATIVE-NEGATIVE] P ositive 1 *ABN* (11/18/23 4:21 PM) 1Result Comment: Negative results are expected in healthy non- women. However, urine samplescollected after consumption of a large amount of fluid may report false negative hCG results, particularly within the first 10 days after conception. Moreover, in rare occasions, very high levels of hCG may cause false negative test results. Serum hCG should be considered if the patient reports discordant results of home hCG testing, or otherwise if clinically indicated. Vital Signs Most recent to oldest [Reference Range]: 1 Temperature Temporal Artery [97.3-100.6 DegF] 98.3 DegF (11/18/23 4:08 PM) Peripheral Pulse Rate [60-100 bpm] 73 bp m (11/18/23 4:08 PM) Respiratory Rate [14-20 br/min] 16 br/mi n (11/18/23 4:08 PM) Blood Pressure [90-140/60-90 mmHg] 112/7 6mmHg (11/18/23 4:08 PM) Mean Arterial Pressure, Cuff [59-90 mmHg ] 88 mmHg (11/18/23 4:08 PM) SpO2 100 % (11/18/23 4:08 PM) Height/Length Dosing 178 cm (11/18/23 4:08 PM) Height/Length Measured 178 cm (11/18/23 4:08 PM) Weight Measured 85.7 kg (11/18/23 4:08 PM) Weight Dosing 85.7 kg (11/18/23 4:08 PM) Body Mass Index Measured 27.05 kg/m2 (11/18/23 4:08 PM) Social History Social History Type Response Tobacco Tobacco Use: Denies tobacco use. 1 Sex Female 1in past >3yr pt would spoke only at parties socially, from [phone] Patient Care team information Care Team Personnel Name: Mikayla James MD Position: Rural Provider ([facility]) Member Role: Primary Care Provider Address: Address: [address] [address]- [place] Care Team Related Persons Name: EARNEST HEREDIA Address: Home [place] Name: EARNEST HEREDIA Address: Home [address] [place] [address] Name: MANJEET ARIAS Address: [address] [address] Address: Home [address] [place] [address] Address: Mailing [address] [place] [address]
--- OUTSIDE RECORDS SUMMARY | 2024-03-19 15:31 | XMS_ITS | Continuity of Care Document ---
Author Organization [facility] nt Address [address] [place] [address] Care Team Providers Care Piston Maker Name Role Phone Mikayla James Primary Care Physician Encounter Date(s): 06/14/21 - 06/14/21 [facility] Outpatient [address] [place] [address] Discharge Disposition: Discharge Attending Physician: Mikayla James MD Referring Physician: Mikayla James MD Allergies, Adverse Reactions, Alerts No Known Allergies Assessment and Plan Diagnostic Tests Pending * COVID-19 PCR (In-House) 06/14/21 Future Scheduled Tests Laboratory* ALT 04/07/21 * [...] 1Result Comment: will get 2nd dose in [place] hometown, via [facility] - in 3 weeks (04/01/20) 2Result Comment: 2020-02-15: EMPLOYEE HEALTH, RISK & BENEFITS DISCUSSED Medications doxylamine 25 mg oral tablet = 0.5 tab(s), Oral, TID, PRN: for nausea, take with pyridoxine (vitamin B6), # 30 tab(s), 1 Refill(s), Start: 06/07/21 14:49:00 AKDT, Pharmacy: [facility], Prescription Type:Internal Inbound Call Center Agent, 178, cm, 03/03/21 11:20:00 AKST,... Start Date: 06/07/21 Status: Ordered Multivitamins 1, Oral, Daily, 0 Refill(s), Start: 01/24/21 14:03:00 AKDT, Prescription Type: Internal Inbound Call Center Agent Start Date: 01/24/21 Status: Ordered Vitamin B6 50 mg oral tablet = 1 tab(s), Oral, TID, PRN: Nausea, Take with doxylamine, # 180 tab(s), 0 Refill(s), Start: 04/24/21 8:55:00 AKST, Pharmacy: [facility], Prescription Type: Internal Inbound Call Center Agent, 178, cm, 03/03/21 11:20:00 AKST, Height/Length Dosing... Start Date: 04/24/21 Status: Ordered Vitamin D3 25 mcg, Oral, Daily, 0 Refill(s), Start: 01/24/21 14:03:00 AKDT, Prescription Type: Internal Inbound Call Center Agent Start Date: 01/24/21 Status: Ordered Problem List [...] would spoke only at parties socially, from [phone]
--- OUTSIDE RECORDS SUMMARY | 2024-03-19 15:32 | XMS_ITS | Continuity of Care Document ---
Author Organization [facility] nt Address [address] [place] [address] Care Team Providers Care Boomboat Operator Name Role Phone Mikayla James Primary Care Physician Encounter Date(s): 11/07/21 - 11/07/21 [facility] Outpatient [address] [place] [address] Discharge Disposition: Discharge Attending Physician: Phil Hendrickson MD Allergies, Adverse Reactions, Alerts No Known [...] 2Result Comment: will get 2nd dose in [place],her hometown, via [facility] - in 3 weeks (04/01/20) 3Result Comment: 2020-02-15: EMPLOYEE HEALTH, RISK & BENEFITS DISCUSSED Medications famotidine 10 mg oral tablet = 1 tab(s), Oral, BID, # 60 tab(s), 1 Refill(s), Start: 10/11/21 13:59:00 AKDT, Pharmacy: [facility], Prescription Type: Internal Wellness Program Manager, 178, cm, 10/11/21 13:31:00 AKDT, Height/Length Dosing, 92.9, kg, 10/11/21 13:31:00 AKDT... Start Date: 10/11/21 Status: Ordered hydrOXYzine hydrochloride 10 mg oral tablet = 1 tab(s), Oral, QID, PRN: anxiety, # 30 tab(s), 0 Refill(s), Start: 07/11/21 11:25:00 AKDT, Pharmacy: [facility], Prescription Type: Internal Wellness Program Manager, Anxiety disorder, 178, cm, 06/21/21 16:51:00 AKDT, Height/Length Dosing,... Start Date: 07/11/21 Status: Ordered Multivitamins 1, Oral, Daily, 0 Refill(s), Start: 01/24/21 14:03:00 AKDT, Prescription Type: Internal Wellness Program Manager Start Date: 01/24/21 Status: Ordered Vitamin B6 50 mg oral tablet = 1 tab(s), Oral, TID, PRN: Nausea, Take with doxylamine, # 180 tab(s), 0 Refill(s), Start: 04/24/21 8:55:00 AKST, Pharmacy: [facility], Prescription Type: Internal Wellness Program Manager, 178, cm, 03/03/21 11:20:00 AKST, Height/Length Dosing... Start Date: 04/24/21 Status: Ordered Vitamin D3 25 mcg, Oral, Daily, 0 Refill(s), Start: 01/24/21 14:03:00 AKDT, Prescription Type: Internal Wellness Program Manager Start Date: 01/24/21 Status: Ordered ZyrTEC Daily, 0 Refill(s), Start: 09/12/21 15:07:00 AKDT, Prescription Type: Internal Wellness Program Manager Start Date: 09/12/21 Status: Ordered Problem [...] would spoke only at parties socially, from [phone] Care Team Care Team Personnel Name: Mikayla James MD Position: Rural Provider ([facility]) Member Role: Primary Care Provider Address: Address: [address] [place] [address] [place] Care Team Related Persons Name: EARNEST HEREDIA Address: Home [place] Name: EARNEST HEREDIA Address: Home [address] [place] [address] Name: MANJEET ARIAS Address: [facility] [address] [place] [address] Address: Home [address] [place] [address] Address: Mailing [facility] [address] [facility] [address]
--- OUTSIDE RECORDS SUMMARY | 2024-03-19 15:32 | XMS_ITS | Continuity of Care Document ---
Author Organization [facility] Address [address] [place] [address] Care Team Providers Care Case Management Coordinator Name Role Phone Mikayla James Primary Care Physician Encounter Date(s): 07/10/21 - 07/10/21 [facility] Outpatient [address] [place] [address] [place] [phone] Encounter Diagnosis Contact with and (suspected) exposure to COVID-19(Final) - Discharge Disposition: Discharge Attending Physician: Mikayla James [...] 1Result Comment: will get 2nd dose in [place], via [facility] - in 3 weeks (04/01/20) 2Result Comment: 2020-02-15: EMPLOYEE HEALTH, RISK & BENEFITS DISCUSSED Medications doxylamine 25 mg oral tablet = 0.5 tab(s), Oral, TID, PRN: for nausea, take with pyridoxine (vitamin B6), # 30 tab(s), 1 Refill(s), Start: 06/07/21 14:49:00 AKDT, Pharmacy: [facility], Prescription Type:Internal Acidizer Water Well, 178, cm, 03/03/21 11:20:00 AKST,... Start Date: 06/07/21 Status: Ordered Multivitamins 1, Oral, Daily, 0 Refill(s), Start: 01/24/21 14:03:00 AKDT, Prescription Type: Internal Acidizer Water Well Start Date: 01/24/21 Status: Ordered Vitamin B6 50 mg oral tablet = 1 tab(s), Oral, TID, PRN: Nausea, Take with doxylamine, # 180 tab(s), 0 Refill(s), Start: 04/24/21 8:55:00 AKST, Pharmacy: [facility], Prescription Type: Internal Acidizer Water Well, 178, cm, 03/03/21 11:20:00 AKST, Height/Length Dosing... Start Date: 04/24/21 Status: Ordered Vitamin D3 25 mcg, Oral, Daily, 0 Refill(s), Start: 01/24/21 14:03:00 AKDT, Prescription Type: Internal Acidizer Water Well Start Date: 01/24/21 Status: Ordered Problem List [...] would spoke only at parties socially, from [id number]
--- OUTSIDE RECORDS SUMMARY | 2024-03-19 15:32 | XMS_ITS | Continuity of Care Document ---
Author Organization [facility] Address [address] [place] [id number] Care Team Providers Care Child Care Giver Name Role Phone Mikayla James Primary Care Physician Encounter Date(s): 11/15/21 - 11/15/21 [facility] Outpatient [address] [place] [address] [place] [phone] Encounter Diagnosis (Discharge Diagnosis) - 11/15/21 Circumvallate placenta(Discharge Diagnosis) - 11/15/21 AMA (advanced maternal age) primigravida 35+(Discharge Diagnosis) - 11/15/21 Discharge Disposition: Discharge Attending Physician: Tammy Cho FNP, FUNMI Allergies, Adverse Reactions, Alerts No Known Allergies Assessment and Plan Extracted from: Title:[facility]: f/u ob Author:Tammy Cho F RESTORATION ECOLOGIST, DNP Date:11/15/21 1. GBS obtained today. Delivery- with Dr. Cuellar or Dr. Frederick - interested Circumcision- if boy would like circumcision Post delivery contraception- condoms Ordered: Group B Strep Culture 2. Circumvallate placenta Established with DATA PROCESSING OPERATOR in and previous workup and monitoring by [facility] Nancy showed stable. 3. AMA (advanced maternal age) primigravida 35+ antepartum monitoring (NST 2x/week and JACQUES weekly) began at 34 weeks or BPP weekly-u/s clinic next week so will obtain BPP-order placed. -Transfer of care at 38 weeks-has housing and apt with supervisor esters and emulsifiers established Has one more NST scheduled later this week before leaving for Point of Care Ultrasound (POCUS) images JACQUES calculated at 11.1 . No fluid pocket less than cm. Active FM and cardiac activity observed. NST showing good HR variability and no contractures. Plan face to face follow up after returns from delivery or RTC/call sooner if health status worsens [...] and/or coordinating the care of the patient. Diagnostic Tests Pending * Group B Strep Culture 11/15/21 Future Scheduled Tests Laboratory* ALT 04/07/21 * [...] Status Refusal Reason diphtheria/pertussis, acel/tetanus adult 1 6/21/22 Given SARS-CoV-2(C-19) mRNA (12y+ purple)-PFZ 12/23/20 G [...] 2Result Comment: will get 2nd dose in [place] hometown, via [facility] - in 3 weeks (04/01/20) 3Result Comment: 2020-02-15: EMPLOYEE HEALTH, RISK & BENEFITS DISCUSSED Medications famotidine 10 mg oral tablet = 1 tab(s), Oral, BID, # 60 tab(s), 1 Refill(s), Start: 10/11/21 13:59:00 AKDT, Pharmacy: [facility], Prescription Type: Internal Manager Retention, 178, cm, 10/11/21 13:31:00 AKDT, Height/Length Dosing, 92.9, kg, 10/11/21 13:31:00 AKDT... Start Date: 10/11/21 Status: Ordered hydrOXYzine hydrochloride 10 mg oral tablet = 1 tab(s), Oral, QID, PRN: anxiety, # 30 tab(s), 0 Refill(s), Start: 07/11/21 11:25:00 AKDT, Pharmacy: [facility], Prescription Type: Internal Manager Retention, Anxiety disorder, 178, cm, 06/21/21 16:51:00 AKDT, Height/Length Dosing,... Start Date: 07/11/21 Status: Ordered Multivitamins 1, Oral, Daily, 0 Refill(s), Start: 01/24/21 14:03:00 AKDT, Prescription Type: Internal Manager Retention Start Date: 01/24/21 Status: Ordered Vitamin B6 50 mg oral tablet = 1 tab(s), Oral, TID, PRN: Nausea, Take with doxylamine, # 180 tab(s), 0 Refill(s), Start: 04/24/21 8:55:00 AKST, Pharmacy: [facility], Prescription Type: Internal Manager Retention, 178, cm, 03/03/21 11:20:00 AKST, Height/Length Dosing... Start Date: 04/24/21 Status: Ordered Vitamin D3 25 mcg, Oral, Daily, 0 Refill(s), Start: 01/24/21 14:03:00 AKDT, Prescription Type: Internal Manager Retention Start Date: 01/24/21 Status: Ordered VPP diphenhydrAMINE 25 mg oral capsule = 1 cap(s), Oral, q6hr, PRN: Nausea/Vomiting (NPO), *Dispensed in [place]*, # 15 cap(s), 0 Refill(s), Start: 11/10/21 18:23:00 AKDT, Pharmacy: [facility], Prescription Type: [facility] [employer] Dispense, SARS-CoV-2 positive Nause... Start Date: 11/10/21 Status: Ordered ZyrTEC Daily, 0 Refill(s), Start: 09/12/21 15:07:00 AKDT, Prescription Type: Internal Manager Retention Start Date: 09/12/21 Status: Ordered Problem List [...] Health Status Clinical Service Informant Discharge Diagnosis 11/15/21 Circumvallate placenta Discharge Diagnosis 11/15/21 AMA (advanced maternal age) primigravida 35+ Discharge Diagnosis 11/15/21 Vital Signs Most recent to oldest [Reference Range]: 1 Temperature Temporal Artery [97.3-100.6 DegF] 97.7 DegF (11/15/21 11:05 AM) Peripheral Pulse Rate [60-100 bpm] 80 bp m (11/15/21 11:05 AM) Respiratory Rate [14-20 br/min] 16 br/mi n (11/15/21 11:05 AM) Blood Pressure [90-140/60-90 mmHg] 110/8 8mmHg (11/15/21 11:05 AM) Mean Arterial Pressure, Cuff [59-90 mmHg ] 95 mmHg *HI* (11/15/21 11:05 AM) SpO2 99 % (11/15/21 11:05 AM) Height/Length Dosing 178 cm (11/15/21 11:05 AM) Height/Length Measured 178 cm (11/15/21 11:05 AM) Weight Measured 95.7 kg (11/15/21 11:05 AM) Weight Dosing 95.7 kg (11/15/21 11:05 AM) Body Mass Index Measured 30.2 kg/m2 (11/15/21 11:05 AM) Social History Social History Type Response Tobacco Tobacco Use: Denies tobacco use. 1 Sex Female 1in past >3yr pt would spoke only at parties socially, from [id number] OB Documentation-Provider * Tammy Cho, PJ, DNP: PERFORM Event Display: OB Documentation-Provider Authored Date: Chief Complaint OB 37 w 1 d Para Information: ??:??1 ??Para Term:??0 ??Para :??0 ??Para Abortions:??0 ??Para Living:??0 BUTCH/EGA Gestational Age (EGA) and BUTCH? * Note: EGA calculated as of 11/15/2021 ?? BUTCH:??12/04/2021?EGA*:??37 weeks 2 days ?Type:??Initial?Method Date:??02/27/2021 ?Method:??Last Menstrual Period??(02/27/2021) ?Confirmation:??Confirmed ?Description:??-- ?Comments:??-- ?Entered by:??Teresa Brooks, RN on 04/14/2021? Other BUTCH Calculations for this : ?No additional BUTCH calculations have been recorded for this History of Present Illness Ms. Heredia is??a 35 yo female who is . Today gestation??37 wk and??2 days. BUTCH 12/04/2021. ?? Presents today for OB follow up to incluse NST and AFIs. Recovering from COVID and given monoclonalantibodies 11/10. Feels overall she has rebounded from this and felt the monoclonal antibodies helped significantly. Has not needed to take any acetaminophen for fever or body aches the past week.??Has noted increased GERD and has been taking Tums and ??famotidine. ?? Followed initially evaluated at [facility] for MFM for circumvallate placenta but she and baby havebeen stable.??Will be delivering in [place] with??Dr. Cuellar/Dr. Frdeerick in [place]. Plans to travel at 38 weeks to [place] and await delivery-leaving 11/20 where she will stay with friends both whichare RNs and one is a LD nurse! ?? Notes occasional abd cramping that resolves with position changes and urination- likely BH. Review of Systems Patient has vitamins and is compliant. Patient does not have scotoma or other visual disturbance. Patient does not have headache. Patient does not have nausea or vomiting. Patient does not have back pain. Patient does not have abdominal pain. Patient does not have contractions. Patient does not have [place] Feldman contractions. Patient does not have vaginal discharge present. Patient does not have vaginal bleeding. Patient does not have dysuria. Patient is having good movement. Patient does not have swelling in the legs/ankles/hands. Physical Exam Vitals & Measurements T:??97.7?F ??(Temporal Artery)?? HR:??80??(Peripheral)?? RR:??16?? BP:??110/88?? SpO2:??99%?? HT:??178??cm?? WT:??95.7??kg?? BMI:??30.2?? Visit Assessment EGA, per Visit: 37W 2D (11/15/21) Weight Measured: 95.7 kg (11/15/21) Fundal Height: 37 cm (11/15/21) Systolic Blood Pressure: 110 mmHg (11/15/21) Diastolic Blood Pressure: 88 (11/15/21) Mean Arterial Pressure, Cuff:??95 mmHg??High (11/15/21) Labor Signs/Symptoms: None (11/15/21) Baby A - Presenting Part: Vertex (11/15/21) GEN: Well developed well nourished??. Patient appears alert and oriented, in no apparent distress. HEENT: Normocephalic, atraumatic. NECK: Symmetrical and Supple without lymphadenopathy or masses. RESP: Lungs clear to auscultation bilaterally. Good air movement and chest expansion. HEART: Regular rate. Capillary refill <2 seconds. Radial pulses +2 bilaterally. ABD:FH 37cm. FHR 150's EXT: No clubbing, cyanosis or pedal edema. NEURO: No focal deficits noted.?? Equal strength and coordination noted bilaterally. PSYCH: Normal mood and affect. Good eye contact and engages easily. ?? 03/31/2021 U HCG Positive ?? 05/14/2021 HBsAg negative HIV non reactive HCV negative RPR negative gluc 94 Hgb A1c 4.7% Vitamin D 53.2 ABO (0) RH (Positive) CBC: wbc 7.5, H/H 13.4/37.2, PLT 308 UA : gluc neg, bili neg, ket neg, SG 1.025, Bld Neg, PH 5.5, Pro neg, Nit neg, leuk neg Chl/GC- negative Urine culture- no growth ? 05/17/2021 [id number]: negative for all testing??completed?06/21/2021 CMP: NA 134, K 3.5, Glu 122 (just ate), CA 9.6, Bun 11, Creat 0.6, ALKP 62, ALT 21, AST 21, Tbil 0.5, TP 6.9, eGFR 113 CBC wbc 10.8, H/H 12.9/35.7, PLT 302: ?? 08/15/2021: 2GTT: 1 Hr (95) 2HR (64) FBS 87 ? CBC: wbc 10.2, HH 10.2/12.9, PLT 313 ?? 09/12/2021: Tdap ? 05/17/2021 [facility] [place]:??per rad read: consistent with 12 weeks 0 days gestation. Large gestational sac showing echogenic structure suggestive of placenta which seems overly large compared to the size of the poles and there is echogenicity surrounding the large portion of this structure concerning??for subchorionic hemorrhage and possible abruption. ?? 05/24/2021 U/s [facility]??[place]: per rad read: u/s consistent with 12 [...] 05/24/[address] Patel at [facility] notes: recommend repeating evaluation??at 18 weeks gestation. Area of concern possible subchorionic collection. posterior placenta??appears to be developing circumvallate with slightly eccentric superior cord insertion. Small anterior retromembranous ech ogenic area may represent prior subchorionic hemorrhage or previously noted polyp. ?? 07/03/[address] Jorge gabriel [facility] notes: recommended repeating u/s in 8weeks to followup circumvallate placenta and for better visualization of face and heart which were not fully seen on u/s. U/s showed growth 61% and AC is at 55%. Placenta posterior and abnormal in appearance demonstrating folding of the lateral edges. Findings suspected to be that of circumvallate placenta.Uterine wall contraction was note don u/s. ?? 10/05/2021 u/s [facility] rad read: 32 w 4d. appropriate growth. Posterior placenta. CL 3.4. circumvallateplacenta unchanged. JACQUES 14.6 ?? 11/01/2021 u/s [facility] rad read: BPP: single fetus. ??cephalic position. Placenta located posteriorly. JACQUES 12.3. FHR 138 Assessment/Plan 1.?? GBS obtained today.? Delivery- with Dr. Cuellar or Dr. Frederick - interested Circumcision- if boy would like circumcision Post delivery contraception- condoms Ordered: Group B Strep Culture ?? 2.??Circumvallate placenta Established with DATA PROCESSING OPERATOR in and previous workup and monitoring by [facility] showed stable. ?? 3.??AMA (advanced maternal age) primigravida 35+ antepartum monitoring (NST 2x/week and JACQUES weekly) began at?? 34 weeks or BPP weekly-u/s clinic next week so will obtain BPP-order placed. -Transfer of care at 38 weeks-has housing and apt with supervisor esters and emulsifiers established ?? Has one more NST scheduled later this week before leaving for [place] ?? Point of Care Ultrasound (POCUS) images? JACQUES calculated at 11.1??.?? No fluid pocket less than cm.?? Active FM and cardiac activity observed.? NST showing good HR variability and no contractures. ?? Plan face to face follow up after returns from??delivery??or RTC/call sooner if health status worsens or [...] Oral, q6hr, PRN ZyrTEC, Daily Allergies NKA Gynecological History ?? [...] Name: Mikayla James MD Position: Rural Provider ([facility]) Member Role: Primary Care Provider Address: Address: [address], [place] [address] Care Team Related Persons Name: EARNEST HEREDIA Address: Home [address] [place] [address] Name: EARNEST HEREDIA Address: Home [place] Name: MANJEET ARIAS Address: [facility] [address] [place] [address] Address: Home [address] [place] [address] Address: Mailing [address] [place] [id number]
--- OUTSIDE RECORDS SUMMARY | 2024-03-19 15:32 | XMS_ITS | Continuity of Care Document ---
Author Organization [facility] Address [address] [place] [address] Care Team Providers Care Logistics Team Lead Name Role Phone Mikayla James Primary Care Physician Encounter Date(s): 02/27/24 - 02/27/24 [facility] Out[facility] [address] [place] [address] [place] [phone] Discharge Disposition: Discharge Attending Physician: Maria Luisa Genao MD Allergies, Adverse Reactions, Alerts No Known Allergies Assessment and Plan Future Scheduled Tests Laboratory* RPR, Quant 04/12/24 * CBC w/ Auto Diff 04/12/24 * POC Urinalysis 11/18/23 * 2HR Glucose Tolerance (GTT) 04/12/24 Radiology* US Lower Extremity Limited Non-Vascular Right 02/25/24 [...] 2Result Comment: will get 2nd dose in [place] hometown, via [facility] - in 3 weeks (04/01/20) 3Result Comment: 2020-02-15: EMPLOYEE HEALTH, RISK & BENEFITS DISCUSSED Medications albuterol 90 mcg/inh inhalation aerosol = 2 puff(s), INH, q6hr, PRN PRN Wheezing or Shortness of Breath, # 1 EA, 0 Refill(s), Start: 02/13/24 10:15:00 AM AKST, Pharmacy: [facility], Prescription Type: Internal PickUp, Exercise-induced asthma, 178, cm, 01/01/24 9:56:00 AKDT, Height/Length Dosing, 90.72, kg, 02/13/24 9:04:00 AKST, Weight Dosing Start Date: 02/13/24 Status: Ordered diphenhydrAMINE 25 mg oral capsule = 1 cap(s), Oral, q6hr, PRN: Nausea/Vomiting (NPO), Take 1-2 tablets every 6 hours., # 100 cap(s), 0 Refill(s), Start: 12/09/23 10:00:00 AM AKDT, Pharmacy: [facility], Prescription Type: Internal Cloth Measurer, Nausea and vomiting in , 178, cm, 12/09/23 8:51:00 AKDT, Height/Length Dosing, 85.7, kg, 11/18/23 16:08:00 AKDT, Weight Dosing Start Date: 12/09/23 Status: Ordered Multivitamins 1, Oral, Daily, 0 Refill(s), Start: 01/24/21 2:03:00 PM AKDT, Prescription Type: Internal Cloth Measurer Start Date: 01/24/21 Status: Ordered Senna-docusate 8.6 mg-50 mg oral tablet = 1 tab(s), Oral, Once a day (at bedtime), PRN PRN Constipation, # 12 tab(s), 0 Refill(s), Start: 01/01/24 11:51:00 AM AKDT, Pharmacy: [facility], Prescription Type: Internal Cloth Measurer, Nausea and vomiting in , 178, cm, 01/01/24 9:56:00 AKDT, Height/Length Dosing, 85.7, kg, 11/18/23 16:08:00 AKDT, Weight Dosing Start Date: 01/01/24 Status: Ordered sertraline 25 mg oral tablet = 1 tab(s), Oral, Daily, # 90 tab(s), 4 Refill(s), Start: 05/30/23 12:56:00 PM AKST, Pharmacy: [facility], Prescription Type: Internal Cloth Measurer, 178, cm, 09/17/22 13:29:00 AKDT,Height/Length Dosing, 87, kg, 09/17/22 13:29:00 AKDT, Weight Dosing Start Date: 05/30/23 Status: Ordered SPACER CHAMBER SPACER CHAMBER, See Instructions, Attach to inhaler and use for each dose for improved medication delivery to lungs, # 1 EA, 0 Refill(s), Pharmacy: [facility], Prescription Type: External Prescription, 178, cm, 01/01/24 9:56:00 AKDT, Height/Length Dosing, 90.72, kg, 02/13/24 9:04:00 AKST, Weight Dosing Start Date: 02/13/24 Status: Ordered spacer, chamber See Instructions, use with inhaler, # 1 EA, 0 Refill(s), Start: 02/13/24 9:32:00 AM AKST, Prescription Type: Internal Cloth Measurer, Exercise-induced asthma Start Date: 02/13/24 Status: Ordered Vitamin D3 25 mcg, Oral, Daily, 0 Refill(s), Start: 01/24/21 2:03:00 PM AKDT, Prescription Type: Internal Cloth Measurer Start Date: 01/24/21 Status: Ordered Zofran ODT 4 mg oral tablet, disintegrating 1 - 2 tab(s), Oral, TID, PRN: nausea and vomiting, # 30 tab(s), 1 Refill(s), Start: 02/13/24 9:39:00 AM AKST, Pharmacy: [facility], Prescription Type: Internal Cloth Measurer, Nausea Positive test, 178, cm, 01/01/24 9:56:00 [...] 10/14/23 Active Rt groin pain Confirmed Active Results Radiology Reports * Exam Date Time Procedure Performing Provider Status 02/27/24 12:27 PM US OB After 1st Trim tammi Single Gest Julisa Vazquez; Auth (Verified) Notes: (US OB After 1st Trimester Single Gest) Reason For Exam: Anatomy Ultrasound Report Patient Name: DYLON HEREDIA Patient : 1985 Referring Physician: Mikayla James Exam: US OB After 1st Trimester Single Gest Exam Reason: Anatomy Career And Transition Teacher: Catherine Solis, Rdms, Rdcs, Rvt Comparison: 12/25/2023 DATING LMP: 10/13/2023 Established BUTCH: 07/19/2024 Established EGA: 19w4d Ultrasound BUTCH: 07/20/2024 AUA: 19w3d BIOMETRY BPD: 4.60 cm Percentile: 64.89 HC: 17.19 Percentile: 51.76 AC: 15.02 Percentile: 68.04 FL: 3.07 cm Percentile: 40.54 EFW: 320 g Percentile: 63.24 FINDINGS Number: 1 Lie: Breech Heart Rate: 154 PLACENTA Placenta was assessed by transabdominal technique. Placenta Grade: 0 Placenta Previa: No Amniotic Fluid Index: 13.16 cm Q1: 3.42 cm Q2: 4.30 cm Q3: 1.64 cm Q4: 3.80 cm ANATOMICAL SURVEY Heart -Four-chamber View: Suboptimal -LVOT: Seen -RVOT: Seen -Cardiac [place]: 45.51 degrees -Pulmonary Veins: Seen -Aortic Arch: Seen -Ductal Arch: Seen -Cardiac Rhythm: Seen Umbilical Cord:seen -3V Cord: Yes -3 Vessel: Seen -Placental Cord Insertion: Seen -Abdominal Cord Insertion: Seen Abdominal wall: Seen Head Midline -Brain: Seen -Lateral Ventricles: Seen -Cerebellum: Seen -Cista Magna: Seen -Face: Seen -Eyes: Seen -Profile: Seen -Nose: Seen -Lips and Palate: Seen -Posterior Horn Lateral Ventricle Width: 9.47 mm -Cisterna Magna Length: 5.47 mm -Trans Cerebellar Diameter: 18.21 mm Neck: Seen Spine: Seen Skin: Seen Kidneys -Right: Seen -Left: Seen Bladder: Seen Thorax: Seen Diaphragm: Seen Gastrointestinal Tract: Seen -Stomach: Seen Genitalia: Not seen Extremities -Upper: Seen -Hands: Seen -Lower: Seen -Feet: Seen MATERNAL STRUCTURES UTERUS: Myometrium: Seen CERVIX: 3.35 cm IMPRESSION: 1. Single viable intrauterine at 19 weeks 4 days gestation, anterior placenta 2. Estimated weight of 320 grams (63%ile) 3. Suboptimal 4-chamber and 3 vessels trachea view as well as suboptimal imaging of all digits; allother anatomy visualized and normal to extent of view Reading Physician: Maria Luisa Genao MD Signed: 02/27/2024 9:17 PM Transcribed: 02/27/2024 12:28 PM Maria Luisa Genao MD Final Report Dictated by: Maria Luisa Genao MD Signed by: Maria Luisa Genao MD Signed (Electronic Signature): 02/27/2024 21:17 Transcribed by: [facility] Social History Social History Type Response Tobacco Tobacco Use: Denies tobacco use. 1 Sex Female 1in past >3yr pt would spoke only at parties socially, from [id number] Patient Care team information Care Team Personnel Name: Mikayla James MD Position: Rural Provider ([facility]) Member Role: Primary Care Provider Address: Address: [address] [address]- Care Team Related Persons Name: EARNEST HEREDIA Address: Home [address] [place] [address] Name: EARNEST HEREDIA Address: [facility] Name: MANJEET ARIAS Address: [address] [address] Address: Home [address] [place] [address] Address: Mailing [address] [place] [address]
--- OUTSIDE RECORDS SUMMARY | 2024-03-19 15:32 | XMS_ITS | Continuity of Care Document ---
Author Organization [facility] Address [address] [facility] [place] [address] Care Team Providers Care Nitro Worker Name Role Phone Mikayla James Primary Care Physician [phone] Encounter Date(s): 05/09/21 - 05/09/21 [facility] [address] [place] [address] Discharge Disposition: Discharge Attending Physician: Mikayla James MD Allergies, Adverse Reactions, Alerts No Known Allergies Assessment and Plan Diagnostic Tests Pending * Hemoglobin A1c 05/09/21 * Hepatitis B Surface Antigen 05/09/21 * Hepatitis C Antibody 05/09/21 * HIV 1/2 Ag/Ab Combo 05/09/21 * RPR, Quant 05/09/21 * Vitamin D 25 OH, Total 05/09/21 * [id number] Plus Core ESS SCA - No Sex 05/09/21 * CT/NG (Swab/Urine/PAP) 05/09/21 * Urine Culture 05/09/21 Future Scheduled Tests Laboratory* ALT 04/07/21 * ALT 07/06/21 * Hepatitis C Antibody 04/07/21 * Hepatitis C Antibody 07/06/21 * Urinalysis Macroscopic 02/15/21 * Urinalysis Microscopic 02/15/21 * HIV 1/2 Ag/Ab Combo 02/18/21 * HIV 1/2 Ag/Ab Combo 04/07/21 * HIV 1/2 Ag/Ab Combo 07/06/21 * COVID-19 05/11/20 * COVID-19 08/10/20 * COVID-19 PCR (In-House) 03/08/21 * COVID-19 PCR (In-House) 03/15/21 * COVID-19 PCR (In-House) 01/11/21 * COVID-19 PCR (In-House) 01/18/21 * COVID-19 PCR (In-House) 04/12/21 * COVID-19 PCR (In-House) 04/19/21 * COVID-19 PCR (In-House) 02/07/21 * COVID-19 PCR (In-House) 02/14/21 * COVID-19 PCR (In-House) 05/10/21 Radiology* US OB 1st Trimester Single Gestation [...] 1Result Comment: will get 2nd dose in [place] hometown, via [facility] - in 3 weeks (04/01/20) 2Result Comment: 2020-02-15: EMPLOYEE HEALTH, RISK & BENEFITS DISCUSSED Medications Ativan 1 mg oral tablet = 1 tab(s), Oral, BID, PRN: flight anxiety, # 6 tab(s), 0 Refill(s), Start: 03/02/21 11:51:00 AKST,Stop: 08/23/21 8:00:00 AKFITO, Pharmacy: [facility], Prescription Type: Internal Lawn Sprinkler Servicer, 178, cm, 02/15/21 15:47:00 AKST, Height... Start Date: 03/02/21 Stop Date: 08/23/21 Status: Ordered doxylamine 25 mg oral tablet = 0.5 tab(s), Oral, TID, PRN: for nausea, take with pyridoxine (vitamin B6), # 30 tab(s), 0 Refill(s), Start: 04/24/21 8:55:00 AKST, Pharmacy: [facility], Prescription Type: Internal Lawn Sprinkler Servicer, 178, cm, 03/03/21 11:20:00 AKST, He... Start Date: 04/24/21 Status: Ordered Multivitamins 1, Oral, Daily, 0 Refill(s), Start: 01/24/21 14:03:00 AKDT, Prescription Type: Internal Lawn Sprinkler Servicer Start Date: 01/24/21 Status: Ordered Vitamin B6 50 mg oral tablet = 1 tab(s), Oral, TID, PRN: Nausea, Take with doxylamine, # 180 tab(s), 0 Refill(s), Start: 04/24/21 8:55:00 AKST, Pharmacy: [facility], Prescription Type: Internal Lawn Sprinkler Servicer, 178, cm, 03/03/21 11:20:00 AKST, Height/Length Dosing... Start Date: 04/24/21 Status: Ordered Vitamin D3 25 mcg, Oral, Daily, 0 Refill(s), Start: 01/24/21 14:03:00 AKDT, Prescription Type: Internal Lawn Sprinkler Servicer Start Date: 01/24/21 Status: Ordered Problem List Condition Effective Dates Status Health Status Inform ant Anxiety disorder(Confirmed) Active Exercise-induced asthma(Confirmed) Active Family history of malignant melanoma of skin(Confirmed) Active (Confirmed) 02/27/21 Active Results Laboratory List Name Date Urinalysis with Reflex Microscopic CBC w/ Auto Diff 05/09/21 Glucose Random 05/09/21 Most recent to oldest [Reference Range]: 1 WBC [4.0-12.0 K/uL] 7.5 K/uL (05/09/21 9:48 AM) RBC [3.43-5.21 M/uL] 4.18 M/uL (05/09/21 9:48 AM) HGB [10.3-14.8 gm/dL] 13.4 gm/dL (05/09/21 9:48 AM) HCT [32.5-46.2 %] 37.2 % (05/09/21 9:48 AM) MCV [82.5-98.0 fL] 89.0 fL (05/09/21 9:48 AM) MCH [26.1-32.9 pg] 32.1 pg (05/09/21 9:48 AM) MCHC [30.7-34.9 gm/dL] 36.0 gm/dL *HI* (05/09/21 9:48 AM) RDW [11.8-16.4 %] 12.0 % (05/09/21 9:48 AM) MPV [7.9-13.3 fL] 9.4 fL (05/09/21 9:48 AM) Platelet Count [136.0-388.0 K/uL] 308.0 K/uL (05/09/21 9:48 AM) Neutrophils, Percentage: [49.1-76.9 %] 6 7.1 % (05/09/21 9:48 AM) Lymphocytes, Percentage: [13.9-44.4 %] 2 5.1 % (05/09/21 9:48 AM) Absolute Neutrophils: [2.4-7.5 K/uL] 5.0 K/uL (05/09/21 9:48 AM) Absolute Lymphocytes: [1.0-3.4 K/uL] 1.9 K/uL (05/09/21 9:48 AM) Specific [place] [1.005-1.030] 1.025 (05/09/21 9:49 AM) pH - Urine [5-8] 5.5 (05/09/21 9:49 AM) Leukocytes Esterase [NEGATIVE-NEGATIVE] Negative (05/09/21 9:49 AM) Nitrites [NEGATIVE-NEGATIVE] Negative (05/09/21 9:49 AM) Protein [NEGATIVE-NEGATIVE mg/dL] Negati ve mg/dL (05/09/21 9:49 AM) Ketones [NEGATIVE-NEGATIVE mg/dL] Negati ve mg/dL (05/09/21 9:49 AM) Urobilinogen [0.2-1.0 EU/dL] 0.2 E.U./dL EU/dL (05/09/21 9:49 AM) Bilirubin [NEGATIVE-NEGATIVE] Negative (05/09/21 9:49 AM) Blood [NEGATIVE-NEGATIVE] Negative (05/09/21 9:49 AM) COLOR - Urine [YELLOW] Yellow (05/09/21 9:49 AM) Glucose UA [NEGATIVE-NEGATIVE mg/dL] Neg ative mg/dL (05/09/21 9:49 AM) Mixed Cells % [4.7-13.3 %] 7.8 % (05/09/21 9:48 AM) Mixed Cells Absolute [0.3-1.1 K/uL] 0.6 K/uL (05/09/21 9:48 AM) Glucose WB [70-100 mg/dL] 94 mg/dL (05/09/21 9:48 AM) Urine Appearance [CLEAR] Clear (05/09/21 9:49 AM) Urine Source Clean Catch (05/09/21 9:49 AM) Social History Social History Type Response Tobacco Tobacco Use: Denies tobacco use. 1 Sex Female 1in past >3yr pt would spoke only at parties socially, from [id number]
--- OUTSIDE RECORDS SUMMARY | 2024-03-19 15:32 | XMS_ITS | Continuity of Care Document ---
Author Organization [facility] Address [address] [place] [address] Care Team Providers Care Feed Crusher Operator Name Role Phone Mikayla James Primary Care Physician Encounter Date(s): 05/17/21 - 05/17/21 [facility] Outpatient [address] [facility] [place] [address] Discharge Disposition: Discharge Attending Physician: Mikayla James [...] 1Result Comment: will get 2nd dose in [place], via [facility] - in 3 weeks (04/01/20) 2Result Comment: 2020-02-15: EMPLOYEE HEALTH, RISK & BENEFITS DISCUSSED Medications doxylamine 25 mg oral tablet = 0.5 tab(s), Oral, TID, PRN: for nausea, take with pyridoxine (vitamin B6), # 30 tab(s), 0 Refill(s), Start: 04/24/21 8:55:00 AKST, Pharmacy: [facility], Prescription Type: Internal Block Engraver, 178, cm, 03/03/21 11:20:[address]... Start Date: 04/24/21 Status: Ordered Multivitamins 1, Oral, Daily, 0 Refill(s), Start: 01/24/21 14:03:00 AKDT, Prescription Type: Internal Block Engraver Start Date: 01/24/21 Status: Ordered Vitamin B6 50 mg oral tablet = 1 tab(s), Oral, TID, PRN: Nausea, Take with doxylamine, # 180 tab(s), 0 Refill(s), Start: 04/24/21 8:55:00 AKST, Pharmacy: [facility], Prescription Type: Internal Block Engraver, 178, cm, 03/03/21 11:20:00 AKST, Height/Length Dosing... Start Date: 04/24/21 Status: Ordered Vitamin D3 25 mcg, Oral, Daily, 0 Refill(s), Start: 01/24/21 14:03:00 AKDT, Prescription Type: Internal Block Engraver Start Date: 01/24/21 Status: Ordered Problem List Condition Effective Dates Status Health Status Inform ant Anxiety disorder(Confirmed) Active AMA (advanced maternal age) primigravida 35+(Confirmed) Active Exercise-induced asthma(Confirmed) Active Maternal family history of dementia(Confirmed) Active Family history of malignant melanoma of skin(Confirmed) Active (Confirmed) 02/27/21 Active Results Radiology Reports * Exam Date Time Procedure Performing Provider Status 05/17/21 9:26 AM US OB Transvaginal Brenda Rinaldi; Elyssa boothe (Verified) Notes: (US OB Transvaginal) Reason For Exam: dating US Report Patient Name: DYLON HEREDIA Patient : 1985 Referring Physician: Mikayla Jaems Exam: US OB 1st Trimester Single Gestation, US OB Transvaginal Exam Reason: dating us First trimester OB ultrasound using both transabdominal and transvaginal imaging. Comparison: None. Findings: There is a single intrauterine gestational sac noted with a yolk sac measuring 6.0 mm geraldine pole with a crown-rump length 5.2 cm consistent with an 12 weeks, 0 days gestation and an estimated date of delivery of 11/29/2021. heart rate was measured at 160 bpm. Large gestationalsac shows echogenic structure suggestive of placenta which seems overly large compared to the size o f the pole and there is anechogenicity surrounding the large portion of this structure concerning for subchorionic hemorrhage and possible abruption. The right ovary has a normal appearance measuring 1.7 x 3.7 x 4.2 cm and the left ovary was not visualized. There is no free fluid or adnexal masses. Impression: Single intrauterine with an 12 weeks, 0 days gestation and an estimated date of delivery of 11/29/2021. Question partial abruption with subchorionic hemorrhage and further evaluation by maternal medicine is recommended. Radiologist: Leonora Rodriguez MD Signed: 05/17/2021 10:15 AM Transcribed: 05/17/2021 9:38 AM Leonora Rodriguez MD Final Report Dictated by: Leonora Rodriguez MD Signed by: Leonora Rodriguez MD Signed (Electronic Signature): 05/17/2021 10:15 Transcribed by: RUSLAN * Exam Date Time Procedure Performing Provider Status 05/17/21 9:25 AM US OB 1st Trimester Single Gestation Brenda Rinaldi; Auth (Verified) Notes: (US OB 1st Trimester Single Gestation) Reason For Exam: dating us Report Patient Name: DYLON HEREDIA Patient : 1985 Referring Physician: Mikayla James Exam: US OB 1st Trimester Single Gestation, US OB Transvaginal Exam Reason: dating us First trimester OB ultrasound using both transabdominal and transvaginal imaging. Comparison: None. Findings: There is a single intrauterine gestational sac noted with a yolk sac measuring 6.0 mm geraldine pole with a crown-rump length 5.2 cm consistent with an 12 weeks, 0 days gestation and an estimated date of delivery of 11/29/2021. heart rate was measured at 160 bpm. Large gestationalsac shows echogenic structure suggestive of placenta which seems overly large compared to the size o f the pole and there is anechogenicity surrounding the large portion of this structure concerning for subchorionic hemorrhage and possible abruption. The right ovary has a normal appearance measuring 1.7 x 3.7 x 4.2 cm and the left ovary was not visualized. There is no free fluid or adnexal masses. Impression: Single intrauterine with an 12 weeks, 0 days gestation and an estimated date of delivery of 11/29/2021. Question partial abruption with subchorionic hemorrhage and further evaluation by maternal medicine is recommended. Radiologist: Leonora Rodriguez MD Signed: 05/17/2021 10:15 AM Transcribed: 05/17/2021 9:38 AM Leonora Rodriguez MD Final Report Dictated by: Leonora Rodriguez MD Signed by: Leonora Rodriguez MD Signed (Electronic Signature): 05/17/2021 10:15 Transcribed by: RUSLAN Social History Social History Type Response Tobacco Tobacco Use: Denies tobacco use. 1 Sex Female 1in past >3yr pt would spoke only at parties socially, from [id number]
--- OUTSIDE RECORDS SUMMARY | 2024-03-19 15:32 | XMS_ITS | Continuity of Care Document ---
Author Organization [facility] Address [address] [place] [address] Care Team Providers Care Drying Room Supervisor Name Role Phone Mikayla James Primary Care Physician [phone] Encounter Date(s): 07/11/21 - 07/11/[address] [facility] Outpatient [address] [place] [address] [place] [phone] Encounter Diagnosis (Discharge Diagnosis) - 07/11/21 Anxiety disorder(Discharge Diagnosis) - 07/11/21 Circumvallate placenta(Discharge Diagnosis) - 07/11/21 Discharge Disposition: Discharge Attending Physician: Tammy Cho FNP, FUNMI Allergies, Adverse Reactions, Alerts No Known Allergies Assessment and Plan Extracted from: Title:[facility]: f/u ob Author:Tammy Cho F ED TECH, DNP Date:07/11/21 1. Due for 2GTT and cbc at 24-28 weeks-order placed Referral to [place] [facility] for pelvic floor strengthening in preparation for delivery Delivery- now considering delivery at [place]-once cleared by MFM will place referral if this is where she would like to deliver - interested Circumcision- need to discuss at next visit her thoughts Post delivery contraception- need to discuss at next visit Ordered: CBC w/ Auto Diff Office Visit Est 20-29 Min 2HR Glucose Tolerance (GTT) Referral 2. Circumvallate placenta Per MFM notes due to have repeat u/s in 8weeks and follow up She is feeling quite anxious regarding finding- given remote location [place] and now monthly [place] u/s clinic seems reasonable to repeat u/s in a month in [place] and then follow up with MFM with u/s at their facility Orders placed Ordered: Office Visit Est 20-29 Min Referral US OB Follow Up 3. Anxiety disorder Encourage her to consider more gentler exercise for anxiety and health walking or short bike ride rather than long hiking, camping, skiing as she does not feel quite up to that Consider biofeedback silver Hydroxyzine 10mg TID prn for anxiety Ordered: hydrOXYzine, = 1 tab(s), Oral, QID, PRN: anxiety, # 30 tab(s), 0 Refill(s), Start: 07/11/21 11:25:00 AKDT, Pharmacy: [facility], Prescription Type: Internal Conveyor Belt Operator, Anxiety disorder, 178, cm, 06/21/21 16:51:00 AKDT, Height/Length Dosing,... Office Visit Est 20-29 Min Plan face to face follow up in [address] Erika noland to help if she is OOT or RTC/call sooner if health status worsens or concerns develop. 30-39 minutes were spent performing the following activities [...] 1Result Comment: will get 2nd dose in [place] hometown, via [facility] - in 3 weeks (04/01/20) 2Result Comment: 2020-02-15: EMPLOYEE HEALTH, RISK & BENEFITS DISCUSSED Medications doxylamine 25 mg oral tablet = 0.5 tab(s), Oral, TID, PRN: for nausea, take with pyridoxine (vitamin B6), # 30 tab(s), 1 Refill(s), Start: 06/07/21 14:49:00 ELIANA, Pharmacy: [facility], Prescription Type:Internal Conveyor Belt Operator, 178, cm, 03/03/21 11:20:00 AKST,... Start Date: 06/07/21 Status: Ordered hydrOXYzine hydrochloride 10 mg oral tablet = 1 tab(s), Oral, QID, PRN: anxiety, # 30 tab(s), 0 Refill(s), Start: 07/11/21 11:25:00 AKDT, Pharmacy: [facility], Prescription Type: Internal Conveyor Belt Operator, Anxiety disorder, 178, cm, 06/21/21 16:51:00 AKDT, Height/Length Dosing,... Start Date: 07/11/21 Status: Ordered Multivitamins 1, Oral, Daily, 0 Refill(s), Start: 01/24/21 14:03:00 AKDT, Prescription Type: Internal Conveyor Belt Operator Start Date: 01/24/21 Status: Ordered Vitamin B6 50 mg oral tablet = 1 tab(s), Oral, TID, PRN: Nausea, Take with doxylamine, # 180 tab(s), 0 Refill(s), Start: 04/24/21 8:55:00 AKST, Pharmacy: [facility], Prescription Type: Internal Conveyor Belt Operator, 178, cm, 03/03/21 11:20:00 AKST, Height/Length Dosing... Start Date: 04/24/21 Status: Ordered Vitamin D3 25 mcg, Oral, Daily, 0 Refill(s), Start: 01/24/21 14:03:00 AKDT, Prescription Type: Internal Conveyor Belt Operator Start Date: 01/24/21 Status: Ordered Problem List Condition Effective Dates Status Health Status Inform ant Anxiety disorder(Confirmed) Active AMA (advanced maternal age) primigravida 35+(Confirmed) Active Exercise-induced asthma(Confirmed) Active Maternal family history of dementia(Confirmed) Active Family history of malignant melanoma of skin(Confirmed) Active (Confirmed) 02/27/21 Active Diagnosis Diagnosis Type Effective Dates Health Status Clinical Service Informant Anxiety disorder Discharge Diagnosis 07/11/21 Circumvallate placenta Discharge Diagnosis 07/11/21 Discharge Diagnosis 07/11/21 Vital Signs Most recent to oldest [Reference Range]: 1 2 3 Temperature Temporal Artery [97.3-100.6 DegF] 97.8 DegF (07/11/21 11:01 AM) Peripheral Pulse Rate [60-100 bpm] 87 bpm (07/11/21 11:01 AM) Respiratory Rate [14-20 br/min] 16 br/min (07/11/21 11:01 AM) Blood Pressure [90-140/60-90 mmHg] 119/76mmHg (07/11/21 1:24 PM) 115/77mmHg (07/11/21 1:15 PM) 128/83mmHg (07/11/21 11:01 AM) SpO2 98 % (07/11/21 11:01 AM) Social History Social History Type Response Tobacco Tobacco Use: Denies tobacco use. 1 Sex Female 1in past >3yr pt would spoke only at parties socially, from [id number]
--- OUTSIDE RECORDS SUMMARY | 2024-03-19 15:32 | XMS_ITS | Continuity of Care Document ---
Author Organization [facility] Address [address] [place] [address], [place] [address] Care Team Providers Care Cd Reactor Operator Name Role Phone Mikayla James Primary Care Physician Encounter Date(s): 10/24/21 - 10/24/21 [facility] [address] [place] [address] Discharge Disposition: Discharge Attending Physician: Unlisted, Provider Allergies, Adverse Reactions, Alerts No Known Allergies [...] PCR (In-House) 04/19/21 * COVID-19 PCR (In-House) 10/25/21 * COVID-19 PCR (In-House) 11/01/21 * COVID-19 [...] 2Result Comment: will get 2nd dose in [place] hometown, via [facility] - in 3 weeks (04/01/20) 3Result Comment: 2020-02-15: EMPLOYEE HEALTH, RISK & BENEFITS DISCUSSED Medications famotidine 10 mg oral tablet = 1 tab(s), Oral, BID, # 60 tab(s), 1 Refill(s), Start: 10/11/21 13:59:00 AKDT, Pharmacy: [facility], Prescription Type: Internal Freelance Court Reporter, 178, cm, 10/11/21 13:31:00 AKDT, Height/Length Dosing, 92.9, kg, 10/11/21 13:31:00 AKDT... Start Date: 10/11/21 Status: Ordered hydrOXYzine hydrochloride 10 mg oral tablet = 1 tab(s), Oral, QID, PRN: anxiety, # 30 tab(s), 0 Refill(s), Start: 07/11/21 11:25:00 AKDT, Pharmacy: [facility], Prescription Type: Internal Freelance Court Reporter, Anxiety disorder, 178, cm, 06/21/21 16:51:00 AKDT, Height/Length Dosing,... Start Date: 07/11/21 Status: Ordered Multivitamins 1, Oral, Daily, 0 Refill(s), Start: 01/24/21 14:03:00 AKDT, Prescription Type: Internal Freelance Court Reporter Start Date: 01/24/21 Status: Ordered Vitamin B6 50 mg oral tablet = 1 tab(s), Oral, TID, PRN: Nausea, Take with doxylamine, # 180 tab(s), 0 Refill(s), Start: 04/24/21 8:55:00 AKST, Pharmacy: [facility], Prescription Type: Internal Freelance Court Reporter, 178, cm, 03/03/21 11:20:00 AKST, Height/Length Dosing... Start Date: 04/24/21 Status: Ordered Vitamin D3 25 mcg, Oral, Daily, 0 Refill(s), Start: 01/24/21 14:03:00 AKDT, Prescription Type: Internal Freelance Court Reporter Start Date: 01/24/21 Status: Ordered ZyrTEC Daily, 0 Refill(s), Start: 09/12/21 15:07:00 AKDT, Prescription Type: Internal Freelance Court Reporter Start Date: 09/12/21 Status: Ordered Problem List Condition Effective Dates Status Health Status Inform ant Anxiety disorder(Confirmed) Active AMA (advanced maternal age) primigravida 35+(Confirmed) Active Exercise-induced asthma(Confirmed) Active Maternal family history of dementia(Confirmed) Active Family history of malignant melanoma of skin(Confirmed) Active 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/21 Active Vital Signs Most recent to oldest [Reference Range]: 1 Temperature Tympanic [97.9-100.6 DegF] 9 8 DegF (10/24/21 11:00 AM) Peripheral Pulse Rate [60-100 bpm] 70 bp m (10/24/21 11:00 AM) Respiratory Rate [14-20 br/min] 18 br/mi n (10/24/21 11:00 AM) Blood Pressure [90-140/60-90 mmHg] 105/6 6mmHg (10/24/21 11:00 AM) SpO2 98 % (10/24/21 11:00 AM) O2 Sat probe location Fingers (10/24/21 11:00 AM) Social History Social History Type Response Tobacco Tobacco Use: Denies tobacco use. 1 Sex Female 1in past >3yr pt would spoke only at parties socially, from [id number] Care Team Care Team Personnel Name: Mikayla James MD Position: Rural Provider ([facility]) Member Role: Primary Care Provider Address: Address: [address] [address]- Care Team Related Persons Name: EARNEST HEREDIA Address: Home [address] [place] [address] Name: EARNEST HEREDIA Address: [facility] Name: MANJEET ARIAS Address: [address] [address] Address: Home [address] [place] [id number] Address: Mailing [address] [facility] [address]
--- OUTSIDE RECORDS SUMMARY | 2024-03-19 15:32 | XMS_ITS | Continuity of Care Document ---
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 Name Role Phone Mikayla James Primary Care Physician Encounter Date(s): 01/14/24 - 01/14/24 [facility] [address] [facility] [address] [place] [phone] Encounter Diagnosis Constipation(Discharge Diagnosis) - 01/14/24 Rt groin pain(Discharge Diagnosis) - 01/14/24 (Discharge Diagnosis) - 01/14/24 Nausea and vomiting in (Discharge Diagnosis) - 01/14/24 AMA (advanced maternal age) primigravida 35+(Discharge Diagnosis) - 01/14/24 Anxiety disorder(Discharge Diagnosis) - 01/14/24 Discharge Disposition: Discharge Attending Physician: Mikayla James MD Allergies, Adverse Reactions, Alerts No Known Allergies Assessment and Plan Future Scheduled Tests Laboratory* POC Urinalysis 11/18/23 Radiology* US OB After 1st Trimester Single Gest 01/14/24 * US Lower Extremity Limited Non-Vascular Right 01/14/24 Immunizations Given and Recorded Vaccine Date Status [...] 2Result Comment: will get 2nd dose in [place],her hometown, via [facility] - in 3 weeks (04/01/20) 3Result Comment: 2020-02-15: EMPLOYEE HEALTH, RISK & BENEFITS DISCUSSED Medications diphenhydrAMINE 25 mg oral capsule = 1 cap(s), Oral, q6hr, PRN: Nausea/Vomiting (NPO), Take 1-2 tablets every 6 hours., # 100 cap(s), 0 Refill(s), Start: 12/09/23 10:00:00 AM AKDT, Pharmacy: [facility], Prescription Type: Internal Children'S Literature Professor, Nausea and vomiting in , 178, cm, 12/09/23 8:51:00 AKDT, Height/Length Dosing, 85.7, kg, 11/18/23 16:08:00 AKDT, Weight Dosing Start Date: 12/09/23 Status: Ordered Multivitamins 1, Oral, Daily, 0 Refill(s), Start: 01/24/21 2:03:00 PM AKDT, Prescription Type: Internal Children'S Literature Professor Start Date: 01/24/21 Status: Ordered Senna-docusate 8.6 mg-50 mg oral tablet = 1 tab(s), Oral, Once a day (at bedtime), PRN PRN Constipation, # 12 tab(s), 0 Refill(s), Start: 01/01/24 11:51:00 AM AKDT, Pharmacy: [facility], Prescription Type: Internal Children'S Literature Professor, Nausea and vomiting in , 178, cm, 01/01/24 9:56:00 AKDT, Height/Length Dosing, 85.7, kg, 11/18/23 16:08:00 AKDT, Weight Dosing Start Date: 01/01/24 Status: Ordered sertraline 25 mg oral tablet = 1 tab(s), Oral, Daily, # 90 tab(s), 4 Refill(s), Start: 05/30/23 12:56:00 PM AKST, Pharmacy: [facility], Prescription Type: Internal Children'S Literature Professor, 178, cm, 09/17/22 13:29:00 AKDT,Height/Length Dosing, 87, kg, 09/17/22 13:29:00 AKDT, Weight Dosing Start Date: 05/30/23 Status: Ordered Vitamin D3 25 mcg, Oral, Daily, 0 Refill(s), Start: 01/24/21 2:03:00 PM AKDT, Prescription Type: Internal Children'S Literature Professor Start Date: 01/24/21 Status: Ordered Zofran ODT 4 mg oral tablet, disintegrating 1 - 2 tab(s), Oral, TID, PRN: nausea and vomiting, # 30 tab(s), 1 Refill(s), Start: 01/09/24 5:57:00 AM AKDT, Stop: 01/07/25 2:28:00 PM AKDT, Pharmacy: [facility], Prescription Type: Internal Children'S Literature Professor, Nausea Positive test, 178, cm, 01/01/24 9:56:00 AKDT, Height/Length Dosing, 85.7, kg, 11/18/23 16:08:00 AKDT, Weight Dosing Start Date: 01/09/24 Stop Date: 01/07/25 Status: Ordered Problem List Condition Confirmation Course [...] Effective Dates Health Status Clinical Service Informant Nausea and vomiting in Discharge Diagnosis 01/14/24 Non-Specified Discharge Diagnosis 01/14/24 Constipation Discharge Diagnosis 01/14/24 Rt groin pain Discharge Diagnosis 01/14/24 AMA (advanced maternal age) primigravida 35+ Discharge Diagnosis 01/14/24 Anxiety disorder Discharge Diagnosis 01/14/24 Vital Signs Most recent to oldest [Reference Range]: 1 Temperature Temporal Artery [97.3-100.6 DegF] 98.8 DegF (01/14/24 9:06 AM) Peripheral Pulse Rate [60-100 bpm] 74 bp m (01/14/24 9:06 AM) Respiratory Rate [14-20 br/min] 16 br/mi n (01/14/24 9:06 AM) Blood Pressure [90-140/60-90 mmHg] 106/7 1mmHg (01/14/24 9:06 AM) SpO2 98 % (01/14/24 9:06 AM) Height/Length Measured 178 cm (01/14/24 9:06 AM) Weight Measured 86.63 kg (01/14/24 9:06 AM) Weight Dosing 86.63 kg (01/14/24 9:06 AM) Body Mass Index Measured 27.34 kg/m2 (01/14/24 9:06 AM) Social History Social History Type Response Tobacco Tobacco Use: Denies tobacco use. 1 Sex Female 1in past >3yr pt would spoke only at parties socially, from [id number] Patient Care team information Care Team Personnel Name: Mikayla James MD Position: Rural Provider ([facility]) Member Role: Primary Care Provider Address: Address: [address] [address]- Care Team Related Persons Name: EARNEST HEREDIA Address: Home [address] [place] [address] Name: EARNEST HEREDIA Address: [facility] Name: MANJEET ARIAS Address: [address] [address] Address: Home [address] [place] [address] Address: Mailing [address] [facility] [address]
--- OUTSIDE RECORDS SUMMARY | 2024-03-19 15:32 | XMS_ITS | Continuity of Care Document ---
Author Organization [facility] Address [address] [place] [address] [place] [address] Care Team Providers Care School Traffic Supervisor Name Role Phone Mikayla James Primary Care Physician [phone] Encounter Date(s): 02/07/22 - 02/07/22 [facility] Outpatient [address] [facility] [place] [address] Encounter Diagnosis Pelvic floor dysfunction(Discharge Diagnosis) - 02/07/22 Cervical cancer screening(Discharge Diagnosis) - 02/07/22 anxiety(Discharge Diagnosis) - 02/07/22 Nipple pain(Discharge Diagnosis) - 02/07/22 Discharge Disposition: Discharge Attending Physician: Mikayla James MD Allergies, Adverse Reactions, Alerts No Known Allergies Assessment and Plan Extracted from: Title:[facility] Primary Care Follow up Note Author:Mikayla Abraham MD Date:02/07/22 1. anxiety Current dose of sertraline 25 mg daily. Initial [place] 21, today's was 13 showing significant improvement. No change in dosing today. Ordered: Office Visit Est 20-29 Min 2. Cervical cancer screening PAP ordered today; will manage per ASCCP guidelines. Ordered: Office Visit Est 20-29 Min Thinprep with HPV 3. Nipple pain Will presumptively treat for candidal infection B nipples. also treated. She is already sanitizing bottles, etc. Ordered: clotrimazole topical, = 1 silver, TOP, BID, # 28.35 gm, 0 Refill(s), Start: 02/07/22 12:30:00 AKST, Stop: 02/14/22 12:33:00 AKST, Pharmacy: [facility], Prescription Type: Internal Button Riveter, Nipple pain, 178, cm, 02/07/22 10:55:00 AKST, Height/Length Do... Office Visit Est 20-29 Min 4. Pelvic floor dysfunction Recommended continuation of pelvic floor PT. Provided encouragement regarding the progress that she has already made. Encouraged her to listen to her body as she reports noting that the pelvic pressure/bulging is more apparent on days when she exerts herself more. Discussed with patient that I do not know of any evidence for the treatment of pelvic floor dysfunction/pelvic prolapse with estrogen therapy. It is unclear what the initial indication for this prescription by Dr. Urbina was (perhaps vaginal dryness? which I don't appreciate on exam today). From my perspective, she does not need to continue it, though I recommended she call his office for further guidance on application if she would like to continue doing so. We did discuss that recent episode of spotting could certainly have been caused by abrupt discontinuation of topical estrogen therapy. Ordered: Office Visit Est 20-29 Min 20-29 minutes were spent performing the following [...] of the patient. Diagnostic Tests Pending * Thinprep with HPV 02/07/22 Future Scheduled Tests Laboratory* ALT 04/07/21 * [...] PCR (In-House) 03/15/21 * COVID-19 PCR (In-House) 06/14/21 * COVID-19 [...] 2Result Comment: will get 2nd dose in [place], via [facility] - in 3 weeks (04/01/20) 3Result Comment: 2020-02-15: EMPLOYEE HEALTH, RISK & BENEFITS DISCUSSED Medications clotrimazole 1% topical cream = 1 silver, TOP, BID, # 28.35 gm, 0 Refill(s), Start: 02/07/22 12:30:00 AKST, Stop: 02/14/22 12:33:00 AKST, Pharmacy: [facility], Prescription Type: Internal Button Riveter, Nipple pain, 178, cm, 02/07/22 10:55:00 AKST, Height/Length Do... Start Date: 02/07/22 Stop Date: 02/14/22 Status: Ordered Multivitamins 1, Oral, Daily, 0 Refill(s), Start: 01/24/21 14:03:00 AKDT, Prescription Type: Internal Button Riveter Start Date: 01/24/21 Status: Ordered sertraline 25 mg oral tablet = 1 tab(s), Oral, Daily, # 90 tab(s), 0 Refill(s), Start: 01/23/22 14:33:00 AKDT, Pharmacy: [facility], Prescription Type: Internal Button Riveter, 178, cm, 11/15/21 11:05:00 AKDT, Height/Length Dosing, 95.7, kg, 11/15/21 11:05:00 AK... Start Date: 01/23/22 Status: Ordered Vitamin D3 25 mcg, Oral, Daily, 0 Refill(s), Start: 01/24/21 14:03:00 AKDT, Prescription Type: Internal Button Riveter Start Date: 01/24/21 Status: Ordered Problem List Condition Confirmation Course Effective Dates Status H ealth Status Informant Anxiety disorder Confirmed Active AMA (advanced maternal age) primigravida 35+ Confirmed Active Exercise-induced asthma Confirmed Active Maternal family history of dementia Confirmed Active Family history of malignant melanoma of skin Confirmed Active Febrile Confirmed Active Headache Confirmed Active Circumvallate placenta Confirmed Active Diagnosis Diagnosis Type Effective Dates Health Status Clinical Service Informant Cervical cancer screening Discharge Diagnosis 02/07/22 Pelvic floor dysfunction Discharge Diagnosis 02/07/22 anxiety Discharge Diagnosis 02/07/22 Nipple pain Discharge Diagnosis 02/07/22 Non-Specified Vital Signs Most recent to oldest [Reference Range]: 1 Temperature Temporal Artery [97.3-100.6 DegF] 97.7 DegF (02/07/22 10:55 AM) Peripheral Pulse Rate [60-100 bpm] 78 bp m (02/07/22 10:55 AM) Respiratory Rate [14-20 br/min] 16 br/mi n (02/07/22 10:55 AM) Blood Pressure [90-140/60-90 mmHg] 120/7 8mmHg (02/07/22 10:55 AM) Mean Arterial Pressure, Cuff [59-90 mmHg ] 92 mmHg *HI* (02/07/22 10:55 AM) SpO2 100 % (02/07/22 10:55 AM) Height/Length Dosing 178 cm (02/07/22 10:55 AM) Height/Length Measured 178 cm (02/07/22 10:55 AM) Weight Measured 90.7 kg (02/07/22 10:55 AM) Weight Dosing 90.7 kg (02/07/22 10:55 AM) Body Mass Index Measured 28.63 kg/m2 (02/07/22 10:55 AM) Social History Social History Type Response Tobacco Tobacco Use: Denies tobacco use. 1 Sex Female 1in past >3yr pt would spoke only at parties socially, from [id number] Primary Care Provider Note * Mikayla James MD: PERFORM Event Display: Primary Care Provider Note Authored Date: [id number] Chief Complaint Pt here to f/u . Subjective Here for exam.?? Needs Pap,??as last Pap was in 2016. ??Recently saw [facility] CARRIAGE OPERATOR??for formal assessment of pelvic prolapse.?? Please see??documentation by Dr. Urbina who notes??very mild posterior??bulge.?? He recommended??pelvic floor therapy, which patient has been compliant with??and plans to continue.?? Patient reports??episode of mild vaginal spotting that lasted 3 to 4 days shortly after the discontinuation??of topical??estrogen therapy that was??prescribed by Dr. Urbina (unclear on reason for rx--possible vaginal dryness).?? Not yet sexually active. Objective Vitals & Measurements T:??97.7?F ??(Temporal Artery)?? HR:??78??(Peripheral)?? RR:??16?? BP:??120/78?? SpO2:??100%?? HT:??178??cm?? WT:??90.7??kg?? BMI:??28.63?? Physical Exam GENERAL: Alert and Oriented x 3, and in No Acute Distress. PELVIC: Normal external genitalia.?? No obvious scarring or scar tissue. ??Normal vaginal wall.?? No atrophy. Cervical os well visualized without lesions or abnormal discharge.?? Very minimal posterior bulge with prolonged??Valsalva noted, no marija prolapse. Assessment/Plan 1.?? anxiety Current dose of sertraline 25 mg daily. Initial??[place]??21, today's was 13 showing significant improvement.?? No change in dosing today. Ordered: Office Visit Est 20-29 Min ?? 2.??Cervical cancer screening PAP ordered today; will manage per ASCCP guidelines. Ordered: Office Visit Est 20-29 Min Thinprep with HPV ?? 3.??Nipple pain Will presumptively treat for candidal infection B nipples.?? Infant also treated.?? She is already sanitizing bottles, etc. Ordered: clotrimazole topical, = 1 silver, TOP, BID, # 28.35 gm, 0 Refill(s), Start: 02/07/22 12:30:00 AKST, Stop: 02/14/22 12:33:00 AKST, Pharmacy: [facility], Prescription Type: Internal Button Riveter, Nipple pain, 178, cm, 02/07/22 10:55:00 AKST, Height/Length Do... Office Visit Est 20-29 Min ?? 4.??Pelvic floor dysfunction Recommended continuation of pelvic floor PT.?? Provided encouragement regarding the progress that??she has already made.?? Encouraged her to listen to her body??as she??reports noting that the pelvicpressure/bulging is more apparent on days when she??exerts herself??more. Discussed with patient that??I do not know of any??evidence??for the treatment of??pelvic floor dysfunction/pelvic prolapse with estrogen therapy.?? It is unclear??what the initial??indication for this prescription by Dr. Urbina??was (perhaps vaginal dryness? which I don't appreciate on exam today).?? From my perspective, she does not need to continue it, though I recommended she call his office??for further guidance on application if she would like to continue doing so.?? We did discuss that??recent episode of spotting??could certainly have been caused by??abrupt discontinuation of topicalestrogen therapy. Ordered: Office Visit Est 20-29 Min ?? 20-29 minutes were spent performing the [...] and/or coordinating the care of the patient.? Problem List/Past Medical History Ongoing AMA (advanced maternal age) primigravida 35+ Anxiety disorder Circumvallate placenta Exercise-induced asthma Family history of malignant melanoma of skin Febrile Headache Maternal family history of dementia Historical Dysuria Nausea Medications clotrimazole 1% topical cream, 1 silver, TOP, BID Multivitamins, 1, Oral, Daily sertraline 25 mg oral tablet, 25 mg= 1 tab(s), Oral, Daily Vitamin D3, 25 mcg, Oral, Daily Allergies NKA Mikayla James MD Patient Care team information Care Team Personnel Name: Mikayla James MD Position: Rural Provider ([facility]) Member Role: Primary Care Provider Address: Address: [address] [address]- Care Team Related Persons Name: EARNEST HEREDIA Address: Home [address] [place] [address] Name: EARNEST HEREDIA Address: Home [place] Name: MANJEET ARIAS Address: [address] [address] Address: Home [address] [place] [address] Address: Mailing [address] [place] [address]
--- OUTSIDE RECORDS SUMMARY | 2024-03-19 15:32 | XMS_ITS | Continuity of Care Document ---
Author Organization [facility] Address [address] [place] [address] Care Team Providers Care Cell Biologist Name Role Phone Mikayla James Primary Care Physician Encounter Date(s): 04/26/21 - 04/26/21 [facility] Outpatient [address] [place] [address] Discharge Disposition: Discharge Attending Physician: Mikayla James MD Referring Physician: Mikayla James MD Allergies, Adverse Reactions, Alerts No Known Allergies Assessment and Plan Diagnostic Tests Pending * COVID-19 PCR (In-House) 04/26/21 Future Scheduled Tests Laboratory* ALT 04/07/21 * [...] PCR (In-House) 02/14/21 * COVID-19 PCR (In-House) 05/03/21 * COVID-19 PCR (In-House) 05/10/21 Radiology* US [...] 1Result Comment: will get 2nd dose in [place] hometown, via [facility] - in 3 weeks (04/01/20) 2Result Comment: 2020-02-15: EMPLOYEE HEALTH, RISK & BENEFITS DISCUSSED Medications Ativan 1 mg oral tablet = 1 tab(s), Oral, BID, PRN: flight anxiety, # 6 tab(s), 0 Refill(s), Start: 03/02/21 11:51:00 AKST,Stop: 08/23/21 8:00:00 AKDT, Pharmacy: [facility], Prescription Type: Internal Healthcare Management Consultant, 178, cm, 02/15/21 15:47:00 AKST, Height... Start Date: 03/02/21 Stop Date: 08/23/21 Status: Ordered doxylamine 25 mg oral tablet = 0.5 tab(s), Oral, TID, PRN: for nausea, take with pyridoxine (vitamin B6), # 30 tab(s), 0 Refill(s), Start: 04/24/21 8:55:00 AKST, Pharmacy: [facility], Prescription Type: Internal Healthcare Management Consultant, 178, cm, 03/03/21 11:20:00 AKST, He... Start Date: 04/24/21 Status: Ordered Multivitamins 1, Oral, Daily, 0 Refill(s), Start: 01/24/21 14:03:00 AKDT, Prescription Type: Internal Healthcare Management Consultant Start Date: 01/24/21 Status: Ordered Vitamin B6 50 mg oral tablet = 1 tab(s), Oral, TID, PRN: Nausea, Take with doxylamine, # 180 tab(s), 0 Refill(s), Start: 04/24/21 8:55:00 AKST, Pharmacy: [facility], Prescription Type: Internal Healthcare Management Consultant, 178, cm, 03/03/21 11:20:00 AKST, Height/Length Dosing... Start Date: 04/24/21 Status: Ordered Vitamin D3 25 mcg, Oral, Daily, 0 Refill(s), Start: 01/24/21 14:03:00 AKDT, Prescription Type: Internal Healthcare Management Consultant Start Date: 01/24/21 Status: Ordered Problem List Condition Effective Dates Status Health Status Inform ant Anxiety disorder(Confirmed) Active Exercise-induced asthma(Confirmed) Active Family history of malignant melanoma of skin(Confirmed) Active (Confirmed) 02/27/21 Active Social History Social History Type Response Tobacco Tobacco Use: Denies tobacco use. 1 Sex Female 1in past >3yr pt would spoke only at parties socially, from [id number]
--- OUTSIDE RECORDS SUMMARY | 2024-03-19 15:32 | XMS_ITS | Continuity of Care Document ---
Author Organization [facility] Address [address] [place] [address] Care Team Providers Care Ceramic Maker Demonstrator Name Role Phone Mikayla James Primary Care Physician Encounter Date(s): 06/28/21 - 06/28/21 [facility] Outpatient [address] [place] [address] Discharge Disposition: Discharge Attending Physician: Mikayla James MD Referring Physician: Mikayla James MD Allergies, Adverse Reactions, Alerts No Known Allergies Assessment and Plan Diagnostic Tests Pending * COVID-19 PCR (In-House) 06/28/21 Future Scheduled Tests Laboratory* ALT 04/07/21 * [...] PCR (In-House) 01/18/21 * COVID-19 PCR (In-House) 07/05/21 * COVID-19 [...] 1Result Comment: will get 2nd dose in [place] hometown, via [facility] - in 3 weeks (04/01/20) 2Result Comment: 2020-02-15: EMPLOYEE HEALTH, RISK & BENEFITS DISCUSSED Medications doxylamine 25 mg oral tablet = 0.5 tab(s), Oral, TID, PRN: for nausea, take with pyridoxine (vitamin B6), # 30 tab(s), 1 Refill(s), Start: 06/07/21 14:49:00 AKDT, Pharmacy: [facility], Prescription Type:Internal Field Underwriter, 178, cm, 03/03/21 11:20:00 AKST,... Start Date: 06/07/21 Status: Ordered Multivitamins 1, Oral, Daily, 0 Refill(s), Start: 01/24/21 14:03:00 AKDT, Prescription Type: Internal Field Underwriter Start Date: 01/24/21 Status: Ordered Vitamin B6 50 mg oral tablet = 1 tab(s), Oral, TID, PRN: Nausea, Take with doxylamine, # 180 tab(s), 0 Refill(s), Start: 04/24/21 8:55:00 AKST, Pharmacy: [facility], Prescription Type: Internal Field Underwriter, 178, cm, 03/03/21 11:20:00 AKST, Height/Length Dosing... Start Date: 04/24/21 Status: Ordered Vitamin D3 25 mcg, Oral, Daily, 0 Refill(s), Start: 01/24/21 14:03:00 AKDT, Prescription Type: Internal Field Underwriter Start Date: 01/24/21 Status: Ordered Problem List [...] would spoke only at parties socially, from [id number]
--- OUTSIDE RECORDS SUMMARY | 2024-03-19 15:32 | XMS_ITS | Continuity of Care Document ---
Author Organization [facility] Address [address] [place] [address] Care Team Providers Care Hoof And Shoe Inspector Name Role Phone Mikayla James Primary Care Physician [phone] Encounter Date(s): 05/31/21 - 05/31/21 [facility] Outpatient [address] [place], [place] [address] Encounter Diagnosis Urinary symptom or sign(Discharge Diagnosis) - 05/31/21 Discharge Disposition: Discharge Attending Physician: Olena Burrell PA-C Allergies, Adverse Reactions, Alerts No Known Allergies Assessment and Plan Extracted from: Title:[facility] urinary symptoms Author:David Burrell PA-C Date:05/31/21 1. Urinary symptom or sign UA in clinic is not consistent with UTI, symptoms are atypical for UTI In follow-up several hour later as she reports resolution of her symptoms Ordered: Office Visit Est 10-19 Min Urinalysis with Reflex Microscopic Future Scheduled Tests Laboratory* ALT 04/07/21 * [...] 1Result Comment: will get 2nd dose in [place], via [facility] - in 3 weeks (04/01/20) 2Result Comment: 2020-02-15: EMPLOYEE HEALTH, RISK & BENEFITS DISCUSSED Medications doxylamine 25 mg oral tablet = 0.5 tab(s), Oral, TID, PRN: for nausea, take with pyridoxine (vitamin B6), # 30 tab(s), 0 Refill(s), Start: 04/24/21 8:55:00 MACIEL, Pharmacy: [facility], Prescription Type: Internal Emergency Generator Mechanic, 178, cm, 03/03/21 11:20:[address] Start Date: 04/24/21 Status: Ordered Multivitamins 1, Oral, Daily, 0 Refill(s), Start: 01/24/21 14:03:00 AKFITO, Prescription Type: Internal Emergency Generator Mechanic Start Date: 01/24/21 Status: Ordered Vitamin B6 50 mg oral tablet = 1 tab(s), Oral, TID, PRN: Nausea, Take with doxylamine, # 180 tab(s), 0 Refill(s), Start: 04/24/21 8:55:00 AKST, Pharmacy: [facility], Prescription Type: Internal Emergency Generator Mechanic, 178, cm, 03/03/21 11:20:00 AKST, Height/Length Dosing... Start Date: 04/24/21 Status: Ordered Vitamin D3 25 mcg, Oral, Daily, 0 Refill(s), Start: 01/24/21 14:03:00 AKDT, Prescription Type: Internal Emergency Generator Mechanic Start Date: 01/24/21 Status: Ordered Problem List Condition Effective Dates Status Health Status Inform ant Anxiety disorder(Confirmed) Active AMA (advanced maternal age) primigravida 35+(Confirmed) Active Exercise-induced asthma(Confirmed) Active Maternal family history of dementia(Confirmed) Active Family history of malignant melanoma of skin(Confirmed) Active (Confirmed) 02/27/21 Active Diagnosis Diagnosis Type Effective Dates Health Status Cl inical Service Informant Urinary symptom or sign Discharge Diagnosis 05/31/21 Results Laboratory List Name Date Urinalysis with Reflex Microscopic 2 Most recent to oldest [Reference Range]: 1 Specific [place] [1.005-1.030] >=1.030 *ABN* (05/31/21 9:56 AM) pH - Urine [5-8] 5.5 (05/31/21 9:56 AM) Leukocytes Esterase [NEGATIVE-NEGATIVE] NEGATIVE (05/31/21 9:56 AM) Nitrites [NEGATIVE-NEGATIVE] NEGATIVE (05/31/21 9:56 AM) Protein [NEGATIVE-NEGATIVE mg/dL] NEGATI VE mg/dL (05/31/21 9:56 AM) Ketones [NEGATIVE-NEGATIVE mg/dL] 15 mg/ dL *ABN* (05/31/21 9:56 AM) Urobilinogen [0.2-1.0 EU/dL] 0.2 EU/dL (05/31/21 9:56 AM) Bilirubin [NEGATIVE-NEGATIVE] NEGATIVE (05/31/21 9:56 AM) Blood [NEGATIVE-NEGATIVE] NEGATIVE (05/31/21 9:56 AM) COLOR - Urine [YELLOW] YELLOW (05/31/21 9:56 AM) Glucose UA [NEGATIVE-NEGATIVE mg/dL] NEG ATIVE mg/dL (05/31/21 9:56 AM) Urine Appearance [CLEAR] CLEAR (05/31/21 9:56 AM) Urine Source Clean Catch (05/31/21 9:56 AM) Social History Social History Type Response Tobacco Tobacco Use: Denies tobacco use. 1 Sex Female 1in past >3yr pt would spoke only at parties socially, from [id number]
--- OUTSIDE RECORDS SUMMARY | 2024-03-19 15:32 | XMS_ITS | Continuity of Care Document ---
Author Organization [facility] Out[facility]ie nt Address [address] [place] [address] Care Team Providers Care Sexual Assault Response Coordinator Name Role Phone Mikayla James Primary Care Physician Encounter Date(s): 08/09/21 - 08/09/21 [facility] [place] [facility] [address] [facility] [place] [address] Discharge Disposition: Discharge Attending Physician: Mikayla James MD Referring Physician: Mikayla James MD Allergies, Adverse Reactions, Alerts No Known Allergies Assessment and Plan Diagnostic Tests Pending * COVID-19 PCR (In-House) 08/09/21 Future Scheduled Tests Laboratory* ALT 04/07/21 * [...] 1Result Comment: will get 2nd dose in [place], via [facility] - in 3 weeks (04/01/20) 2Result Comment: 2020-02-15: EMPLOYEE HEALTH, RISK & BENEFITS DISCUSSED Medications doxylamine 25 mg oral tablet = 0.5 tab(s), Oral, TID, PRN: for nausea, take with pyridoxine (vitamin B6), # 30 tab(s), 1 Refill(s), Start: 07/13/21 9:16:00 ELIANA, Pharmacy: [facility], Prescription Type: Internal Dip Tanker, 178, cm, 06/21/21 16:51:00 ELIANA, H... Start Date: 07/13/21 Status: Ordered hydrOXYzine hydrochloride 10 mg oral tablet = 1 tab(s), Oral, QID, PRN: anxiety, # 30 tab(s), 0 Refill(s), Start: 07/11/21 11:25:00 AKDT, Pharmacy: [facility], Prescription Type: Internal Dip Tanker, Anxiety disorder, 178, cm, 06/21/21 16:51:00 AKDT, Height/Length Dosing,... Start Date: 07/11/21 Status: Ordered Multivitamins 1, Oral, Daily, 0 Refill(s), Start: 01/24/21 14:03:00 AKDT, Prescription Type: Internal Dip Tanker Start Date: 01/24/21 Status: Ordered Vitamin B6 50 mg oral tablet = 1 tab(s), Oral, TID, PRN: Nausea, Take with doxylamine, # 180 tab(s), 0 Refill(s), Start: 04/24/21 8:55:00 AKST, Pharmacy: [facility], Prescription Type: Internal Dip Tanker, 178, cm, 03/03/21 11:20:00 AKST, Height/Length Dosing... Start Date: 04/24/21 Status: Ordered Vitamin D3 25 mcg, Oral, Daily, 0 Refill(s), Start: 01/24/21 14:03:00 AKDT, Prescription Type: Internal Dip Tanker Start Date: 01/24/21 Status: Ordered Problem List [...] would spoke only at parties socially, from [phone]
--- OUTSIDE RECORDS SUMMARY | 2024-03-19 15:32 | XMS_ITS | Continuity of Care Document ---
Author Organization [facility] Outpatie nt Address [address] [place] [address] Care Team Providers Care Group Director Experience Name Role Phone Mikayla James Primary Care Physician Encounter Date(s): 09/06/21 - 09/06/21 [facility] [place] [facility] [address] [place] [address] Discharge Disposition: Discharge Attending Physician: Mikayla James MD Referring Physician: Mikayla James MD Allergies, Adverse Reactions, Alerts No Known Allergies Assessment and Plan Diagnostic Tests Pending * COVID-19 PCR (In-House) 09/06/21 Future Scheduled Tests Laboratory* ALT 04/07/21 * [...] (In-House) 08/02/21 Radiology* US OB Follow Up 08/29/21 Immunizations Given and Recorded Vaccine Date Status [...] 1Result Comment: will get 2nd dose in [place]her hometown, via [facility] - in 3 weeks (04/01/20) 2Result Comment: 2020-02-15: EMPLOYEE HEALTH, RISK & BENEFITS DISCUSSED Medications doxylamine 25 mg oral tablet = 0.5 tab(s), Oral, TID, PRN: for nausea, take with pyridoxine (vitamin B6), # 30 tab(s), 1 Refill(s), Start: 07/13/21 9:16:00 ELIANA, Pharmacy: [facility] Prescription Type: Internal Heavy Equipment Operator/Paver, 178, cm, 06/21/21 16:51:00 ELIANA H... Start Date: 07/13/21 Status: Ordered hydrOXYzine hydrochloride 10 mg oral tablet = 1 tab(s), Oral, QID, PRN: anxiety, # 30 tab(s), 0 Refill(s), Start: 07/11/21 11:25:00 ELIANA, Pharmacy: [facility], Prescription Type: Internal Heavy Equipment Operator/Paver, Anxiety disorder, 178, cm, 06/21/21 16:51:00 AKDT, Height/Length Dosing,... Start Date: 07/11/21 Status: Ordered Multivitamins 1, Oral, Daily, 0 Refill(s), Start: 01/24/21 14:03:00 AKDT, Prescription Type: Internal Heavy Equipment Operator/Paver Start Date: 01/24/21 Status: Ordered Vitamin B6 50 mg oral tablet = 1 tab(s), Oral, TID, PRN: Nausea, Take with doxylamine, # 180 tab(s), 0 Refill(s), Start: 04/24/21 8:55:00 AKST, Pharmacy: [facility], Prescription Type: Internal Heavy Equipment Operator/Paver, 178, cm, 03/03/21 11:20:00 AKST, Height/Length Dosing... Start Date: 04/24/21 Status: Ordered Vitamin D3 25 mcg, Oral, Daily, 0 Refill(s), Start: 01/24/21 14:03:00 AKDT, Prescription Type: Internal Heavy Equipment Operator/Paver Start Date: 01/24/21 Status: Ordered Problem List [...] would spoke only at parties socially, from [phone] Care Team Personnel Name: Mikayla James MD Address: Address: [address], [place] [address]
--- OUTSIDE RECORDS SUMMARY | 2024-03-19 15:32 | XMS_ITS | Continuity of Care Document ---
Author Organization [facility] Address [address] [place] [id number] Care Team Providers Care Extractor Operator Solvent Process Name Role Phone Mikayla James Primary Care Physician Encounter Date(s): 10/11/21 - 10/11/21 [facility] Outpatient [address] [place] [address] [place] [phone] Encounter Diagnosis (Discharge Diagnosis) - 10/11/21 Circumvallate placenta(Discharge Diagnosis) - 10/11/21 AMA (advanced maternal age) primigravida 35+(Discharge Diagnosis) - 10/11/21 Discharge Disposition: Discharge Attending Physician: Mikayla James MD Allergies, Adverse Reactions, Alerts No Known Allergies Assessment and Plan Extracted from: Title:[facility] Return Author:Tara James MD Date:10/11/21 35 y/o at 32 weeks 2 day per LMP c/w first tri US, BUTCH 12/04/21 1. -Anemia screen and 2hr GTT wnl -O+ so Rhogam not indicated -Has been referred to PT for pelvic floor strengthening -Tdap UTD -Delivery Plans: [facility]. Had establish care appointment with director public Octavia. - Plans: Plans to breastfeed -Contraception Plans: Condoms -Circumcision Plans: Discussed, unsure if baby is a boy if they would want circumcision. 2. AMA (advanced maternal age) primigravida 35+ -Start antepartum monitoring (NST 2x/week and JACQUES weekly) at 34 weeks. -Transfer of care at 37 weeks. 3. Circumvallate placenta -Reviewed MFM consult note. -Reassurance provided that growth has been normal! -Patient understands associated risks. -F/u growth US q5-6 weeks Orders: famotidine, = 1 tab(s), Oral, BID, # 60 tab(s), 1 Refill(s), Start: 10/11/21 13:59:00 AKDT, Pharmacy: [facility], Prescription Type: Internal Sawmill Production Worker, 178, cm, 10/11/21 13:31:00 AKDT, Height/Length Dosing, 92.9, kg, 10/11/21 13:31:00 AKDT... COVID-19 PCR (In-House) 20-29 minutes were spent performing the following [...] 2Result Comment: will get 2nd dose in [place], via [facility] - in 3 weeks (04/01/20) 3Result Comment: 2020-02-15: EMPLOYEE HEALTH, RISK & BENEFITS DISCUSSED Medications famotidine 10 mg oral tablet = 1 tab(s), Oral, BID, # 60 tab(s), 1 Refill(s), Start: 10/11/21 13:59:00 AKDT, Pharmacy: [facility], Prescription Type: Internal Sawmill Production Worker, 178, cm, 10/11/21 13:31:00 AKDT, Height/Length Dosing, 92.9, kg, 10/11/21 13:31:00 AKDT... Start Date: 10/11/21 Status: Ordered hydrOXYzine hydrochloride 10 mg oral tablet = 1 tab(s), Oral, QID, PRN: anxiety, # 30 tab(s), 0 Refill(s), Start: 07/11/21 11:25:00 AKDT, Pharmacy: [facility], Prescription Type: Internal Sawmill Production Worker, Anxiety disorder, 178, cm, 06/21/21 16:51:00 AKDT, Height/Length Dosing,... Start Date: 07/11/21 Status: Ordered Multivitamins 1, Oral, Daily, 0 Refill(s), Start: 01/24/21 14:03:00 AKDT, Prescription Type: Internal Sawmill Production Worker Start Date: 01/24/21 Status: Ordered Vitamin B6 50 mg oral tablet = 1 tab(s), Oral, TID, PRN: Nausea, Take with doxylamine, # 180 tab(s), 0 Refill(s), Start: 04/24/21 8:55:00 AKST, Pharmacy: [facility], Prescription Type: Internal Sawmill Production Worker, 178, cm, 03/03/21 11:20:00 AKST, Height/Length Dosing... Start Date: 04/24/21 Status: Ordered Vitamin D3 25 mcg, Oral, Daily, 0 Refill(s), Start: 01/24/21 14:03:00 AKDT, Prescription Type: Internal Sawmill Production Worker Start Date: 01/24/21 Status: Ordered ZyrTEC Daily, 0 Refill(s), Start: 09/12/21 15:07:00 AKDT, Prescription Type: Internal Sawmill Production Worker Start Date: 09/12/21 Status: Ordered Problem List Condition Effective Dates Status Health Status Inform ant Anxiety disorder(Confirmed) Active AMA (advanced maternal age) primigravida 35+(Confirmed) Active Exercise-induced asthma(Confirmed) Active Maternal family history of dementia(Confirmed) Active Family history of malignant melanoma of skin(Confirmed) Active 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/21 Active Diagnosis Diagnosis Type Effective Dates Health Status Clinical Service Informant AMA (advanced maternal age) primigravida 35+ Discharge Diagnosis 10/11/21 Discharge Diagnosis 10/11/21 Circumvallate placenta Discharge Diagnosis 10/11/21 Vital Signs Most recent to oldest [Reference Range]: 1 Temperature Temporal Artery [97.3-100.6 DegF] 97.0 DegF *LOW* (10/11/21 1:31 PM) Peripheral Pulse Rate [60-100 bpm] 77 bp m (10/11/21 1:31 PM) Respiratory Rate [14-20 br/min] 16 br/mi n (10/11/21 1:31 PM) Blood Pressure [90-140/60-90 mmHg] 116/7 6mmHg (10/11/21 1:31 PM) Mean Arterial Pressure, Cuff [59-90 mmHg ] 89 mmHg (10/11/21 1:31 PM) SpO2 99 % (10/11/21 1:31 PM) Social History Social History Type Response Tobacco Tobacco Use: Denies tobacco use. 1 Sex Female 1in past >3yr pt would spoke only at parties socially, from [phone] Care Team Personnel Name: Mikayla James MD Address: Address: [address] [address]
--- OUTSIDE RECORDS SUMMARY | 2024-03-19 15:32 | XMS_ITS | Continuity of Care Document ---
Author Organization [facility] Out[facility] Address [address] [place], [place] [address] [address] Care Team Providers Care Resource Manager Name Role Phone Mikayla James Primary Care Physician [phone] Encounter Date(s): 10/05/21 - 10/08/21 [facility] Outpatient [address] [facility] [place] [address] [place] [phone] Encounter Diagnosis Suprapubic discomfort(Discharge Diagnosis) - 10/05/21 Discharge Disposition: Discharge Attending Physician: Laverne Encarnacion PA-C Allergies, Adverse Reactions, Alerts No Known Allergies Assessment and Plan Extracted from: Title:[facility] Pelvic irrita blity in Author:Laverne Encarnacion PA-C Date:10/05/21 1. Suprapubic discomfort Urinalysis notable for trace leukocyte Estrace otherwise unremarkable. No blood, nitrites, protein, ketones. Patient provided her own vaginal swab sample for wet prep. There were no clue cells, pseudohyphae, white blood cells or bacteria noted on wet prep exam. Low suspicion for UTI or bacterial vaginosis/candidiasis as cause for her pelvic discomfort/irritability. Urine culture was sent and is pending. Discussed work-up results with Dylon. Although urine is grossly unremarkable aside from trace leukocyte Estrace, offered to treat prophylactically for possible UTI with antibiotics. She would like to hold off and wait for urine culture results to initiate any medications. There is no evidence of bacterial vaginosis on wet prep. We will continue to monitor her symptoms. She is encouraged to continue pushing fluids, avoid excess sodium and notify myself or any other clinician if her symptoms persist or worsen. Ordered: POC Wet Prep Urinalysis with Reflex Microscopic Urine Culture Diagnostic Tests Pending * Urine Culture 10/05/21 * Urinalysis Microscopic 10/05/21 Future Scheduled Tests Laboratory* ALT 04/07/21 * [...] 2Result Comment: will get 2nd dose in [place], via [facility] - in 3 weeks (04/01/20) 3Result Comment: 2020-02-15: EMPLOYEE HEALTH, RISK & BENEFITS DISCUSSED Medications doxylamine 25 mg oral tablet = 0.5 tab(s), Oral, TID, PRN: for nausea, take with pyridoxine (vitamin B6), # 30 tab(s), 1 Refill(s), Start: 07/13/21 9:16:00 AKDT, Pharmacy: [facility], Prescription Type: Internal Internal Audit Consultant, 178, cm, 06/21/21 16:51:00 AKDT, H... Start Date: 07/13/21 Status: Ordered hydrOXYzine hydrochloride 10 mg oral tablet = 1 tab(s), Oral, QID, PRN: anxiety, # 30 tab(s), 0 Refill(s), Start: 07/11/21 11:25:00 AKDT, Pharmacy: [facility], Prescription Type: Internal Internal Audit Consultant, Anxiety disorder, 178, cm, 06/21/21 16:51:00 AKDT, Height/Length Dosing,... Start Date: 07/11/21 Status: Ordered Multivitamins 1, Oral, Daily, 0 Refill(s), Start: 01/24/21 14:03:00 AKDT, Prescription Type: Internal Internal Audit Consultant Start Date: 01/24/21 Status: Ordered Vitamin B6 50 mg oral tablet = 1 tab(s), Oral, TID, PRN: Nausea, Take with doxylamine, # 180 tab(s), 0 Refill(s), Start: 04/24/21 8:55:00 AKST, Pharmacy: [facility], Prescription Type: Internal Internal Audit Consultant, 178, cm, 03/03/21 11:20:00 AKST, Height/Length Dosing... Start Date: 04/24/21 Status: Ordered Vitamin D3 25 mcg, Oral, Daily, 0 Refill(s), Start: 01/24/21 14:03:00 AKDT, Prescription Type: Internal Internal Audit Consultant Start Date: 01/24/21 Status: Ordered ZyrTEC Daily, 0 Refill(s), Start: 09/12/21 15:07:00 AKDT, Prescription Type: Internal Internal Audit Consultant Start Date: 09/12/21 Status: Ordered Problem List Condition Effective Dates Status Health Status Inform ant Anxiety disorder(Confirmed) Active AMA (advanced maternal age) primigravida 35+(Confirmed) Active Exercise-induced asthma(Confirmed) Active Maternal family history of dementia(Confirmed) Active Family history of malignant melanoma of skin(Confirmed) Active 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/21 Active Diagnosis Diagnosis Type Effective Dates Health Status Clinical Service Informant Suprapubic discomfort Discharge Diagnosis 10/05/21 Non-Specified Results Laboratory List Name Date Urinalysis with Reflex Microscopic POC Wet Prep 10/05/21 Most recent to oldest [Reference Range]: 1 Specific [place] [1.005-1.030] 1.020 (10/05/21 2:58 PM) pH - Urine [5-8] 7.0 (10/05/21 2:58 PM) Leukocytes Esterase [NEGATIVE-NEGATIVE] SMALL *ABN* (10/05/21 2:58 PM) Nitrites [NEGATIVE-NEGATIVE] NEGATIVE (10/05/21 2:58 PM) Protein [NEGATIVE-NEGATIVE mg/dL] NEGATI VE mg/dL (10/05/21 2:58 PM) Ketones [NEGATIVE-NEGATIVE mg/dL] NEGATI VE mg/dL (10/05/21 2:58 PM) Urobilinogen [0.2-1.0 EU/dL] 0.2 EU/dL (10/05/21 2:58 PM) Bilirubin [NEGATIVE-NEGATIVE] NEGATIVE (10/05/21 2:58 PM) Blood [NEGATIVE-NEGATIVE] NEGATIVE (10/05/21 2:58 PM) Microscopic YES (10/05/21 2:58 PM) COLOR - Urine [YELLOW] DARK YELLOW *ABN* (10/05/21 2:58 PM) Glucose UA [NEGATIVE-NEGATIVE mg/dL] NEG ATIVE mg/dL (10/05/21 2:58 PM) Urine Appearance [CLEAR] SLIGHTLY CLOUDY *ABN* (10/05/21 2:58 PM) Urine Source Clean Catch (10/05/21 2:58 PM) POC JAEL YEAST [NO FUNGAL ELEMENTS] NO FU NGAL ELEMENTS (10/05/21 10:40 AM) POC WBC [None observed] None Observed (10/05/21 10:40 AM) POC RBC [None observed] None Observed (10/05/21 10:40 AM) POC BACTERIA [None observed] None observ ed (10/05/21 10:40 AM) POC CLUE CELLS [None Observed] None Obse rved (10/05/21 10:40 AM) POC YEAST [None observed] None Observed (10/05/21 10:40 AM) POC TRICH [None Observed] None Observed (10/05/21 10:40 AM) Social History Social History Type Response Tobacco Tobacco Use: Denies tobacco use. 1 Sex Female 1in past >3yr pt would spoke only at parties socially, from [phone] Care Team Personnel Name: Mikayla James MD Address: Address: [address] [address] [place]
--- OUTSIDE RECORDS SUMMARY | 2024-03-19 15:33 | XMS_ITS | Continuity of Care Document ---
Author Organization [facility] Out[facility] Address [address] [place] [address] Care Team Providers Care Mailing Specialist Name Role Phone Mikalya James Primary Care Physician Encounter Date(s): 04/24/21 - 04/24/21 [facility] Outpatient [address] [place] [address] [place] [phone] Encounter Diagnosis Nausea/vomiting in (Discharge Diagnosis) - 04/24/21 Round ligament pain(Discharge Diagnosis) - 04/24/21 (Discharge Diagnosis) - 04/24/21 Discharge Disposition: Discharge Attending Physician: Mikayla James MD Allergies, Adverse Reactions, Alerts No Known Allergies Assessment and Plan Extracted from: Title:[facility] Round Ligamen t Pain, Nausea in First Trimester Author:Mikayla James MD Date:04/24/21 35 y/o G1 at 8 weeks 0 days per LMP, no dating US yet presents for R sided discomfort 1. -POCUS today reveals IUP. Likelihood of concurrent ectopic is exceedingly low. -CRL matches LMP dates. -Poor image quality with transabdominal probe does not allow for definitive verification of cardiac activity. -Plan is for patient to proceed with routine labs at 10 weeks and formal dating ultrasound at next field clinic. 2. Nausea/vomiting in -Trial doxylamine and vitamin B6. Also discussed behavioral methods for managing nausea in the first trimester. Patient agrees to let me know if she needs further treatment. 3. Round ligament pain -Patient is advised that the likely cause of her R > L sided positional discomfort is round ligament pain. Orders: doxylamine, = 0.5 tab(s), Oral, TID, PRN: for nausea, take with pyridoxine (vitamin B6), # 30 tab(s), 0 Refill(s), Start: 04/24/21 8:55:00 AKST, Pharmacy: [facility], Prescription Type: Internal Academic Affairs Assistant, 178, cm, 03/03/21 11:20:00 AKST, He... pyridoxine, = 1 tab(s), Oral, TID, PRN: Nausea, Take with doxylamine, # 180 tab(s), 0 Refill(s), Start: 04/24/21 8:55:00 AKST, Pharmacy: [facility], Prescription Type: Internal Academic Affairs Assistant, 178, cm, 03/03/21 11:20:00 AKST, Height/Length Dosing... Urinalysis with Reflex Microscopic 20-29 minutes were spent performing the following [...] 1Result Comment: will get 2nd dose in [place] hometown, via [facility] - in 3 weeks (04/01/20) 2Result Comment: 2020-02-15: EMPLOYEE HEALTH, RISK & BENEFITS DISCUSSED Medications Ativan 1 mg oral tablet = 1 tab(s), Oral, BID, PRN: flight anxiety, # 6 tab(s), 0 Refill(s), Start: 03/02/21 11:51:00 AKST,Stop: 08/23/21 8:00:00 AKDT, Pharmacy: [facility], Prescription Type: Internal Academic Affairs Assistant, 178, cm, 02/15/21 15:47:00 AKST, Height... Start Date: 03/02/21 Stop Date: 08/23/21 Status: Ordered doxylamine 25 mg oral tablet = 0.5 tab(s), Oral, TID, PRN: for nausea, take with pyridoxine (vitamin B6), # 30 tab(s), 0 Refill(s), Start: 04/24/21 8:55:00 AKST, Pharmacy: [facility], Prescription Type: Internal Academic Affairs Assistant, 178, cm, 03/03/21 11:20:00 AKST, He... Start Date: 04/24/21 Status: Ordered Multivitamins 1, Oral, Daily, 0 Refill(s), Start: 01/24/21 14:03:00 AKDT, Prescription Type: Internal Academic Affairs Assistant Start Date: 01/24/21 Status: Ordered Vitamin B6 50 mg oral tablet = 1 tab(s), Oral, TID, PRN: Nausea, Take with doxylamine, # 180 tab(s), 0 Refill(s), Start: 04/24/21 8:55:00 AKST, Pharmacy: [facility], Prescription Type: Internal Academic Affairs Assistant, 178, cm, 03/03/21 11:20:00 AKST, Height/Length Dosing... Start Date: 04/24/21 Status: Ordered Vitamin D3 25 mcg, Oral, Daily, 0 Refill(s), Start: 01/24/21 14:03:00 AKDT, Prescription Type: Internal Academic Affairs Assistant Start Date: 01/24/21 Status: Ordered Problem List Condition Effective Dates Status Health Status Inform ant Anxiety disorder(Confirmed) Active Exercise-induced asthma(Confirmed) Active Family history of malignant melanoma of skin(Confirmed) Active (Confirmed) 02/27/21 Active Diagnosis Diagnosis Type Effective Dates Health Status Cl inical Service Informant Discharge Diagnosis 04/24/21 Nausea/vomiting in Discharge Diagnosis 04/24/21 Round ligament pain Discharge Diagnosis 04/24/21 Results Laboratory List Name Date Urinalysis with Reflex Microscopic Most recent to oldest [Reference Range]: 1 Specific [place] [1.005-1.030] 1.025 (04/24/21 8:43 AM) pH - Urine [5-8] 7.0 (04/24/21 8:43 AM) Leukocytes Esterase [NEGATIVE-NEGATIVE] Negative (04/24/21 8:43 AM) Nitrites [NEGATIVE-NEGATIVE] Negative (04/24/21 8:43 AM) Protein [NEGATIVE-NEGATIVE mg/dL] Negati ve mg/dL (04/24/21 8:43 AM) Ketones [NEGATIVE-NEGATIVE mg/dL] Negati ve mg/dL (04/24/21 8:43 AM) Urobilinogen [0.2-1.0 EU/dL] 0.2 E.U./dL EU/dL (04/24/21 8:43 AM) Bilirubin [NEGATIVE-NEGATIVE] Negative (04/24/21 8:43 AM) Blood [NEGATIVE-NEGATIVE] Negative (04/24/21 8:43 AM) COLOR - Urine [YELLOW] Yellow (04/24/21 8:43 AM) Glucose UA [NEGATIVE-NEGATIVE mg/dL] Neg ative mg/dL (04/24/21 8:43 AM) Urine Appearance [CLEAR] Slightly Cloudy *ABN* (04/24/21 8:43 AM) Urine Source Clean Catch (04/24/21 8:43 AM) Social History Social History Type Response Tobacco Tobacco Use: Denies tobacco use. 1 Sex Female 1in past >3yr pt would spoke only at parties socially, from [id number]
--- OUTSIDE RECORDS SUMMARY | 2024-03-19 15:33 | XMS_ITS | Continuity of Care Document ---
Author Organization [facility] Address [address] [place] [address] Care Team Providers Care Die Equipment Operator Name Role Phone Mikayla James Primary Care Physician [phone] Encounter Date(s): 05/03/21 - 05/03/21 [facility] Outpatient [address] [place] [address] Discharge Disposition: Discharge Attending Physician: Mikayla James MD Referring Physician: Mikayla James MD Allergies, Adverse Reactions, Alerts No Known Allergies Assessment and Plan Diagnostic Tests Pending * COVID-19 PCR (In-House) 05/03/21 Future Scheduled Tests Laboratory* ALT 04/07/21 * [...] 1Result Comment: will get 2nd dose in [place], via [facility] - in 3 weeks (04/01/20) 2Result Comment: 2020-02-15: EMPLOYEE HEALTH, RISK & BENEFITS DISCUSSED Medications Ativan 1 mg oral tablet = 1 tab(s), Oral, BID, PRN: flight anxiety, # 6 tab(s), 0 Refill(s), Start: 03/02/21 11:51:00 AKST,Stop: 08/23/21 8:00:00 AKDT, Pharmacy: [facility], Prescription Type: Internal Box Gluer, 178, cm, 02/15/21 15:47:00 AKST, Height... Start Date: 03/02/21 Stop Date: 08/23/21 Status: Ordered doxylamine 25 mg oral tablet = 0.5 tab(s), Oral, TID, PRN: for nausea, take with pyridoxine (vitamin B6), # 30 tab(s), 0 Refill(s), Start: 04/24/21 8:55:00 AKST, Pharmacy: [facility], Prescription Type: Internal Box Gluer, 178, cm, 03/03/21 11:20:00 AKST, He... Start Date: 04/24/21 Status: Ordered Multivitamins 1, Oral, Daily, 0 Refill(s), Start: 01/24/21 14:03:00 AKDT, Prescription Type: Internal Box Gluer Start Date: 01/24/21 Status: Ordered Vitamin B6 50 mg oral tablet = 1 tab(s), Oral, TID, PRN: Nausea, Take with doxylamine, # 180 tab(s), 0 Refill(s), Start: 04/24/21 8:55:00 AKST, Pharmacy: [facility], Prescription Type: Internal Box Gluer, 178, cm, 03/03/21 11:20:00 AKST, Height/Length Dosing... Start Date: 04/24/21 Status: Ordered Vitamin D3 25 mcg, Oral, Daily, 0 Refill(s), Start: 01/24/21 14:03:00 AKDT, Prescription Type: Internal Box Gluer Start Date: 01/24/21 Status: Ordered Problem List Condition Effective Dates Status Health Status Inform ant Anxiety disorder(Confirmed) Active Exercise-induced asthma(Confirmed) Active Family history of malignant melanoma of skin(Confirmed) Active (Confirmed) 02/27/21 Active Social History Social History Type Response Tobacco Tobacco Use: Denies tobacco use. 1 Sex Female 1in past >3yr pt would spoke only at parties socially, from [phone]
--- OUTSIDE RECORDS SUMMARY | 2024-03-19 15:33 | XMS_ITS | Continuity of Care Document ---
Author Organization [facility] Address [address] [place] [address] Care Team Providers Care Development Administrator Name Role Phone Mikayla James Primary Care Physician Encounter Date(s): 10/30/21 - 10/30/21 [facility] [address] [place] [address] [place] [phone] Encounter Diagnosis Contact with and (suspected) exposure [...] 2Result Comment: will get 2nd dose in [place], via [facility] - in 3 weeks (04/01/20) 3Result Comment: 2020-02-15: EMPLOYEE HEALTH, RISK & BENEFITS DISCUSSED Medications famotidine 10 mg oral tablet = 1 tab(s), Oral, BID, # 60 tab(s), 1 Refill(s), Start: 10/11/21 13:59:00 AKDT, Pharmacy: [facility], Prescription Type: Internal Market Garden Worker, 178, cm, 10/11/21 13:31:00 AKDT, Height/Length Dosing, 92.9, kg, 10/11/21 13:31:00 AKDT... Start Date: 10/11/21 Status: Ordered hydrOXYzine hydrochloride 10 mg oral tablet = 1 tab(s), Oral, QID, PRN: anxiety, # 30 tab(s), 0 Refill(s), Start: 07/11/21 11:25:00 AKDT, Pharmacy: [facility], Prescription Type: Internal Market Garden Worker, Anxiety disorder, 178, cm, 06/21/21 16:51:00 AKDT, Height/Length Dosing,... Start Date: 07/11/21 Status: Ordered Multivitamins 1, Oral, Daily, 0 Refill(s), Start: 01/24/21 14:03:00 AKDT, Prescription Type: Internal Market Garden Worker Start Date: 01/24/21 Status: Ordered Vitamin B6 50 mg oral tablet = 1 tab(s), Oral, TID, PRN: Nausea, Take with doxylamine, # 180 tab(s), 0 Refill(s), Start: 04/24/21 8:55:00 AKST, Pharmacy: [facility], Prescription Type: Internal Market Garden Worker, 178, cm, 03/03/21 11:20:00 AKST, Height/Length Dosing... Start Date: 04/24/21 Status: Ordered Vitamin D3 25 mcg, Oral, Daily, 0 Refill(s), Start: 01/24/21 14:03:00 AKDT, Prescription Type: Internal Market Garden Worker Start Date: 01/24/21 Status: Ordered ZyrTEC Daily, 0 Refill(s), Start: 09/12/21 15:07:00 AKDT, Prescription Type: Internal Market Garden Worker Start Date: 09/12/21 Status: Ordered Problem [...] would spoke only at parties socially, from [id number] Care Team Care Team Personnel Name: Mikayla James MD Position: Rural Provider ([facility]) Member Role: Primary Care Provider Address: Address: [address] [address]- Care Team Related Persons Name: EARNEST HEREDIA Address: Home [place] Name: EARNEST HEREDIA Address: Home [address] [place] [facility] [place] [address] Name: MANJEET ARIAS Address: [address] [address] Address: Home [address] [place] [id number] Address: Mailing [address] [place] [address]
--- OUTSIDE RECORDS SUMMARY | 2024-03-19 15:33 | XMS_ITS | Continuity of Care Document ---
Author Organization [facility] Address [address] [place] [address] Care Team Providers Care Decorating Equipment Setter Name Role Phone Mikayla James Primary Care Physician [phone] Encounter Date(s): 11/08/21 - 11/08/21 [facility] [place] [facility] [address] [facility] [address] Discharge Disposition: Discharge Attending Physician: Mikayla James MD Referring Physician: Mikayla James MD Allergies, Adverse Reactions, Alerts No Known Allergies Assessment and Plan Diagnostic Tests Pending * COVID-19 PCR (In-House) 11/08/21 Future Scheduled Tests Laboratory* ALT 04/07/21 * [...] 2Result Comment: will get 2nd dose in [place] hometown, via [facility] - in 3 weeks (04/01/20) 3Result Comment: 2020-02-15: EMPLOYEE HEALTH, RISK & BENEFITS DISCUSSED Medications famotidine 10 mg oral tablet = 1 tab(s), Oral, BID, # 60 tab(s), 1 Refill(s), Start: 10/11/21 13:59:00 AKDT, Pharmacy: [facility], Prescription Type: Internal Client Services Vice President, 178, cm, 10/11/21 13:31:00 AKDT, Height/Length Dosing, 92.9, kg, 10/11/21 13:31:00 AKDT... Start Date: 10/11/21 Status: Ordered hydrOXYzine hydrochloride 10 mg oral tablet = 1 tab(s), Oral, QID, PRN: anxiety, # 30 tab(s), 0 Refill(s), Start: 07/11/21 11:25:00 AKDT, Pharmacy: [facility], Prescription Type: Internal Client Services Vice President, Anxiety disorder, 178, cm, 06/21/21 16:51:00 AKDT, Height/Length Dosing,... Start Date: 07/11/21 Status: Ordered Multivitamins 1, Oral, Daily, 0 Refill(s), Start: 01/24/21 14:03:00 AKDT, Prescription Type: Internal Client Services Vice President Start Date: 01/24/21 Status: Ordered Vitamin B6 50 mg oral tablet = 1 tab(s), Oral, TID, PRN: Nausea, Take with doxylamine, # 180 tab(s), 0 Refill(s), Start: 04/24/21 8:55:00 AKST, Pharmacy: [facility], Prescription Type: Internal Client Services Vice President, 178, cm, 03/03/21 11:20:00 AKST, Height/Length Dosing... Start Date: 04/24/21 Status: Ordered Vitamin D3 25 mcg, Oral, Daily, 0 Refill(s), Start: 01/24/21 14:03:00 AKDT, Prescription Type: Internal Client Services Vice President Start Date: 01/24/21 Status: Ordered ZyrTEC Daily, 0 Refill(s), Start: 09/12/21 15:07:00 AKDT, Prescription Type: Internal Client Services Vice President Start Date: 09/12/21 Status: Ordered Problem List [...] would spoke only at parties socially, from [phone] Care Team Care Team Personnel Name: Mikayla James MD Position: Rural Provider ([facility]) Member Role: Primary Care Provider Address: Address: [address] [place] [address]- [place] Care Team Related Persons Name: EARNEST HEREDIA Address: Home [place] Name: EARNEST HEREDIA Address: Home [address] [place] [facility] [place] [address] Name: MANJEET ARIAS Address: [facility] [address] [place] [address] Address: Home [address] [place] [address] Address: [address]ailing [address] [place] [address]
--- OUTSIDE RECORDS SUMMARY | 2024-03-19 15:33 | XMS_ITS | Summary of Care ---
Author Organization [facility] Address [address] [facility] [place] [address] Phone Care Team Providers Care Carton Machine Operator Name Role Phone Unavailable Primary Care Provider Unavailabl e Encounter Details Date Type Department Care Team Description 05/18/2021 Historical Visit [facility] Maternal- Medicine [address] [facility] [id number] [place] [address] Adina Bunch, RN Social History Tobacco Use Types Packs/Day Years Used Date Never Assessed Comments Yes Sex Assigned at Date Recorded Not on file documented as of this encounter Plan of Treatment Health Maintenance Due Date Last Done Comments COVID-19 Vaccine (1) 1990 Vaccine: Dtap/Tdap/Td (1 - Tdap) 2004 Cervical Cancer Screening (Pap) 12/09/2015 Vaccine: Influenza (#1) 2020 documented as of this encounter
--- OUTSIDE RECORDS SUMMARY | 2024-03-19 15:33 | XMS_ITS | Continuity of Care Document ---
Author Organization [facility] Outpatie nt Address [address] [place] [id number] Care Team Providers Care Animal Shelter Clerk Name Role Phone Mikayla James Primary Care Physician Encounter Date(s): 01/01/24 - 01/01/24 [facility] [address] [place] [address] Encounter Diagnosis Left otitis media(Discharge Diagnosis) - 01/01/24 Nausea and vomiting in (Discharge Diagnosis) - 01/01/24 Sinus congestion(Discharge Diagnosis) - 01/01/24 Discharge Disposition: Discharge Attending Physician: Tammy Cho FNP, DNP Allergies, Adverse Reactions, Alerts No Known Allergies Assessment and Plan Extracted from: Title:[facility]: n/v an d left otitis media Author:Tammy Cho FNP, DNP Date:01/01/24 1. Nausea and vomiting in - She received 1 L of normal saline IV, 2 g of magnesium, thiamine 100 mg, and Phenergan 12.5 mg IV. - Urinalysis showed a small amount of leukocytes; awaiting culture results. - She felt significantly better after fluids, thiamine, magnesium, and Phenergan. - She is advised to continue with small, frequent meals and hydration. - If symptoms do not improve, further evaluation and alternative treatments will be considered. 2. Left otitis media - Repeat evaluation showed continued left otitis media erythema and bulging. - Augmentin 875/125 mg 1 tablet twice a day for 5 days was prescribed. 3. Sinus congestion - She will try treatment with a neti pot and humidifier. - Fluticasone nasal spray is considered safe to take during . - She can also use Benadryl as an antihistamine, though she is on promethazine, which has some antihistamine effects and is in the same class. Follow-up Return in 1 to 2 weeks or sooner if symptoms worsen or do not begin to improve. Patient Agreements: The patient understands and agrees with the recommended medical treatment plan. 20-29 minutes were spent performing the following [...] and/or coordinating the care of the patient. ATTESTATION Documentation services were performed by AMY after patient consented to recording for virtual scribe and provider reviewed before signing. AMY: Genesis Reynolds. Diagnostic Tests Pending * CT/NG (Swab/Urine/PAP) 01/01/24 * Urine Culture 01/01/24 * Urinalysis Microscopic 01/01/24 Future Scheduled Tests Laboratory* POC Urinalysis 11/18/23 Immunizations Given and Recorded [...] 2[facility]: [facility]08[facility]21[facility] 3Result Comment: 2020-02-15: EMPLOYEE HEALTH, RISK & BENEFITS DISCUSSED Medications amoxicillin-clavulanate 875 mg-125 mg oral tablet amoxicillin = 1 tab(s), Oral, q12hr, X 5 day(s), # 10 tab(s), 0 Refill(s), Start: 01/01/24 11:57:00 AM AKDT, Stop: 01/06/24 11:57:00 AM AKDT, Pharmacy: [facility], Prescription Type: Internal Veterinary Medicine Doctor, Left otitis media, 178, cm, 01/01/24 9:56:00 AKDT, Height/Length Dosing, 85.7, kg, 11/18/23 16:08:00 AKDT, Weight Dosing Start Date: 01/01/24 Stop Date: 01/06/24 Status: Ordered diphenhydrAMINE 25 mg oral capsule = 1 cap(s), Oral, q6hr, PRN: Nausea/Vomiting (NPO), Take 1-2 tablets every 6 hours., # 100 cap(s), 0 Refill(s), Start: 12/09/23 10:00:00 AM AKDT, Pharmacy: [facility], Prescription Type: Internal Veterinary Medicine Doctor, Nausea and vomiting in , 178, cm, 12/09/23 8:51:00 AKDT, Height/Length Dosing, 85.7, kg, 11/18/23 16:08:00 AKDT, Weight Dosing Start Date: 12/09/23 Status: Ordered Phenergan 25 mg oral tablet = 1 tab(s), Oral, q6hr, PRN: nausea/vomiting, as needed for nausea/vomiting, # 40 tab(s), 1 Refill(s), Start: 01/01/24 11:50:00 AM AKDT, Pharmacy: [facility], Prescription Type: Internal Veterinary Medicine Doctor, 178, cm, 01/01/24 9:56:00 AKDT, Height/Length Dosing, 85.7, kg, 11/18/23 16:08:00 AKDT, Weight Dosing Start Date: 01/01/24 Status: Ordered Multivitamins 1, Oral, Daily, 0 Refill(s), Start: 01/24/21 2:03:00 PM AKDT, Prescription Type: Internal Veterinary Medicine Doctor Start Date: 01/24/21 Status: Ordered Senna-docusate 8.6 mg-50 mg oral tablet = 1 tab(s), Oral, Once a day (at bedtime), PRN PRN Constipation, # 12 tab(s), 0 Refill(s), Start: 01/01/24 11:51:00 AM AKDT, Pharmacy: [facility], Prescription Type: Internal Veterinary Medicine Doctor, Nausea and vomiting in , 178, cm, 01/01/24 9:56:00 AKDT, Height/Length Dosing, 85.7, kg, 11/18/23 16:08:00 AKDT, Weight Dosing Start Date: 01/01/24 Status: Ordered sertraline 25 mg oral tablet = 1 tab(s), Oral, Daily, # 90 tab(s), 4 Refill(s), Start: 05/30/23 12:56:00 PM AKST, Pharmacy: [facility], Prescription Type: Internal Veterinary Medicine Doctor, 178, cm, 09/17/22 13:29:00 AKDT,Height/Length Dosing, 87, kg, 09/17/22 13:29:00 AKDT, Weight Dosing Start Date: 05/30/23 Status: Ordered Vitamin D3 25 mcg, Oral, Daily, 0 Refill(s), Start: 01/24/21 2:03:00 PM AKDT, Prescription Type: Internal Veterinary Medicine Doctor Start Date: 01/24/21 Status: Ordered Problem List Condition Confirmation Course Effective Dates Status H ealt Status Informant Anxiety disorder Confirmed Active AMA (advanced maternal age) primigravida 35+ Confirmed Active Exercise-induced asthma Confirmed Active Maternal family history of dementia Confirmed Active Family history of malignant melanoma of skin Confirmed Active Nausea and vomiting in Confirmed Active Left otitis media Confirmed Active Right otitis media Confirmed Active 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 Diagnosis Diagnosis Type Effective Dates Health Status Clinical Service Informant Nausea and vomiting in Discharge Diagnosis 01/01/24 Left otitis media Discharge Diagnosis 01/01/24 Sinus congestion Discharge Diagnosis 01/01/24 Results Laboratory List Name Date Magnesium Level 01/01/24 Urinalysis with Reflex Microscopic CBC w/ Auto Diff 01/01/24 Comprehensive Metabolic Panel (CMP) 12/31 Most recent to oldest [Reference Range]: 1 WBC [4.0-12.0 K/uL] 7.2 K/uL (01/01/24 10:08 AM) RBC [3.43-5.21 M/uL] 4.22 M/uL (01/01/24 10:08 AM) HGB [10.3-14.8 gm/dL] 13.2 gm/dL (01/01/24 10:08 AM) HCT [32.5-46.2 %] 37.0 % (01/01/24 10:08 AM) MCV [82.5-98.0 fL] 87.7 fL (01/01/24 10:08 AM) MCH [26.1-32.9 pg] 31.3 pg (01/01/24 10:08 AM) MCHC [30.7-34.9 gm/dL] 35.7 gm/dL *HI* (01/01/24 10:08 AM) RDW [11.8-16.4 %] 12.0 % (01/01/24 10:08 AM) MPV [7.9-13.1 fL] 9.7 fL (01/01/24 10:08 AM) Platelet Count [136.0-388.0 K/uL] 274.0 K/uL (01/01/24 10:08 AM) Neutrophils, Percentage: [49.1-76.9 %] 7 6.0 % (01/01/24 10:08 AM) Lymphocytes, Percentage: [13.9-44.4 %] 1 5.9 % (01/01/24 10:08 AM) Absolute Neutrophils: [2.4-7.5 K/uL] 5.5 K/uL (01/01/24 10:08 AM) Absolute Lymphocytes: [1.0-3.4 K/uL] 1.1 K/uL (01/01/24 10:08 AM) BUN [7-20 mg/dL] 9 mg/dL (01/01/24 10:08 AM) GFR (estimated) [>60 mL/min] 113 mL/min 1 (01/01/24 10:08 AM) Calcium [8.4-10.3 mg/dL] 9.2 mg/dL (01/01/24 10:08 AM) Sodium [137-145 mmol/L] 140 mmol/L (01/01/24: AM) Potassium [3.6-5.0 mmol/L] 3.8 mmol/L (01/01/24: AM) Chloride [98-107 mmol/L] 105 mmol/L (01/01/24: AM) CO2 [22-30 mmol/L] 24 mmol/L (01/01/24: AM) Alkaline Phosphatase [38-128 U/L] 52 U/L (01/01/24: AM) Protein,Total [6.3-8.2 gm/dL] 6.5 gm/dL (01/01/24 AM) ALT (SGPT) [11-66 U/L] 11 U/L (01/01/24: AM) AST (SGOT) [15-46 U/L] 28 U/L (01/01/24 AM) Bilirubin, Total [0.2-1.3 mg/dL] 0.6 mg/ dL (01/01/24:08 AM) Magnesium [1.6-2.3 mg/dL] 2.0 mg/dL (01/01/24:11 AM) ALBUMIN: [3.5-5.1 gm/dL] 3.1 gm/dL *LOW* (01/01/24: AM) Specific [place] [1.005-1.030] 1.025 (01/01/24: AM) pH - Urine [5.0-8.0] 6.0 (01/01/24: AM) Leukocytes Esterase [NEGATIVE-NEGATIVE] Trace *ABN* (01/01/24: AM) Nitrites [NEGATIVE-NEGATIVE] Negative (01/01/24 AM) Protein [NEGATIVE-NEGATIVE mg/dL] Negati ve mg/dL (01/01/24: AM) Glucose Level [70-100 mg/dL] 98 mg/dL (01/01/24 10:08 AM) Ketones [NEGATIVE-NEGATIVE] Negative (01/01/24: AM) Urobilinogen [0.2, 1.0 EU/dL] 0.2 EU/dL (01/01/24 10:09 AM) Bilirubin [NEGATIVE-NEGATIVE] Negative (01/01/24 10:09 AM) Blood [NEGATIVE-NEGATIVE] Negative (01/01/24 10:09 AM) Microscopic YES (01/01/24 10:09 AM) Anion Gap 11.0 (01/01/24 10:08 AM) COLOR - Urine [YELLOW] Yellow (01/01/24 10:09 AM) Glucose UA [NEGATIVE-NEGATIVE mg/dL] Neg ative mg/dL (01/01/24 10:09 AM) CREATININE [0.8-1.5 mg/dL] 0.7 mg/dL *LOW* (01/01/24 10:08 AM) Mixed Cells % [4.7-13.3 %] 8.1 % (01/01/24 10:08 AM) Mixed Cells Absolute [0.3-1.1 K/uL] 0.6 K/uL (01/01/24 10:08 AM) Urine Appearance [CLEAR] Clear (01/01/24:09 AM) Urine Source Clean Catch (01/01/24 10:09 AM) 1Result Comment: eGFR INTERPRETATION FOR CHRONIC KIDNEY DISEASE*: STAGE eGFR CLINICAL DESCRIPTION NORMAL >/=130 NORMAL KIDNEY FUNCTION STAGE 1 90-129 KIDNEY DAMAGE W/ NORMAL OR INCREASED KIDNEY FUNCTION STAGE 2 60-89 KIDNEY DAMAGE WITH MILD DECREASED KIDNEY FUNCTION STAGE 3 30-59 MODERATELY DECREASED KIDNEY FUNCTION STAGE 4 15-29 SEVERELY DECREASED KIDNEY FUNCTION STAGE 5 <15 KIDNEY FAILURE NKDEP GUIDELINES *NKDEP GUIDELINES https://www.kidney.org/professionals/kdoqi/gfr_calculator UPDATED 04.03.22 Vital Signs Most recent to oldest [Reference Range]: 1 Temperature Temporal Artery [97.3-100.6 DegF] 99.4 DegF (01/01/24 9:56 AM) Peripheral Pulse Rate [60-100 bpm] 94 bp m (01/01/24 9:56 AM) Respiratory Rate [14-20 br/min] 20 br/mi n (01/01/24 9:56 AM) Blood Pressure [90-140/60-90 mmHg] 110/7 7mmHg (01/01/24 9:56 AM) Mean Arterial Pressure, Cuff [59-90 mmHg ] 88 mmHg (01/01/24 9:56 AM) SpO2 99 % (01/01/24 9:56 AM) Height/Length Dosing 178 cm (01/01/24 9:56 AM) Height/Length Measured 178 cm (01/01/24 9:56 AM) Social History Social History Type Response Tobacco Tobacco Use: Denies tobacco use. 1 Sex Female 1in past >3yr pt would spoke only at parties socially, from [id number] Primary Care Provider Note * Tammy Cho, PJ, DNP: PERFORM, MODIFY Event Display: Primary Care Provider Note Authored Date: [id number] Chief Complaint Flu like symptoms Para Information: ??:??2 ??Para Term:??1 ??Para :??0 ??Para Abortions:??0 ??Para Living:??1 ?? BUTCH/EGA Gestational Age (EGA) and BUTCH? * Note: EGA calculated as of 01/01/2024 ?? BUTCH:??07/20/2024?EGA*:??11 weeks 2 days ?Type:??Authoritative?Method Date:??10/14/2023 ?Method:??Last Menstrual Period??(10/14/2023) ?Confirmation:??Confirmed ?Description:??-- ?Comments:??-- ?Entered by:??Teresa Brooks RN on 11/20/2023? Other BUTCH Calculations for this : ?Method:??Ultrasound ?Method Date:??12/25/2023 ?BUTCH:??07/19/2024 ?EGA (At Entry):??10 weeks 3 days ?Type:??Non-Authoritative ?Comments:??-- ?Entered by:??Teresa Brooks RN on 12/29/2023 History of Present Illness The patient is a 37-year-old female who is 11 weeks and 2 days gestational age, , presenting today with ongoing nausea that has not been controlled with ondansetron, vitamin B6, and Benadryl. ?? Has been struggling with n/v since beginning of [...] unsure if this is related to the ondansetron. ?? She also reports left ear pain and sinus fullness. Her and 2-year-old son have also beenill. She conducted a home COVID-19 test, which returned negative results. Review of Systems Patient has vitamins and has not been tolerating. Patient does not have scotoma or other visual disturbance. Patient does not have headache. Patient does have nausea or vomiting. Patient does not have back pain. Patient does not have abdominal pain. Patient does not have contractions. Patient does not have Groton Feldman contractions. Patient does not have vaginal discharge present. Patient does not have vaginal bleeding. Patient does not have dysuria. Patient is not yet having movement. Patient does not have swelling in the legs/ankles/hands. Physical Exam Vitals & Measurements T:??99.4?F ??(Temporal Artery)?? HR:??94??(Peripheral)?? RR:??20?? BP:??110/77?? SpO2:??99%?? HT:??178??cm?? Visit Assessment Systolic Blood Pressure: 110 mmHg (01/01/24) Diastolic Blood Pressure: 77 (01/01/24) Mean Arterial Pressure, Cuff: 88 mmHg (01/01/24) GEN: Well developed well nourished??. Patient appears alert and oriented, in no apparent distress. HEENT: Initial redness in bilateral ears, with the left ear bulging more than the right ear. Discomfort noted in the frontal maxillary region. NECK: Symmetrical an dSupple without lymphadenopathy or masses. RESP: Lungs clear to auscultation bilaterally. Good air movement and chest expansion. HEART: Regular rate. Capillary refill <2 seconds. Radial pulses +2 bilaterally. ABD:??rounded, Non-distended, non-tender, w/o masses or hepatosplenomegaly FHR 145 EXT: No clubbing, cyanosis or pedal edema. NEURO: No focal deficits noted.?? Equal strength and coordination noted bilaterally. PSYCH: Normal mood and affect. Good eye contact and engages easily. Reliable historian. SKIN: No rash or open lesions. heart rate is 145 bpm. Assessment/Plan 1.??Nausea and vomiting in - She received 1 L of normal saline IV, 2 g of magnesium, thiamine 100 mg, and Phenergan 12.5 mg IV. - Urinalysis showed a small amount of leukocytes; awaiting culture results. - She felt significantly better after fluids, thiamine, magnesium, and Phenergan. - She is advised to continue with small, frequent meals and hydration. - If symptoms do not improve, further evaluation and alternative treatments will be considered. 2.??Left otitis media - Repeat evaluation showed continued left otitis media erythema and bulging. - Augmentin 875/125 mg 1 tablet twice a day for 5 days was prescribed. 3.??Sinus congestion - She will try treatment with a neti pot and humidifier. - Fluticasone nasal spray is considered safe to take during . - She can also use Benadryl as an antihistamine, though she is on promethazine, which has some antihistamine effects and is in the same class. ?? Follow-up Return in 1 to 2 weeks or sooner if symptoms worsen or do not begin to improve. ?? Patient Agreements: The patient understands and agrees with the recommended medical treatment plan. ?? 20-29 minutes were spent performing the [...] and/or coordinating the care of the patient.? ATTESTATION Documentation services were performed by AMY after patient consented to recording for virtual scribe and provider reviewed before signing. AMY: Genesis Reynolds. ?? Plan No qualifying data available. Lab Results Test Name Test Result Date/TimeWBC 7.2 K/uL 01/01/2024 10:08 AKDT HGB 13.2 gm/dL 01/01/2024 10:08 AKDT HCT 37.0 % 01/01/2024 10:08 AKDT Platelet Count 274.0 K/uL 01/01/2024 10:08 AKDT RBC 4.22 M/uL 01/01/2024 10:08 AKDT MCV 87.7 fL 01/01/2024 10:08 AKDT MCH 31.3 pg 01/01/2024 10:08 AKDT MCHC 35.7 gm/dL (High) 01/01/2024 10:08 AKDT RDW 12.0 % 01/01/2024 10:08 AKDT MPV 9.7 fL 01/01/2024 10:08 AKDT Neutrophils, Percentage: 76.0 % 01/01/2024 10:08 AKDT Lymphocytes, Percentage: 15.9 % 01/01/2024 10:08 AKDT Absolute Neutrophils: 5.5 K/uL 01/01/2024 10:08 AKDT Absolute Lymphocytes: 1.1 K/uL 01/01/2024 10:08 AKDT Mixed Cells % 8.1 % 01/01/2024 10:08 AKDT Mixed Cells Absolute 0.6 K/uL 01/01/2024 10:08 AKDT GFR (estimated) 113 mL/min 01/01/2024 10:08 AKDT Sodium 140 mmol/L 01/01/2024 10:08 AKDT Potassium 3.8 mmol/L 01/01/2024 10:08 AKDT Chloride 105 mmol/L 01/01/2024 10:08 AKDT CO2 24 mmol/L 01/01/2024 10:08 AKDT BUN 9 mg/dL 01/01/2024 10:08 AKDT CREATININE 0.7 mg/dL (Low) 01/01/2024 10:08 AKDT Glucose Level 98 mg/dL 01/01/2024 10:08 AKDT Calcium 9.2 mg/dL 01/01/2024 10:08 AKDT Magnesium 2.0 mg/dL 01/01/2024 10:11 AKDT Protein,Total 6.5 gm/dL 01/01/2024 10:08 AKDT AST (SGOT) 28 U/L 01/01/2024 10:08 AKDT ALT (SGPT) 11 U/L 01/01/2024 10:08 AKDT Alkaline Phosphatase 52 U/L 01/01/2024 10:08 AKDT Bilirubin, Total 0.6 mg/dL 01/01/2024 10:08 AKDT Anion Gap 11.0 01/01/2024 10:08 AKDT ALBUMIN: 3.1 gm/dL (Low) 01/01/2024 10:08 AKDT COLOR - Urine Yellow 01/01/2024 10:09 AKDT Urine Appearance Clear 01/01/2024 10:09 AKDT Urine Source Clean Catch 01/01/2024 10:09 AKDT Specific Vander[place]ift 1.025 01/01/2024 10:09 AKDT pH - Urine 6.0 01/01/2024 10:09 AKDT Leukocytes Esterase Trace (Abnormal) 01/01/2024 10:09 AKDT Nitrites Negative 01/01/2024 10:09 AKDT Protein Negative 01/01/2024 10:09 AKDT Glucose UA Negative 01/01/2024 10:09 AKDT Ketones Negative 01/01/2024 10:09 AKDT Urobilinogen 0.2 EU/dL 01/01/2024 10:09 AKDT Bilirubin Negative 01/01/2024 10:09 AKDT Blood Negative 01/01/2024 10:09 AKDT Diagnostic Results (12/25/2023 10:40 AKDT US [...] estimated date of delivery of 07/19/2024 . [1] Medications amoxicillin-clavulanate 875 mg-125 mg oral tablet, 1 tab(s), Oral, q12hr diphenhydrAMINE 25 mg oral capsule, 25 mg= 1 cap(s), Oral, q6hr, PRN Phenergan 25 mg oral tablet, 25 mg= 1 tab(s), Oral, q6hr, PRN, 1 refills Multivitamins, 1, Oral, Daily Senna-docusate 8.6 mg-50 mg oral tablet, 1 tab(s), Oral, Once a day (at bedtime), PRN sertraline 25 mg oral tablet, 25 mg= 1 tab(s), Oral, Daily, 4 refills Vitamin D3, 25 mcg, Oral, Daily Allergies NKA Gynecological History ?? History?(1,0,0,1)? # 1 ?Baby 1 ?Outcome Date:??12/05/2021?Outcome or Result:??Vaginal, Vacuum Assist ?Gest Age:??40 weeks 1 days ? Outcome:??Live ? Sex:??Male?Wt:?2800 g ?Maternal Complications:??Advanced maternal age; Intrauterine growth restriction.; Oligohydramnios ? Complications:??Meconium stained; Vacuum delivery ? Complications:??Meconium aspiration ?Child's Name:??Kendrick White ?Name of Father/Guardian of [place]:??Guillermo White ?[facility] Problem List/Past Medical History Ongoing AMA (advanced maternal age) primigravida 35+ Anxiety disorder Circumvallate placenta Exercise-induced asthma Family history of malignant melanoma of skin Left otitis media Maternal family history of dementia Nausea and vomiting in Right otitis media Historical Dysuria Febrile Headache Nausea Social History Alcohol Denies alcohol use, not [...] Gestation; Leonora Rodriguez MD 12/25/2023 10:40 AKFITO PJ Tate, FUNMI Genesis Reynolds Patient Care team information Care Team Personnel Name: Mikayla James MD Position: Rural Provider ([facility]) Member Role: Primary Care Provider Address: Address: [address] [address]- Care Team Related Persons Name: EARNEST HEREDIA Address: Home [place] Name: EARNEST HEREDIA Address: Home [address] [place] [address] Name: GUILLERMO WHITE Address: [address] [address] Address: Home [address] [place] [id number] Address: Mailing [address] [place] [id number]
--- OUTSIDE RECORDS SUMMARY | 2024-03-19 15:35 | XMS_ITS | Summary of Care ---
Author Organization [facility] Address [address] [place] [address] Phone Care Team Providers Care Web Architect Name Role Phone Unavailable Primary Care Provider Eddieabl e Encounter Details Date Type Department Care Team Description 05/23/2021 Orders Only [facility] Maternal- Medicine [address] [facility] [id number] [place] [address] Tammy Leavitt, Aircraft Systems Repairer [facility] [address] [place] [address] Allergies No known active allergiesdocumented as of this encounter (statuses as of 05/25/2021) Medications Medication Sig Dispensed Refills Start Date End Date Status [place]-Git-Sf-FA ( #2 PO) 0 Active VITAMIN D PO Vitamin D 0 Active documented as of this encounter (statuses as of 05/25/2021) Immunizations Name Administration Dates Next Due COVID-19 (PFIZER_Purple Cap) 12 yrs+, 30mcg/0.3mL 12/23/2020,04/01/2020,03/11/2020 INFLUENZA PF, QUADRIVALENT 12/21/2020,01/12/2020 INFLUENZA W/PRES QUADRIVALENT 12/25/2018 ,01/06/2018,02/04/2017,2015,01/31/2015 TDAP, (ADOL/ADULT) 08/01/2015 documented as of this encounter Social History Tobacco Use Types Packs/Day Years Used Date Former Smoker Cigarettes Quit: 2016 Comments:social smoker 2006- 2016 Alcohol Use Standard Drinks/Week Comments Not Currently 0 (1 standard drink = 0.6 oz pur e alcohol) Estimated Date of Delivery Comme nts Yes 12/04/2021 Based on last me nstrual period of 02/27/2021 Sex Assigned at Date Recorded Not on file documented as of this encounter Plan of Treatment Upcoming Encounters Date Type Specialty Care Team Description 07/03/2021 Routine Maternal and Fe tavo Medicine Valentín Patel Jr., DO [address] [place] [address] Health Maintenance Due Date Last Done Comments Hepatitis C Screening 1985 Cervical Cancer Screening (Pap) 12/09/2015 Vaccine: Dtap/Tdap/Td (2 - T d or Tdap) 07/31/2025 08/01/2015 Vaccine: Influenza Completed 12/21/2020, 1 , 12/25/2018, Additional history exists COVID-19 Vaccine Completed 12/23/2020, 10/2020, 03/11/2020 documented as of this encounter Advance Directives Documents on File Type Date Recorded Patient Operational Intelligence Analyst Expl anation Power of Stud Master/[place] Advance Directive
--- OUTSIDE RECORDS SUMMARY | 2024-03-19 15:35 | XMS_ITS | Summary of Care ---
Author Organization [facility] Address [address] [place] [address] Phone Care Team Providers Care Foreign Broadcast Specialist Name Role Phone Unavailable Primary Care Provider Unavailabl e Reason for Referral * Specialty Diagnoses / Procedures Referred By Reinier santizo Referred To Contact Chantal Vazquez MD [id number] [place] [address] Referral ID Status Reason Start Date Expiration Date Visits Re quested Visits Authorized Reason for Visit * Reason Comments Abnormal Ultrasound Encounter Details Date Type Department Care Team Description 08/28/2021 Routine [facility] Maternal- Medicine [address] [place] [phone] Chantal Vazquez MD [id number] [place] [address] GA: 26w0d Allergies No known active allergiesdocumented as of this encounter (statuses as of 08/28/2021) Medications Medication Sig Dispensed Refills Start Date End Date Status Fovrietv-Dij-Tf-F A ( #2 PO) 0 Active VITAMIN D PO Vitamin D 0 Active Cetirizine HCl (ZYRTEC ALLERGY) 10 MG liqui-gelIndicati ons:Abnormal ultrasound of placenta 0 Active doxylamine (UNISOM) 25 mg tablet Take 12.5 mg by mouth. 0 04/24/2021 08/28/2021 Discontinued( Patient Not Taking) pyridOXINE (VITAMIN B-6) 50 mg tablet Take 50 mg by mouth. 0 04/24/2021 08/28/2021 Discontinued( Patient Not Taking) documented as of this encounter (statuses as of 08/28/2021) Immunizations Name Administration Dates Next Due COVID-19 (PFIZER, PURPLE CAP ) 12 YRS+, 0.3 mL 12/23/2020,04/01/2020,03/11/2020 INFLUENZA PF, QUADRIVALENT 12/21/2020,01/12/2020 INFLUENZA W/PRES QUADRIVALENT 12/25/2018 ,01/06/2018,02/04/2017,2015,01/31/2015 TDAP, (ADOL/ADULT) 08/01/2015 documented as of this encounter Social History Tobacco Use Types Packs/Day Years Used Date Former Smoker Cigarettes Quit: 2016 Smokeless Tobacco: Never Used Comments:social smoker: 2006 -2016 Alcohol Use Standard Drinks/Week Comments Not Currently 0 (1 standard drink = 0.6 oz pur e alcohol) Education Answer Date Recorded What is the highest level of school you have completed or the highest degree you have received? Bachelor's degree (e.g., BA, AB, BS) 08/28/2021 Estimated Date of Delivery Comme nts Yes 12/04/2021 Based on last me nstrual period of 02/27/2021 Sex Assigned at Date Recorded Female 06/29/2021 9:34 AM A [facility]DT documented as of this encounter Last Filed Vital Signs Vital Sign Reading Time Taken Comments Blood Pressure 127/80 08/28/2021 10:45 AM AKDT Pulse 99 08/28/2021 10:45 AM AK[facility] Temperature 37.1 C (98.8 F) 08/28/2021 10:45 AM AKDT Respiratory Rate - - Oxygen Saturation 100% 08/28/2021 10: 45 AM AK[facility] Inhaled Oxygen Concentration - - Weight 92.4 kg (203 lb 9.6 oz) 08/29/19 10:45 AM AKDT Height 177.8 cm (5' 10) 08/28/2021 10: 45 AM AKDT Body Mass Index 29.21 08/28/2021 10:45 AM AKDT documented in this encounter Progress Notes * Chantal Vazquez MD - 08/28/2021 10:30 AM AKDT Maternal Medicine Follow up Visit Laura Amaro 08/28/2021 [id number] Referring Provider: Mikayla James MD [address] [place] [address] HPI/CURRENT : I had the privilege of seeing Laura Amaro for a follow up visit today in Maternal Medicine. She is a 35 y.o. with an intrauterine at 26w0d and an Estimated Date of Delivery: 12/04/21 who initially presented for consultation on 05/24/2021 in regards to AMA with low risk cfDNA and an abnormal first trimester ultrasound which showed??concerns for an abnormal placenta with possible separation or subchorionic hemorrhage. Ultrasound in our office at that time demonstrated placental findings with a possible developing circumvallate placenta. There was no retroplacental or membranous collections identified. She presents today for a growth & placental evaluations and a follow up maternal consultation Her has been uncomplicated otherwise since her last visit. She currently denies any leaking of fluid, vaginal bleeding or regular contractions. She reports active movements at this time and intermittent lower pelvic tightening. This occurs when she is exercising or when her bladder is very full. When she empties her bladder the cramping typically improves. The most frequent it gets is 2-3x/hour then they resolve with rest. 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 She plans to establish care with the OBGYN clinic in . ?? She is unaccompanied at today's visit.?? No Known Allergies Current Outpatient Medications: ??? Cetirizine HCl (ZYRTEC ALLERGY) 10 MG liqui-gel, , Disp: , Rfl: ??? Dnqceeys-Fap-Qg-FA ( #2 PO), , Disp: , Rfl: ??? VITAMIN D PO, Vitamin D, Disp: , Rfl: OB History Para Term AB Living 1 SAB TAB Ectopic Molar Multiple Live Births # Outcome Date GA Lbr Darell/2nd Weight Sex Delivery Anes PTL Lv 1 Current Obstetric Comments G1 SURPRISE gender G1 Paternity hx: Guillermo White, age 42. Ht: 6', Wt: 180lb. Works for [employer]. His sister has identical twins, his maternal uncle and grandparents had cancer. REVIEW OF SYSTEMS: Denies headaches Denies nausea/vomiting/visual changes Denies abdominal pain/cramping/tenderness/regular contractions Reports intermittent lower pelvic tightening. Denies leg pain, tenderness or swelling Reports + movement Denies vaginal bleeding or leakage of fluid All other systems negative PHYSICAL EXAM: Vitals: 08/28/21 1045 BP: 127/80 Pulse: 99 Temp: 98.8 ??F (37.1 ??C) TempSrc: Oral SpO2: 100% Weight: 92.4 kg (203 lb 9.6 oz) Height: 1.778 m (5' 10) General: Pleasant, alert and oriented, no acute distress. Lungs: Non labored respirations. Abdomen: Soft, non-tender, gravid. Extremities: No edema. Pelvic exam: Deferred. MFM Ultrasound (please see separate procedure note in EPIC records): Single intrauterine in breech presentation with normal JACQUES of 10cm. Overall growth is at the 44%, the AC is at the 30%. The placenta is posterior, appears circumvallate, thickened and globular in appearance. No anatomic abnormalities are seen today. Discussion: The US findings were reviewed with Laura today. Impression/Plan: @ 26w0d 1.??Abnormal placenta-suspected circumvallate/ring placenta - Normal growth today with completion of face and cardiac anatomy. - Recommend growth ultrasounds every 5-6 weeks which can be performed in . - Normal-appearing nuchal translucency and ductus venosus Doppler noted on FTS. - Posterior placenta appears to be a circumvallate/ring placenta with a central cord insertion. - Small anterior retromembranous echogenic area may represent prior previously noted polyp. - We reviewed that circumvallate placentas have been associated with increased risk of adverse outcomes of PPROM, growth restriction, abruption and delivery. ?? 2. Advanced Maternal Age - Low risk cfDNA - Normal-appearing first trimester ultrasound with normal nuchal translucency and nasal bone noted. -Signs and symptoms of preeclampsia/ labor were reviewed with her today. ICD-10-CM ICD-9-CM 1. Abnormal ultrasound of placenta O28.3 796.5 2. Circumvallate placenta during in second trimester, antepartum O43.112 656.73 3. Primigravida of advanced maternal age in first trimester O09.511 659.53 4. 26 weeks gestation of Z3A.26 V22.2 Follow up: No further follow up has been scheduled in Maternal Medicine at this time. Thank you for allowing us to participate in the care of your patient. Please feel free to call withany questions or concerns or if we can provide any further assistance. I spent a total of 20 minutes in chart review, jvjb-dp-kaaa time, post-visit documentation and other services detailed on the day of this encounter, excluding 5 minutes spent on review of the ultrasound findings. Time in room: 1100 Time out room: 1120 Chantal Vazquez MD [facility] documented in this encounter Plan of Treatment Health Maintenance Due Date Last Done Comments Hepatitis C Screening 1985 Cervical Cancer Screening (Pap) 12/09/2015 Vaccine: Dtap/Tdap/Td (2 - T d or Tdap) 07/31/2025 08/01/2015 Vaccine: Influenza Completed 12/21/2020, 1 , 12/25/2018, Additional history exists COVID-19 Vaccine Completed 12/23/2020, 10/2020, 03/11/2020 documented as of this encounter Procedures Procedure Name Priority Date/Time Associated Diagnosis Comments US OB FOLLOW UP TRANSABDOMINAL Routine 08/28/2021 10:32 AM AK[facility] Abnormal ultrasound of placenta documented in this encounter Results * US OB Follow Up Transabdominal (08/28/2021 10:32 AM AKDT) Anatomical Region Laterality Modality Abdomen Ultrasound Study GA Study Date Study BUTCH Working BUTCH (Source) Feta l Weight (Method) 08/28/2021 12/04/2021 (Las t Menstrual Period) Result Name Value Comments Biparietal Diameter cm Abdominal Circumference cm Femoral Diameter cm Head Circumference cm HC/AC Estimated Weight grams Specimen Narrative [facility] - 08/28/2021 4:25 PM AK[facility] Indication Abnormal placenta seen on outside US Maternal Assessment Physical Exam Height 178 cm, 5 ft 10 in [place] . Number of fetuses: 1 Dating ======= GA by prior assessment 26 w + 0 d BUTCH by prior assessment: 12/04/2021 Ultrasound examination on: 08/28/2021 GA by U/S based upon: AC, BPD, Femur, HC GA by U/S 26 w + 1 d BUTCH by U/S: 12/03/2021 Assigned: based on stated BUTCH, selected on 07/03/2021 Assigned GA 26 w + 0 d Assigned BUTCH: 12/04/2021 length 280 d General Evaluation Cardiac activity present. FHR 126 bpm. movements visualized. Presentation breech. Placenta Placental site: posterior, circumvallate . Umbilical cord Cord vessels: 3 vessel cord. Insertion site: normal insertion. Amniotic fluid Amount of AF: Normal. MVP 5.5 cm. JACQUES 10.0 cm. Q1 2.9 cm, Q2 1.7 cm, Q3 5.5 cm, Q4 0.0 cm. Biometry BPD 62.1 mm 16% Hadlock OFD 90.8 mm >99% Radha HC 249.5 mm 64% Hadlock AC 211.1 mm 30% Hadlock Femur 49.5 mm 57% Hadlock Humerus 45.6 mm 74% Radha HC / AC 1.18 Weight Calculation: EFW 896 g 44% Hadlock EFW (lb,oz) 2 lb 0 oz EFW by Hadlock ([id number]) Head / Face / Neck Biometry: Cephalic index 0.68 <1% Nicolaides Extremities / Bony Struc Biometry: FL / BPD 0.80 FL / HC 0.20 FL / AC 0.23 Anatomy The following structures appear normal: Head / Neck Cranium. Lateral ventricles. Choroid plexus. Midline falx. Cavum septi pellucidi. Face Lips. Profile. Nose. Palate. Maxilla. Orbits. Lens. Heart / Thorax 4-chamber view. RVOT view. LVOT view. Situs. Aortic arch view. Ductal arch view. Cardiac position. Cardiac axis. Cardiac size. Cardiac rhythm. Cardiac function. Abdomen Stomach. Bladder. Spine Cervical spine. Thoracic spine. Lumbar spine. The following structures could not be adequately visualized: Spine Sacral spine. The following structures were visualized: Abdomen Kidneys. Extremities / Arms. Legs. Skeleton The following structures were documented previously: Head / Neck Cerebellum. Cisterna magna. Abdomen Cord insertion. Genitals. Impression Single intrauterine in breech presentation The overall growth remains appropriate at 896 g which is at 44%ile for the gestational age, AC is 30%ile Normal JACQUES of 10 cm The placenta is posterior, circumvallate, thickened and globular in appearance with a large maternal sinus on the surface. Cord insertion is normal. No anatomic abnormalities are seen today, cardiac and face views were better visualized today to complete the anatomy assessment. Active movement is noted. The US findings were reviewed with the patient today. MFM consultation is dictated under separate letter. Thank you for allowing us to participate in the care of your patient. Follow-up No further MFM follow-up at this time. Procedure Note Chantal Vazquez MD - 08/28/2021 Indication Abnormal placenta seen on outside US Maternal Assessment Physical Exam Height 178 cm, 5 ft 10 in [place] . Number of fetuses: 1 Dating ======= GA by prior assessment 26 w + 0 d BUTCH by prior assessment: 12/04/2021 Ultrasound examination on: 08/28/2021 GA by U/S based upon: AC, BPD, Femur, HC GA by U/S 26 w + 1 d BUTCH by U/S: 12/03/2021 Assigned: based on stated BUTCH, selected on 07/03/2021 Assigned GA 26 w + 0 d Assigned BUTCH: 12/04/2021 length 280 d General Evaluation Cardiac activity present. FHR 126 bpm. movements visualized. Presentation breech. Placenta Placental site: posterior, circumvallate . Umbilical cord Cord vessels: 3 vessel cord. Insertion site: normalinsertion. Amniotic fluid Amount of AF: Normal. MVP 5.5 cm. JACQUES 10.0 cm. Q1 2.9 cm,Q2 1.7 cm, Q3 5.5 cm, Q4 0.0 cm. Biometry BPD 62.1 mm 16%Hadlock OFD 90.8 mm >99%Radha HC 249.5 mm 64%Hadlock AC 211.1 mm 30%Hadlock Femur 49.5 mm 57%Hadlock Humerus 45.6 mm 74%Radha HC / AC 1.18 Weight Calculation: EFW 896 g 44%Hadlock EFW (lb,oz) 2 lb 0 oz EFW by Hadlock ([id number]) Head / Face / Neck Biometry: Cephalic index 0.68 <1%Nicolaides Extremities / Bony Struc Biometry: FL / BPD 0.80 FL / HC 0.20 FL / AC 0.23 Anatomy The following structures appear normal: Head / Neck Cranium. Lateral ventricles. Choroid plexus.Midline falx. Cavum septi pellucidi. Face Lips. Profile. Nose. Palate. Maxilla. Orbits.Lens. Heart / Thorax 4-chamber view. RVOT view. LVOT view. Situs.Aortic arch view. Ductal arch view. Cardiac position. Cardiac axis. Cardiac size. Cardiac rhythm.Cardiac function. Abdomen Stomach. Bladder. Spine Cervical spine. Thoracic spine. Lumbar spine. The following structures could not be adequately visualized: Spine Sacral spine. The following structures were visualized: Abdomen Kidneys. Extremities / Arms. Legs. Skeleton The following structures were documented previously: Head / Neck Cerebellum. Cisterna magna. Abdomen Cord insertion. Genitals. Impression Single intrauterine in breech presentation The overall growth remains appropriate at 896 g which is at 44%ilefor the gestational age, AC is 30%ile Normal JACQUES of 10 cm The placenta is posterior, circumvallate, thickened and globular inappearance with a large maternal sinus on the surface. Cord insertion is normal. No anatomic abnormalities are seen today, cardiac and face viewswere better visualized today to complete the anatomy assessment. Active movement is noted. The US findings were reviewed with the patient today. MFM consultation isdictated under separate letter. Thank you for allowing us to participate in the care of your patient. Follow-up No further MFM follow-up at this time. 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
--- OUTSIDE RECORDS SUMMARY | 2024-03-19 15:35 | XMS_ITS | Summary of Care ---
Author Organization [facility] Address [address] [place] [address] Phone Care Team Providers Care Youth Minister Name Role Phone Unavailable Primary Care Provider Unavailabl e Reason for Referral * Specialty Diagnoses / Procedures Referred By Reinier santizo Referred To Contact Valentín Patel Jr., DO [address] [place] [address] Referral ID Status Reason Start Date Expiration Date Visits Re quested Visits Authorized NA Encounter Details Date Type Department Care Team Description 07/03/2021 Routine [facility] Maternal- Medicine [address] [facility] [id number] [place] [address] Valentín Patel Jr., DO [address] [place] [address] GA: 18w0d Allergies No known active allergiesdocumented as of this encounter (statuses as of 07/03/2021) Medications Medication Sig Dispensed Refills Start Date End Date Status Pbyrovfx-Xfk-Zx-FA ( #2 PO) 0 Active VITAMIN D PO Vitamin D 0 Active doxylamine (UNISOM) 25 mg tablet Take 12.5 mg by mouth. 0 04/24/2021 Active pyridOXINE (VITAMIN B-6) 50 mg tablet Take 50 mg by mouth. 0 04/24/2021 Active documented as of this encounter (statuses as of 07/03/2021) Immunizations Name Administration Dates Next Due COVID-19 [...] Sign Reading Time Taken Comments Blood Pressure 127/79 07/03/2021 10:32 AM [facility]DT Pulse 88 07/03/2021 10:32 AM [facility]DT Temperature 37.2 C (98.9 F) 07/03/2021 10:32 AM [facility] Respiratory Rate - - Oxygen Saturation 100% 07/03/2021 10:32 AM AKD T Inhaled Oxygen Concentration - - Weight 88.5 kg (195 lb) 07/03/2021 10:32 AM [facility] Height - - Body Mass Index 27.98 05/24/2021 8:40 AM AKST documented in this encounter Progress Notes * Valentín Patel Jr., DO - 07/03/2021 10:30 AM [facility]DT Images from the original note were not included. Maternal Medicine Follow up Visit Laura Amaro 07/03/2021 [id number] Referring Provider: Mikayla James MD [address] [place] [id number] HPI/CURRENT : I had the privilege of seeing Laura Amaro for a follow up visit today in Maternal Medicine. She is a 35 y.o. with an intrauterine at 18w0d and an Estimated Date of Delivery: 12/04/21 who initially presented for consultation on 05/24/2021 in regards to AMA with low risk cfDNA and an abnormal first trimester ultrasound which showed concerns for an abnormal placenta with possible separation or subchorionic hemorrhage. Ultrasound in our office at that time demonstrated placental findings with a possible developing circumvallate placenta. There was no retroplacental or membranouscollections identified. She presents today for a comprehensive anatomic/placental evaluation and a follow up maternal consultation. Her has been uncomplicated otherwise since her last visit. She currently denies any leaking of fluid, vaginal bleeding or regular contractions. She reports active flutters/ movements at this time. ?? She is unaccompanied at today's visit. No Known Allergies Current Outpatient Medications: ??? doxylamine (UNISOM) 25 mg tablet, Take 12.5 mg by mouth., Disp: , Rfl: ??? pyridOXINE (VITAMIN B-6) 50 mg tablet, Take 50 mg by mouth., Disp: , Rfl: ??? Bxqimupu-Jky-Cn-FA ( #2 PO), , Disp: , Rfl: ??? VITAMIN D PO, Vitamin D, Disp: , Rfl: OB History Para Term AB Living 1 SAB TAB Ectopic Molar Multiple Live Births # Outcome Date GA Lbr Darell/2nd Weight Sex Delivery Anes PTL Lv 1 Current Obstetric Comments G1 SURPRISE gender G1 Paternity HX: Guillermo White, Ht 6', Wt 180lb. Age 42, white ethnicity. Works for [employer]. His sister has identical twins, his maternal uncle and grandparents had cancer. REVIEW OF SYSTEMS: Denies headaches Denies nausea/vomiting/visual changes Denies abdominal pain/cramping/tenderness/regular contractions Denies leg pain, tenderness or swelling Reports + movement/ flutters Denies vaginal bleeding or leakage of fluid All other systems negative PHYSICAL EXAM: Vitals: 07/03/21 1032 BP: 127/79 Pulse: 88 Temp: 98.9 ??F (37.2 ??C) TempSrc: Oral SpO2: 100% Weight: 88.5 kg (195 lb) General: Pleasant, alert and oriented, no acute distress. Lungs: Non labored respirations. Abdomen: Soft, non-tender, gravid. Extremities: No edema. Pelvic exam: Deferred. M Ultrasound (please see separate procedure note in EPIC records): Single intrauterine in breech presentation with normal AFV and normal appearing anatomy with some limited cardiac and facial views. Overall growth is at the 61st%, the AC is at the 55th%. The placenta is posterior and is abnormal in appearance demonstrating folding of the lateral edges. The findings are again suspected to be that of a circumvallate placenta. Discussion: The US findings were reviewed with Laura today. anatomic evaluation today demonstrates no concern for major congenital anomalies although some views of the face and heart are limited. I have recommended a follow-up ultrasound in approximately 8 weeks for repeat evaluation. The previously identified anterior uterine wall that demonstrated what was thought to be a contraction was not visualized early during the evaluation today but did present at the end of the examination again consistent with a uterine wall contraction. We discussed that this is not of an usually clinical significance and that these are common during . In terms of the placenta, it is again identified posteriorly with significant elevation of the lateral edges forming an almost annular or ring placenta most likely consistent with circumvallate. There is a central cord insertion identified. We discussed that circumvallate placentas have been associated with adverse outcomes including growth abnormalities, premature rupture of the membranes (PROM), placental insufficiency and placental abruption which may lead to delivery. I have recommended a follow-up ultrasound in approximately 8 weeksfor repeat evaluation. In the meantime she was instructed to notify your office with any concerns for change in vaginal discharge, vaginal bleeding or leaking of fluid. I again reviewed with Laura that there is no therapy to offer other than conservative observation at this time. If the next ultrasound evaluation demonstrates appropriate growth her follow-up could be performed in where she plans on delivering. Further recommendations and to follow-up as well as delivery site will be made at that time. At the end of our discussion all the patient's questions were answered to her satisfaction and she expressed a clear understanding of the ultrasound findings and our discussion today. Impression/Plan: @ 18w0d 1. Abnormal placenta-suspected circumvallate/ring placenta - Normal appearing anatomic survey and appropriate growth with some limited views of the face and cardiac imaging due to breech presentation with spine up. - Normal-appearing nuchal translucency and ductus venosus Doppler noted on FTS. - Posterior placenta appears to be a circumvallate/ring placenta with a central cord insertion. - Small anterior retromembranous echogenic area may represent prior previously noted polyp. -Recommend follow-up growth in 8 weeks and repeat placental evaluation. Remains at increased risk for adverse outcomes of PPROM, growth restriction, abruption and delivery. ?? 2. Advanced Maternal Age - Low risk cfDNA - Normal-appearing first trimester ultrasound with nuchal translucency and nasal bone noted. -Signs and symptoms of preeclampsia/ labor were reviewed with her today. ICD-10-CM ICD-9-CM 1. Abnormal ultrasound of placenta O28.3 796.5 2. Circumvallate placenta during in second trimester, antepartum O43.112 656.73 3. Primigravida of advanced maternal age in first trimester O09.511 659.53 4. 18 weeks gestation of Z3A.18 V22.2 Follow up: Follow up ultrasound is recommended in 8 weeks for growth and placental evaluation secondary to circumvallate placenta. This has been scheduled in the Maternal Medicine office. Thank you for allowing us to participate in the care of your patient. Please feel free to call withany questions or concerns or if we can provide any further assistance. I spent a total of 20 minutes in chart review, [id number]-[id number] time, post-visit documentation and other services detailed on the day of this encounter, excluding 10 minutes spent on review of the ultrasound findings. Time in room: 1045 Time out room: 1115 Valentín Patel Jr, DO [facility] Maternal Medicine documented in this encounter Plan of Treatment Upcoming Encounters Date Type Specialty Care Team Description 08/28/2021 Routine Maternal and Fe tavo Medicine Valentín Patel Jr., [address] [place] [id number] Pending Results Name Type Priority Associated Diagnoses Date /Time US OB 14+ Wks Detail [place] Ea Addt Imaging Routine Abnormal ultrasound of placenta Primigravida of advanced maternal age in first trimester Circumvallate placenta during in second trimester, antepartum 07/03/2021 10:18 AM [facility] Health Maintenance Due Date Last Done Comments Hepatitis C Screening 1985 Cervical Cancer Screening (Pap) 12/09/2015 Vaccine: Dtap/Tdap/Td (2 - T d or Tdap) 07/31/2025 08/01/2015 Vaccine: Influenza Completed 12/21/2020, 1 , 12/25/2018, Additional history exists COVID-19 Vaccine Completed 12/23/2020, 10/2020, 03/11/2020 documented as of this encounter Visit Diagnoses Diagnosis Abnormal ultrasound of placenta- Primary Abnormal findings on screening Circumvallate placenta during in second trimester, antepartum Primigravida of advanced maternal age in first trimester 18 weeks gestation of state, incidental documented in this encounter Advance Directives Documents on File Type Date Recorded Patient Survey Project Manager Expl anation Power of Rug Inspector Advance Directive
== END 2024-03-19 15:45 | disposition home or self-care (01) ==
LOC: ED 15:27
PROVIDERS: Emergency Provider Emergency Medicine
DX: R39.15 Urgency of urination (principal); O99.891 Other specified diseases and conditions complicating pregnancy; N13.30 Unspecified hydronephrosis; Z3A.22 22 weeks gestation of pregnancy
CPT/HCPCS: 76775; 81001; 87086; 99283; 99284